=== PATIENT | female | born 1935 | race Caucasian/White ===

== ENCOUNTER 2021-04-19 10:59 | Outpatient (NON) | payer MEDICARE, SELFPAY ==
[2021-04-19 11:50] LABS: IFOB Positive Control Positive; Immunochemical Fecal Occult Bl Negative (N)
== END 2021-04-19 11:00 | disposition home or self-care (01) ==
LOC: ANHLAB 11:02
PROVIDERS: PCP Internal Medicine Geriatric Medicine; Visit Provider Internal Medicine
DX: D50.0 Iron deficiency anemia secondary to blood loss (chronic) (principal)
CPT/HCPCS: 82274

== ENCOUNTER 2024-04-12 16:36 | Outpatient (NON) | payer MEDICARE, SELFPAY ==
[2024-04-12 17:05] LABS: Basophils Absolute Auto 0.02 K/mm3 (0.00-0.10); Basophils Percent Auto 0.2 % (0.0-1.0); Eosinophils Absolute Auto 0.22 K/mm3 (0.02-0.50); Eosinophils Percent Auto 2.4 % (1.0-6.0); Hematocrit 36.6 % (35.0-42.0); Hemoglobin 11.2 g/dL (11.7-13.8); Immature Granulocyte Absolute 0.04 K/mm3 (0.00-0.00); Immature Granulocyte Percent A 0.4 % (0.0-0.0); Lymphocytes Absolute Auto 1.73 K/mm3 (1.10-4.50); Lymphocytes Percent Auto 19.1 % (18.0-42.0); Mean Corpuscular HGB Conc 30.6 g/dL (32-36); Mean Corpuscular Hemoglobin 26.8 pg (27.0-31.0); Mean Corpuscular Volume 87.6 fL (78.0-102.0); Mean Platelet Volume 9.7 fl (9.2-11.8); Monocytes Absolute Auto 0.74 K/mm3 (0.10-0.90); Monocytes Percent Auto 8.2 % (2.0-11.0); Neutrophils Absolute Auto 6.32 K/mm3 (1.70-7.20); Neutrophils Percent Auto 69.7 % (50.0-70.0); Platelet Count Result 230 K/mm3 (150-420); Red Blood Count 4.18 M/mm3 (4.20-5.40); Red Cell Distribution Width 21.6 % (11.6-14.4); White Blood Count 9.1 K/mm3 (4.8-10.8)
[2024-04-12 17:35] LABS: Alanine Aminotransferase 28 U/L (14-59); Alkaline Phosphatase 49 U/L (46-116); Anion Gap 10 mmol/L (4-12); Aspartate Amino Transferase 15 U/L (15-37); Bilirubin,Total 0.4 mg/dL (0.00-1.00); Blood Urea Nitrogen 19 mg/dL (7-18); Calcium 9.7 mg/dL (8.5-10.1); Carbon Dioxide 31 mmol/L (21-32); Chloride 100 mmol/L (98-108); Estimated Glomerular Filt Rate > 60; Glucose 119 mg/dL (70-99); NT Pro B Type Natriuretic Pept 249 pg/mL (0-450); Osmolality Calculated 295 mOsm/kg (285-295); Potassium 4.4 mmol/L (3.5-5.1); Sodium 141 mmol/L (136-145); Total Protein 6.4 g/dL (6.4-8.2)
[2024-04-12 17:37] LABS: CRP < 0.5 mg/dL (0.0-0.9)
[2024-04-12 17:43] LABS: D Dimer 1.92 mg/L (0.19-0.50)
[2024-04-12 18:25] LABS: Erythrocyte Sedimentation Rate 27 mm/hr (0-30)
== END 2024-04-12 16:37 | disposition home or self-care (01) ==
LOC: CHSLAB 16:39
PROVIDERS: PCP Internal Medicine Geriatric Medicine; Visit Provider Internal Medicine Geriatric Medicine
DX: R06.02 Shortness of breath (principal); I24.0 Acute coronary thrombosis not resulting in myocardial infarction; I51.89 Other ill-defined heart diseases; M06.09 Rheumatoid arthritis without rheumatoid factor, multiple sites
CPT/HCPCS: 36415; 80053; 83880; 85025; 85380; 85652; 86140

== ENCOUNTER 2024-05-12 10:06 | Outpatient (NON) | payer MEDICARE, SELFPAY ==
[2024-05-12 10:24] LABS: Hematocrit 33.1 % (35.0-42.0); Hemoglobin 9.9 g/dL (11.7-13.8); Mean Corpuscular HGB Conc 29.9 g/dL (32-36); Mean Corpuscular Hemoglobin 25.7 pg (27.0-31.0); Mean Platelet Volume 9.6 fl (9.2-11.8); Platelet Count Result 256 K/mm3 (150-420); Red Blood Count 3.85 M/mm3 (4.20-5.40); Red Cell Distribution Width 17.3 % (11.6-14.4); White Blood Count 7.8 K/mm3 (4.8-10.8)
[2024-05-12 10:33] LABS: Alanine Aminotransferase 32 U/L (14-59); Albumin Level 3.3 g/dL (3.4-5.0); Alkaline Phosphatase 60 U/L (46-116); Anion Gap 7 mmol/L (4-12); Aspartate Amino Transferase 16 U/L (15-37); Bilirubin,Total 0.4 mg/dL (0.00-1.00); Blood Urea Nitrogen 25 mg/dL (7-18); Calcium 9.5 mg/dL (8.5-10.1); Carbon Dioxide 28 mmol/L (21-32); Chloride 105 mmol/L (98-108); Estimated Glomerular Filt Rate > 60; Glucose 107 mg/dL (70-99); Osmolality Calculated 294 mOsm/kg (285-295); Phosphorus 3.4 mg/dL (2.6-4.7); Potassium 3.6 mmol/L (3.5-5.1); Sodium 140 mmol/L (136-145); Total Protein 7.2 g/dL (6.4-8.2)
[2024-05-12 10:36] LABS: CRP < 0.5 mg/dL (0.0-0.9)
[2024-05-12 10:54] LABS: Band Neutrophils Percent 2 % (0-6); Basophils Absolute Manual 0.15 K/mm3 (0-0.1); Basophils Percent Manual 2 % (0-1); Eosinophils Absolute Manual 1.09 K/mm3 (0.02-0.50); Eosinophils Percent Manual 14 % (1-6); Lymphocytes Absolute Manual 2.18 K/mm3 (1.1-4.5); Lymphocytes Percent Manual 28 % (18-44); Monocytes Percent Manual 9 % (3-9); Neutrophils Percent Manual 45 % (46-73); Platelet Clumps Present; Platelet Estimate Adequate (Adequate); Total Cells Counted 100
[2024-05-12 10:55] LABS: Schistocytes None Seen
[2024-05-12 10:56] LABS: Neutrophils Absolute Manual 3.66 K/mm3 (1.7-7.2)
--- OUTSIDE RECORDS SUMMARY | 2024-05-12 11:24 | XMS_ITS ---
Care Plan - [facility] Created on: May 12, 2024 JINGDON BRIANA Tru : 1935 Sex: Female Author Organization [facility] Address [address] [place] [address] Phone Care Team Providers Care Mandrel Press Hand Name Role Phone JUAN DAVID STONE Primary Care Provider [phone]
--- OUTSIDE RECORDS SUMMARY | 2024-05-12 11:24 | XMS_ITS | Encounter Summary ---
Author Organization [facility] Address [address] [place] [address] Phone Care Team Providers Care Real Estate Clerk Name Role Phone Elsy Chance MD Primary Care Provider +- [phone] Hayden Minor DC Unavailable +[phone] Robby Ruiz MD Unavailable +[phone] Mateo Hogan MD Unavailable +[phone] Lupis Linares MD Unavailable +[phone] Demarcus Cardenas MD Unavailable +[phone] Enrrique Nath MD Unavailable [phone] Ed Zavala MD Unavailable +[phone] Alexey Carrera MD Unavailable +[phone] Tejal MeyerW Unavailable +[phone] Encounter Details Date Type Department Care Team (Late st Contact Info) Description 10/08/2021 Orders Only [facility] [address] [place] [address] Elsy Chance MD [address] [place] [address] Social History Tobacco Use Types Packs/Day Years Used Date Smoking Tobacco: Former Smokeless Tobacco: Never Alcohol Use Standard Drinks/Week Comments Not Currently 0 (1 standard drink = 0.6 oz pur e alcohol) PHQ-2 Answer Date Recorded PHQ-2 Total Score (If total score is 3 or more points, staff should administer the PHQ-9) 6 05/18/2021 Comments No Sex and Gender Information Value Date Recorded Sex Assigned at Not on file Legal Sex Female 10:51 AM ROCK [place]ON Gender Identity Not on file Sexual Orientation Not on file Occupation Industry Job Start Date Job End Date retired Not on file Not on file Not on file documented as of this encounter Plan of Treatment Not on file documented as of this encounter Procedures Procedure Name Priority Date/Time Associated Diagnosis Comments SCAN - RADIOLOGY/IMAGING 10/08/2021 documented in this encounter Results * SCAN - RADIOLOGY/IMAGING (10/08/2021) Anatomical Region Laterality Modality Other Elsy Chance MD Edited Res ult - Final documented in this encounter Visit Diagnoses Not on filedocumented in this encounter Additional Health Concerns Infection Onset Date Last Indicated Resolved Time COVID: Suspected 07/13/2022 07/13/2022 07/13/2022 4:36 PM CDT COVID: Suspected 01/31/2024 01/31/2024 01/31/2024 7:16 PM R[place]ON COVID19 01/31/2024 01/31/2024 02/10/2024 3:05 AM ROCK [place]ON COVID: Recovered Comment:Added based on recent COVID infection. 02/10/2024 02/12/2024 02/25/2024 7:[address] COVID19 02/24/2024 02/24/2024 02/25/2024 7:16 AM R[place]ON COVID: Recovered Comment:Added based on recent COVID infection. 02/25/2024 02/25/2024 COVID19 03/02/2024 03/02/2024 03/12/2024 3:07 AM R[place]ON COVID: Suspected 04/30/2024 04/30/2024 04/30/2024 1:45 PM CDT documented as of this encounter Care Teams Real Estate Clerk Relationship Specialty Start Date End Date Elsy Chance MD PCP - General 05/10/16 Hayden Minor DC Chiropractic Medicine 09/17/16 Robby Ruiz MD [address] [place] [address] [place] [address] Consulting Physician Ophthalmology 09/17/16 Mateo Hogan MD [address] [facility] [address] [place] [address] Consulting Physician Ophthalmology 09/17/16 Lupis Linares MD [address] [facility] [address] [place] [address] Consulting Physician Pain Management 09/17/16 Demarcus Cardenas MD [address] [place] [address] [place] [address] Consulting Physician Gastroenterology 09/17/16 Enrrique Nath MD [address] [place] [address] [address] [place] [address] Consulting Physician Rheumatology 11/05/17 [place] [address] [place] [address] [address] Consulting Physician Cardiovascular Disease 11/05/17 Alexey Carrera MD [place] [address] Referring Physician Allergy and Immunology 05/12/19 Tejal Meyer, [address] [place] [address] Manufacturing Executive Hose Maker 09/09/23 10/02/23 documented as of this encounter
--- OUTSIDE RECORDS SUMMARY | 2024-05-12 11:24 | XMS_ITS | Encounter Summary ---
Author Organization [facility] Address [address] [place] [address] Phone Care Team Providers Care Customer Service Dispatcher Name Role Phone Elsy Chance MD Primary Care Provider + [phone] Hayden Minor DC Unavailable +[phone] Robby Ruiz MD Unavailable +[phone] Mateo Hogan MD Unavailable +[phone] Lupis Linares MD Unavailable +[phone] Demarcus Cardenas MD Unavailable +[phone] Enrrique Nath MD Unavailable [phone] Ed Zavala MD Unavailable +[phone] Alexey Carrera MD Unavailable +[phone] Tejal MeyerW Unavailable [phone] Encounter Details Date Type Department Care Team (Late st Contact Info) Description 08/08/2022 Orders Only [facility] [address] [place] [address] Scanning, Provider Social History Tobacco Use Types Packs/Day Years Used Date Smoking Tobacco: Former Smokeless Tobacco: Never Alcohol Use Standard Drinks/Week Comments Not Currently 0 (1 standard drink = 0.6 oz pur e alcohol) PHQ-2 Answer Date Recorded PHQ-2 Total Score (If total score is 3 or more points, staff should administer the PHQ-9) 4 05/24/2022 Comments No Sex and Gender Information Value Date Recorded Sex Assigned at Not on file Legal Sex Female 10:51 AM RADIO STATION AUDIO ENGINEER Gender Identity Not on file Sexual Orientation Not on file Occupation Industry Job Start Date Job End Date retired Not on file Not on file Not on file documented as of this encounter Plan of Treatment Not on file documented as of this encounter Procedures Procedure Name Priority Date/Time Associated Diagnosis Comments SCAN - RADIOLOGY/IMAGING 08/08/2022 documented in this encounter Results * SCAN - RADIOLOGY/IMAGING (08/08/2022) Anatomical Region Laterality Modality Other us Provider Scanning Final Result documented in this encounter Visit Diagnoses Not on filedocumented in this encounter Additional Health Concerns Infection Onset Date Last Indicated Resolved Time COVID: Suspected 01/31/2024 01/31/2024 01/31/2024 7:16 PM RADIO STATION AUDIO ENGINEER COVID19 01/31/2024 01/31/2024 02/10/2024 3:05 AM RADIO STATION AUDIO ENGINEER COVID: Recovered Comment:Added based on recent COVID infection. 02/10/2024 02/12/2024 02/25/2024 7:[address] COVID19 02/24/2024 02/24/2024 02/25/2024 7:16 AM RADIO STATION AUDIO ENGINEER COVID: Recovered Comment:Added based on recent COVID infection. 02/25/2024 02/25/2024 COVID19 03/02/2024 03/02/2024 03/12/2024 3:07 AM RADIO STATION AUDIO ENGINEER COVID: Suspected 04/30/2024 04/30/2024 04/30/2024 1:45 PM CDT documented as of this encounter Care Teams Customer Service Dispatcher Relationship Specialty Start Date End Date Elsy Chance MD PCP - General 05/10/16 Hayden Minor DC Chiropractic Medicine 09/17/16 Robby Ruiz MD [address] [place] [address] [place] [address] Consulting Physician Ophthalmology 09/17/16 Mateo Hogan MD [address] [facility] [address] [place] [address] Consulting Physician Ophthalmology 09/17/16 Lupis Linares MD [address] [facility] [address] [place] [address] Consulting Physician Pain Management 09/17/16 Demarcus Cardenas MD [address] [place] [address] [address] [place] [address] Consulting Physician Gastroenterology 09/17/16 Enrrique Nath MD [address] [place] [address] [address] [place] [address] Consulting Physician Rheumatology 11/05/17 [place] [id number] [place] [address] [address] [place] [address] Consulting Physician Cardiovascular Disease 11/05/17 Alexey Carrera MD [address] [facility] [place] [address] Referring Physician Allergy and Immunology 05/12/19 Tejal Meyer, [facility] [address] [facility] [address] [place] [address] Rough Rice Tender Bisque Ware Dipper 09/09/23 10/02/23 documented as of this encounter
--- OUTSIDE RECORDS SUMMARY | 2024-05-12 11:24 | XMS_ITS | Encounter Summary ---
Author Organization [facility] Healthcare Address [address] [place] [address] Care Team Providers Care Cistern Room Working Supervisor Name Role Phone Elsy Chance MD Primary Care Provider + [phone] Hayden Minor DC Unavailable +[phone] Robby Ruiz MD Unavailable +[phone] Mateo Hogan MD Unavailable +[phone] Lupis Linares MD Unavailable +[phone] Demarcus Cardenas MD Unavailable +[phone] Enrrique Nath MD Unavailable [phone] Ed Zavala MD Unavailable [phone] Alexey Carrera MD Unavailable +[phone] Encounter Details Date Type Department Care Team (Late st Contact Info) Description 05/10/[address] [facility] Medical Group [facility] [address] [place] [address] Elsy Chance MD [address] [place] [address] Social History Tobacco Use Types Packs/Day Years Used Date Smoking Tobacco: Former Smokeless Tobacco: Never Alcohol Use Standard Drinks/Week Comments Not Currently 0 (1 standard drink = 0.6 oz pur e alcohol) [facility] Utilities Answer Date Recorded In the past 12 months has th e electric, gas, oil, or water company threatened to shut off services in your home? No 02/27/2024 Social Connection and Isolat ion Panel [NHANES] Answer Date Recorded In a typical week, how many times do you talk on the phone with family, friends, or neighbors? More than three times a week 02/27/2024 How often do you get togethe r with friends or relatives? More than three times a week 02/27/2024 How often do you attend chur ch or pentecostalism services? Never 02/27/2024 Do you belong to any clubs o r organizations such as quaker groups, unions, fraternal or athletic groups, or school groups? No 02/27/2024 How often do you attend meet ings of the clubs or organizations you belong to? Never 02/27/2024 Are you , , di vorced, , never , or living with a partner? 02/27/2024 Overall Financial Resource Strain (CARDIA) Answe r Date Recorded How hard is it for you to pa y for the very basics like food, housing, medical care, and heating? Somewhat hard 02/27/2024 PHQ-2 Answer Date Recorded PHQ-2 Total Score (If total score is 3 or more points, staff should administer the PHQ-9) 4 09/08/2023 Hunger Vital Sign Answer Date Recorded Within the past 12 months, y ou worried that your food would run out before you got the money to buy more. Never true 02/26/19 25 Within the past 12 months, t he food you bought just didn't last and you didn't have money to get more. Never true 02/27/2024 PRAPARE - Transportation Answer Date Re corded In the past 12 months, has l ack of transportation kept you from medical appointments or from getting medications? No 02/10 In the past 12 months, has l ack of transportation kept you from meetings, work, or from getting things needed for daily living? No 02/27/2024 PHQ-9 Answer Date Recorded PHQ-9 Total Score 14 09/08/2023 Housing Stability Vital Sign Answer [place] Recorded In the last 12 months, was t here a time when you were not able to pay the mortgage or rent on time? No 02/27/2024 In the past 12 months, how m any times have you moved where you were living? 0 02/27/2024 At any time in the past 12 m [place], were you homeless or living in a usp (including now)? No 02/27/2024 Personal Safety Answer Date Recorded Have you ever been in or are you currently in a harmful physical or emotional relationship or is someone making you feel afraid or unsafe? Denies 02/25/2024 Education Answer Date Recorded What is the highest level of school you have completed or the highest degree you have received? Some college, no degree 02/27/2024 Comments No Sex and Gender Information Value Date Recorded Sex Assigned at Not on file Legal Sex Female 10:51 AM SWATCH FOLDER Gender Identity Not on file Sexual Orientation Not on file Occupation Industry Job Start Date Job End Date retired Not on file Not on file Not on file documented as of this encounter Miscellaneous Notes * Telephone Encounter - Faye Siu LPN - 05/10/2024 4:09 PM CDT Informed , Rodolfo, [phone] that [facility] recommends ER visit since pt is on 2nd antibiotic without improvement and she is weaker now than she has been. Rodolfo did voice understanding and states he will take pt to [facility] ER. Rodolfo had no further questions/concerns at this time. * Telephone Encounter - Lisa Hanson NP - 05/10/2024 3:54 PM CDT Patient needs to present to the emergency room for further evaluation at this time given 2 different antibiotics and worsening symptoms. * Telephone Encounter - Faye Siu LPN - 05/10/2024 3:49 PM CDT Spoke with pt , Rodolfo, [phone] who states pt is taking Levaquin & Tessalon Perles as DESI advised at office visit 05/07/24. However, Rodolfo states pt cough and SOB have not improved at all and he feels pt is getting weaker. Rodolfo states Spo2 was 89% earlier this morning at rest and when he repeated the test about 10 - 15 minutes later, it did come up to 91 %. TO DESI - Please advise. * Telephone Encounter - Maggy Montes - 05/10/2024 3:40 PM CDT Pt's cough is not improving, wheezing, SOB. O2 this morning 89 and 91 this afternoon. Taking the abx Levaquin and tessalon pearls. Also taking an expectorant. Cough is non-productive. documented in this encounter Plan of Treatment Not on file documented as of this encounter Visit Diagnoses Not on filedocumented in this encounter Additional Health Concerns Infection Onset Date Last Indicated Resolved Time COVID: Recovered Comment:Added based on recent COVID infection. 02/25/2024 02/25/2024 documented as of this encounter Care Teams Cistern Room Working Supervisor Relationship Specialty Start Date End Date Elsy Chance MD PCP - General 05/10/16 Hayden Minor DC Chiropractic Medicine 09/17/16 Robby Ruiz MD [address] [place] [address] [place] [address] Consulting Physician Ophthalmology 09/17/16 Mateo Hogan MD [facility][note 3] [address] [address] Consulting Physician Ophthalmology 09/17/16 Lupis Linares MD [address] [place] [place], [place] [address] [address] [place] [address] Consulting Physician Pain Management 09/17/16 Demarcus Cardenas MD [address] [place] [address] [address] [place] [address] Consulting Physician Gastroenterology 09/17/16 Enrrique Nath MD [address] [place] [address] [address] [place] [address] Consulting Physician Rheumatology 11/05/17 [place] [address] [facility] [address] [place] [address] Consulting Physician Cardiovascular Disease 11/05/17 Alexey Carrera MD [place] [address] Referring Physician Allergy and Immunology 05/12/19 documented as of this encounter
--- OUTSIDE RECORDS SUMMARY | 2024-05-12 11:24 | XMS_ITS | Encounter Summary ---
Author Organization [facility] Address [address] [place] [address] Phone Care Team Providers Care Control And Recovery Special Tactics Name Role Phone Elsy Chance MD Primary Care Provider + [phone] Hayden Minor DC Unavailable +[phone] Robby Ruiz MD Unavailable [phone] Mateo Hogan MD Unavailable [phone] Lupis Linares MD Unavailable +[phone] Demarcus Cardenas MD Unavailable +[phone] Enrrique Nath MD Unavailable [phone] Ed Zavala MD Unavailable +[phone] Alexey Carrera MD Unavailable +[phone] Tejal MeyerW Unavailable [phone] Encounter Details Date Type Department Care Team (Late st Contact Info) Description 08/30/2021 Orders Only [facility] [address] [place] [address] Scanning, Provider Social History Tobacco [...] on file Legal Sex Female 10:51 AM BOBBIN HANDLER Gender Identity Not on file Sexual Orientation Not on file Occupation Industry Job Start Date Job End Date retired Not on file Not on file Not on file documented as of this encounter Plan of Treatment Not on file documented as of this encounter Procedures Procedure Name Priority Date/Time Associated Diagnosis Comments SCAN - LABS 08/30/2021 documented in this encounter Results * SCAN - LABS (08/30/2021) us Provider Scanning Final Result documented in this encounter Visit Diagnoses Not on filedocumented in this encounter Additional Health Concerns Infection Onset Date Last Indicated Resolved Time COVID: Suspected 07/13/2022 07/13/2022 07/13/2022 4:36 PM CDT COVID: Suspected 01/31/2024 01/31/2024 01/31/2024 7:16 PM BOBBIN HANDLER COVID19 01/31/2024 01/31/2024 02/10/2024 3:05 AM BOBBIN HANDLER COVID: Recovered Comment:Added based on recent COVID infection. 02/10/2024 02/12/2024 02/25/2024 7:[address] COVID19 02/24/2024 02/24/2024 02/25/2024 7:16 AM BOBBIN HANDLER COVID: Recovered Comment:Added based on recent COVID infection. 02/25/2024 02/25/2024 COVID19 03/02/2024 03/02/2024 03/12/2024 3:07 AM BOBBIN HANDLER COVID: Suspected 04/30/2024 04/30/2024 04/30/2024 1:45 PM CDT documented as of this encounter Care Teams Control And Recovery Special Tactics Relationship Specialty Start Date End Date Elsy Chance MD PCP - General 05/10/16 Hayden Minor, [facility] Chiropractic Medicine 09/17/16 Robby Ruiz MD [address] [place] [address] [place] [address] Consulting Physician Ophthalmology 09/17/16 Mateo Hogan MD [address] [facility] [address] [place] [address] Consulting Physician Ophthalmology 09/17/16 Lupis Linares MD [address] [facility] [address] [place] [address] Consulting Physician Pain Management 09/17/16 Demarcus Cardenas MD [address] [place] [address] [address] [place] [address] Consulting Physician Gastroenterology 09/17/16 Enrrique Nath MD [address] [place] [address] [address] [place] [address] Consulting Physician Rheumatology 11/05/17 [place] [address] [facility] [address] [place] [address] Consulting Physician Cardiovascular Disease 11/05/17 Alexey Carrera MD [facility] [facility] [place] [address] Referring Physician Allergy and Immunology 05/12/19 Tejal Meyer, [facility] [address] [facility] [address] [place] [address] Tag Meter Operator Aircraft Electrician 09/09/23 10/02/23 documented as of this encounter
--- OUTSIDE RECORDS SUMMARY | 2024-05-12 11:24 | XMS_ITS | Encounter Summary ---
Author Organization [facility] Address [address] [place] [address] Care Team Providers Care Slotter Operator Helper Name Role Phone Unavailable Primary Care Provider Unavailabl e Encounter Details Date Type Department Care Team (Latest Contact Info) Description 03/22/2002 Outpatient Historical [facility] Yaakov Godoy MD [address] [place] [address] JOINT PAIN-PELVIS (Primary Dx) Social History Tobacco Use Types Packs/Day Years Used Date Smoking Tobacco: Never Assessed Comments Unknown Sex and Gender Information Value Date Recorded Sex Assigned at Not on file Legal Sex Female 3:02 AM LEATHER CRAFTSMAN Gender Identity Not on file Sexual Orientation Not on file documented as of this encounter Plan of Treatment Not on file documented as of this encounter Visit Diagnoses Diagnosis Pain in joint, pelvic region and thigh- Primary documented in this encounter
--- OUTSIDE RECORDS SUMMARY | 2024-05-12 11:24 | XMS_ITS | Continuity of Care Document ---
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 [address] [place] [address]- Encounter Diagnosis Pneumonia(Discharge Diagnosis) - 05/10/24 Cough(Discharge Diagnosis) - 05/10/24 Discharge Disposition: Home or Self Care Attending Physician: Zhang Yeboah MD Referring Physician: Zhang Yeboah MD Encounter Type: Emergency Allergies, Adverse Reactions, Alerts Substance Criticality Severity Reaction Reaction Severity Status codeine Unable to assess criticality Unknown Stomach pain Active amoxicillin Unable to assess criticality Unknown Active cephalexin Unable to assess criticality Unknown Active clarithromycin Unable to assess criticality Unknown Diarrhea Active penicillin Unable to assess criticality Unknown Active niacin Unable to assess criticality Unknown Flushing Active lisinopril Unable to assess criticality Unknown Active etodolac Unable to assess criticality Unknown Active leflunomide Unable to assess criticality Unknown Active sulfa drugs Unable to assess criticality Unknown Active iodine Unable to assess criticality Unknown Active Keflex Unable to assess criticality Unknown Active Biaxin Unable to assess criticality Unknown Active contrast media (iodine-based) Unable to assess criticality Unknown Active BOOKER inhibitors Unable to assess criticality Unknown Cough Active traMADol Unable to assess criticality Unknown Active DULoxetine Unable to assess criticality Unknown Active Immunizations Given and Recorded Vaccine Date Status Refusal Reason influenza virus vaccine, inactivated 09/28/23 Mohan rded influenza virus vaccine, inactivated 03/24/23 Mohan rded influenza virus vaccine, inactivated 12/02/22 Mohan rded influenza virus vaccine, inactivated 11/28/21 Mohan rded influenza virus vaccine, inactivated 12/11/20 Mohan rded influenza virus vaccine, inactivated 12/01/20 Mohan rded influenza virus vaccine, inactivated 01/10/20 Mohan rded influenza virus vaccine, inactivated 12/23/18 Mohan rded influenza virus vaccine, inactivated 12/01/13 Mohan rded influenza virus vaccine, inactivated 12/02/12 Mohan rded influenza virus vaccine, inactivated 12/30/11 Mohan rded RSV vaccine preF3, recombinant 06/11/23 Recorded SARS-CoV-2 (COVID-19) [employer] (cvx [id number]) 06/11/23 Re corded SARS-CoV-2 mRNA (tozinameran) vaccine 10/13/20 Rec orded SARS-CoV-2 mRNA (tozinameran) vaccine 04/05/20 Rec orded SARS-CoV-2 mRNA (tozinameran) vaccine 03/15/20 Rec orded zoster vaccine, recombinant 10/26/18 Recorded pneumococcal 13-valent conjugate vaccine 04/11/14 Recorded tetanus/diphtheria/pertussis, acel(Tdap) 02/08/11 Recorded Medications Albuterol (Eqv-Proventil HFA) 0 Refill(s) Start Date: 09/25/23 Status: Ordered Repeat number: 1 amLODIPine 2.5 mg oral tablet = 2 tab, Oral, Daily, # 30 tab, 0 Refill(s) Start Date: 09/25/23 Status: Ordered Quantity: 30.0 Unit: Repeat number: 1 benzonatate 200 mg oral capsule TID, PRN as needed for cough, 0 Refill(s) Start Date: 05/10/24 Status: Ordered Repeat number: 1 buPROPion 150 mg/24 hours (XL) oral tablet, extended release = 1 tab, Oral, every 24 hr, # 30 tab, 0 Refill(s) Start Date: 09/15/23 Status: Ordered Quantity: 30.0 Unit: Repeat number: 1 cholecalciferol 50 mcg (2000 intl units) oral capsule = 1 cap, Oral, Daily, # 60 cap, 0 Refill(s) Start Date: 09/25/23 Status: Ordered Quantity: 60.0 Unit: Repeat number: 1 Crestor 10 mg oral tablet = 1 tab, Oral, Daily, # 30 tab, 0 Refill(s) Start Date: 09/15/23 Status: Ordered Quantity: 30.0 Unit: Repeat number: 1 donepezil 10 mg oral tablet = 1 tab, Oral, every day at bedtime, # 30 tab, 0 Refill(s) Start Date: 09/25/23 Status: Ordered Quantity: 30.0 Unit: Repeat number: 1 famotidine 20 mg oral tablet = 1 tab, Oral, BID, # 30 tab, 0 Refill(s) Start Date: 09/15/23 Status: Ordered Quantity: 30.0 Unit: Repeat number: 1 hydroxychloroquine 200 mg oral tablet 1 tab, Oral, Daily, 0 Refill(s) Start Date: 03/02/24 Status: Ordered Repeat number: 1 Jardiance 25 mg oral tablet = 1 tab, Oral, every morning, # 30 tab, 0 Refill(s) Start Date: 09/15/23 Status: Ordered Quantity: 30.0 Unit: Repeat number: 1 labetalol 100 mg oral tablet = 1 tab, Oral, BID, # 60 tab, 0 Refill(s) Start Date: 09/25/23 Status: Ordered Quantity: 60.0 Unit: Repeat number: 1 levoFLOXacin 500 mg oral tablet 1 tab, every 24 hr, 0 Refill(s) Start Date: 05/10/24 Status: Ordered Repeat number: 1 metFORMIN 500 mg oral tablet = 1 tab, Oral, BID, # 60 tab, 0 Refill(s) Start Date: 09/15/23 Status: Ordered Quantity: 60.0 Unit: Repeat number: 1 MiraLax oral powder for reconstitution 17 gm, Oral, Daily, # 238 gm, 0 Refill(s) Start Date: 09/15/23 Status: Ordered Quantity: 238.0 Unit: g Repeat number: 1 Myrbetriq 25 mg oral tablet, extended release = 1 tab, Oral, Daily, do not crush or chew, # 30 tab, 0 Refill(s) Start Date: 09/25/23 Status: Ordered Quantity: 30.0 Unit: Repeat number: 1 PreserVision AREDS 0 Refill(s) Start Date: 09/25/23 Status: Ordered Repeat number: 1 Problem List Diagnosis Diagnosis Type Effective Dates [facility] Service Informant Pneumonia Discharge Diagnosis 05/10/24 Cough Discharge Diagnosis 05/10/24 Procedures Procedure Date Related Diagnosis Body Site Status Cardiac catheterization 1 05/08/17 Completed Cataract extraction 2008 Compl eted Cholecystectomy; 1989 Complete d Dilation and curettage 1959 Co mpleted Adenoidectomy, primary; age 12 or over 1942 Completed Tonsillectomy 1942 Completed Hysterectomy Completed Sinusotomy frontal; oblitera tive, with osteoplastic flap, coronal incision Completed 1NORMAL CORONARIES Results Laboratory List Name Date Automated Diff 05/10/24 BNP 05/10/24 CBC w/ Diff 05/10/24 Comprehensive Metabolic Panel (CMP) 05/10 Coronavirus (COVID-19)/Flu/RSV (GeneXper t) 05/10/24 Lactic Acid (Venous) 05/10/24 Most recent to oldest [Reference Range]: 1 Estimated Creatinine Clearance 48.65 mL/ min 1 (05/10/24 6:07 PM) WBC [4.50-11.00 x10^3/mcL] 8.51 x10^3/mc L (05/10/24 5:38 PM) RBC [4.00-5.20 x10^6/mcL] 3.62 x10^6/mcL *LOW* (05/10/24 5:38 PM) Neutro Auto [45.0-76.0 %] 59.0 % (05/10/24 5:38 PM) Lymph Auto [14.0-45.0 %] 18.3 % (05/10/24 5:38 PM) Camp Auto [1.0-10.0 %] 10.8 % *HI* (05/10/24 5:38 PM) Basophil Auto [0.0-2.0 %] 0.4 % (05/10/24 5:38 PM) BUN [10-20 mg/dL] 18 mg/dL (05/10/24 5:38 PM) Glucose Level [70-105 mg/dL] 98 mg/dL (05/10/24 5:38 PM) Potassium Level [3.5-5.1 mmol/L] 4.2 mmo l/L (05/10/24 5:38 PM) Baso Absolute [0.00-0.20 x10^3/mcL] 0.03 x10^3/mcL (05/10/24 5:38 PM) MCV [80.0-100.0 fL] 84.3 fL (05/10/24 5:38 PM) AST [5-34 unit/L] 17 unit/L (05/10/24 5:38 PM) ALT [0-55 IntlUnit/L] 31 IntlUnit/L (05/10/24 5:38 PM) MCHC [31.0-36.0 gm/dL] 31.5 gm/dL (05/10/24 5:38 PM) Sodium Level [136-145 mmol/L] 141 mmol/L (05/10/24 5:38 PM) Lymph Absolute [1.00-4.80 x10^3/mcL] 1.5 6 x10^3/mcL (05/10/24 5:38 PM) Hct [38.0-47.0 %] 30.5 % *LOW* (05/10/24 5:38 PM) Calcium Level [8.4-10.2 mg/dL] 10.0 mg/d L (05/10/24 5:38 PM) Camp Absolute [0.00-0.80 x10^3/mcL] 0.92 x10^3/mcL *HI* (05/10/24 5:38 PM) Albumin Level [3.4-4.8 gm/dL] 3.4 gm/dL (05/10/24 5:38 PM) Protein Total [6.4-8.3 gm/dL] 6.6 gm/dL (05/10/24 5:38 PM) MCH [25.0-35.0 pg] 26.5 pg (05/10/24 5:38 PM) Neutro Absolute [1.80-7.70 x10^3/mcL] 5. 02 x10^3/mcL (05/10/24 5:38 PM) Bilirubin Total [0.2-1.2 mg/dL] 0.3 mg/d L (05/10/24 5:38 PM) Hgb [12.0-16.0 gm/dL] 9.6 gm/dL *LOW* (05/10/24 5:38 PM) Alk Phos [40-150 IntlUnit/L] 41 IntlUnit /L (05/10/24 5:38 PM) MPV [6.0-11.0 fL] 8.9 fL (05/10/24 5:38 PM) Platelets [150-400 x10^3/mcL] 211 x10^3/ mcL (05/10/24 5:38 PM) CO2 [22.0-29.0 mEq/L] 23.0 mEq/L (05/10/24 5:38 PM) Eos Absolute [0.00-0.45 x10^3/mcL] 0.96 x10^3/mcL *HI* (05/10/24 5:38 PM) Lactic Acid, Plasma (Venous) [0.5-2.2 mm ol/L] 2.2 mmol/L (05/10/24 5:38 PM) BNP [10.0-100.0 pg/mL] 101.1 pg/mL *HI* (05/10/24 5:38 PM) Chloride Level [98-107 mmol/L] 107 mmol/ L (05/10/24 5:38 PM) Globulin Level [2.0-4.2 gm/dL] 3.2 gm/dL (05/10/24 5:38 PM) Albumin/Globulin Ratio [1.1-2.2 ratio] 1 .1 ratio (05/10/24 5:38 PM) eGFR CKD-EPI 75 mL/min/1.73m 2 *NA* (05/10/24 5:38 PM) Imm Gran Absolute [0.00-0.10 x10^3/mcL] 0.02 x10^3/mcL (05/10/24 5:38 PM) Imm Gran Auto [0.0-0.5 %] 0.2 % (05/10/24 5:38 PM) NRBC Absolute 0.00 x10^3/mcL *NA* (05/10/24 5:38 PM) NRBC Auto [0.0-0.0 /100(WBCs)] 0.0 /100( WBCs) (05/10/24 5:38 PM) RDW-CV [11.0-16.0 %] 17.2 % *HI* (05/10/24 5:38 PM) Coronavirus (COVID-19) PCR (GeneXpert) [ Negative] Negative *NA* (05/10/24 5:38 PM) Flu A PCR (GeneXpert) [Negative] Negativ e *NA* (05/10/24 5:38 PM) Flu B PCR (GeneXpert) [Negative] Negativ e *NA* (05/10/24 5:38 PM) RSV PCR (GeneXpert) [Negative] Negative *NA* (05/10/24 5:38 PM) Creatinine Level [0.57-1.11 mg/dL] 0.77 mg/dL (05/10/24 5:38 PM) Anion Gap [8.0-16.0 mmol/L] 11.0 mmol/L (05/10/24 5:38 PM) Eos Auto [0.0-9.0 %] 11.3 % *HI* (05/10/24 5:38 PM) 1Result Comment: Calculated using method: Cockcroft-Gault (Actual Weight) 2Interpretive Data: GFR INTERPRETATION AGE AVG GFR 20-29 116 ml/min/1.73 m2 30-39 107 ml/min/1.73 m2 40-49 99 ml/min/1.73 m2 50-59 93 ml/min/1.73 m2 60-69 85 ml/min/1.73 m2 70+ 75 ml/min/1.73 m2 Chronic Kidney Disease-Less than 60 ml/min/1.73 m2 Kidney Failure-Less than 15 ml/min/1.73 m2 Vital Signs Most recent to oldest [Reference Range]: 1 2 3 Level of Consciousness Alert (05/10/24 5:44 PM) Orientation Assessment Oriented x 4 (05/10/24 5:44 PM) Affect Quality Calm (05/10/24 5:44 PM) Behavior Appropriate (05/10/24 5:44 PM) Hallucinations Present None (05/10/24 5:44 PM) Temperature Temporal Artery [36.3-37.8 degC] 36.3 degC (05/10/24 5:15 PM) Peripheral Pulse Rate [60-10 0 bpm] 80 bpm (05/10/24 5:15 PM) Respiratory Rate [14-20 br/min] 18 br/min (05/10/24 5:15 PM) Blood Pressure [90-120/60-80 mmHg] 142/68mmHg *HI* (05/10/24 6:30 PM) 142/60mmHg *HI* (05/10/24 6:00 PM) 152/69mmHg *HI* (05/10/24 5:15 PM) Mean Arterial Pressure, Cuff [70-110 mmHg] 93 mmHg (05/10/24 6:30 PM) 87 mmHg (05/10/24 6:00 PM) 97 mmHg (05/10/24 5:15 PM) Social History Social History Type Response Smoking Status Former smoker, quit more than 30 days ago entered on: 09/15/23 Sex Female Sex Representation Female (finding) Hospital Discharge Instructions Patient Education 05/10/2024 18:54:03 Cough, Adult Cough, Adult Coughing is a reflex that clears your throat and your airways (respiratory system). Coughing helps to heal and protect your lungs. It is normal to cough occasionally, but a cough that happens with other symptoms or lasts a long time may be a sign of a condition that needs treatment. An acute cough may only last 2???3 weeks, while a chronic cough may last 8 or more weeks. Coughing is commonly caused by: ??? Infection of the respiratory systemby viruses or bacteria. ??? Breathing in substances that irritate your lungs. ??? Allergies. ??? Asthma. ??? Mucus that runs down the back of your throat (postnasal drip). ??? Smoking. ??? Acid backing up from the stomach into the esophagus (gastroesophageal reflux). ??? Certain medicines. ??? Chronic lung problems. ??? Other medical conditions such as heart failure or a blood clot in the lung (pulmonary embolism). Follow these instructions at home: Medicines ??? Take vdxe-pmb-[id number] and prescription medicines only as told by your health care provider. ??? Talk with your health care provider before you take a cough suppressant medicine. Lifestyle ??? Avoid cigarette smoke. Do not use any products that contain nicotine or tobacco, such as cigarettes, e-cigarettes, and chewing tobacco. If you need help quitting, ask your health care provider. ??? Drink enough fluid to keep your urine pale yellow. ??? Avoid caffeine. ??? Do not drink alcohol if your health care provider tells you not to drink. General instructions ??? Pay close attention to changes in your cough. Tell your health care provider about them. ??? Always cover your mouth when you cough. ??? Avoid things that make you cough, such as perfume, candles, cleaning products, or campfire or tobacco smoke. ??? If the air is dry, use a cool mist vaporizer or humidifier in your bedroom or your home to helploosen secretions. ??? If your cough is worse at night, try to sleep in a semi-upright position. ??? Rest as needed. ??? Keep all follow-up visits as told by your health care provider. This is important. Contact a health care provider if you: ??? Have new symptoms. ??? Cough up pus. ??? Have a cough that does not get better after 2???3 weeks or gets worse. ??? Cannot control your cough with cough suppressant medicines and you are losing sleep. ??? Have pain that gets worse or pain that is not helped with medicine. ??? Have a fever. ??? Have unexplained weight loss. ??? Have night sweats. Get help right away if: ??? You cough up blood. ??? You have difficulty breathing. ??? Your heartbeat is very fast. These symptoms may represent a serious problem that is an emergency. Do not wait to see if the symptoms will go away. Get medical help right away. Call your local emergency services (911 in the [place] Do not drive yourself to the hospital. Summary ??? Coughing is a reflex that clears your throat and your airways. It is normal to cough occasionally, but a cough that happens with other symptoms or lasts a long time may be a sign of a condition that needs treatment. ??? Take ztpn-ngk-dtbmdkd and prescription medicines only as told by your health care provider. ??? Always cover your mouth when you cough. ??? Contact a health care provider if you have new symptoms or a cough that does not get better after 2???3 weeks or gets worse. This information is not intended to replace advice given to you by your health care provider. Make sure you discuss any questions you have with your health care provider. Document Revised: 02/15/2019 Document Reviewed: 02/15/2019 [employer] Patient Education ?? 2022 [employer]. 05/10/2024 18:54:01 Community-Acquired Pneumonia, Adult, Yptm-xg-Yatj Community-Acquired Pneumonia, Adult Pneumonia is an infection of the lungs. It causes irritation and swelling in the airways of the lungs. Mucus and fluid may also build up inside the airways. This may cause coughing and trouble breathing. One type of pneumonia can happen while you are in a hospital. A different type can happen when you are not in a hospital (community-acquired pneumonia). What are the causes? This condition is caused by germs (viruses, bacteria, or fungi). Some types of germs can spread from person to person. Pneumonia is not thought to spread from person to person. What increases the risk? You are more likely to develop this condition if: ??? You have a long-term (chronic) disease, such as: ??? Disease of the lungs. This may be chronic obstructive pulmonary disease (COPD) or asthma. ??? Heart failure. ??? Cystic fibrosis. ??? Diabetes. ??? Kidney disease. ??? Sickle cell disease. ??? HIV. ??? You have other health problems, such as: ??? Your body's defense system (immune system) is weak. ??? A condition that may cause you to breathe in fluids from your mouth and nose. ??? You had your spleen taken out. ??? You do not take good care of your teeth and mouth (poor dental hygiene). ??? You use or have used tobacco products. ??? You travel where the germs that cause this illness are common. ??? You are near certain animals or the places they live. ??? You are older than 65 years of age. What are the signs or symptoms? Symptoms of this condition include: ??? A cough. ??? A fever. ??? Sweating or chills. ??? Chest pain, often when you breathe deeply or cough. ??? Breathing problems, such as: ??? Fast breathing. ??? Trouble breathing. ??? Shortness of breath. ??? Feeling tired (fatigued). ??? Muscle aches. How is this treated? Treatment for this condition depends on many things, such as: ??? The cause of your illness. ??? Your medicines. ??? Your other health problems. Most adults can be treated at home. Sometimes, treatment must happen in a hospital. ??? Treatment may include medicines to kill germs. ??? Medicines may depend on which germ caused your illness. Very bad pneumonia is rare. If you get it, you may: ??? Have a machine to help you breathe. ??? Have fluid taken away from around your lungs. Follow these instructions at home: Medicines ??? Take ylng-hhj-spbbujc and prescription medicines only as told by your doctor. ??? Take cough medicine only if you are losing sleep. Cough medicine can keep your body from takingmucus away from your lungs. ??? If you were prescribed an antibiotic medicine, take it as told by your doctor. Do not stop taking the antibiotic even if you start to feel better. Lifestyle ??? Do not drink alcohol. ??? Do not use any products that contain nicotine or tobacco, such as cigarettes, e-cigarettes, andchewing tobacco. If you need help quitting, ask your doctor. ??? Eat a healthy diet. This includes a lot of vegetables, fruits, whole grains, low-fat dairy products, and low-fat (lean) protein. General instructions ??? Rest a lot. Sleep for at least 8 hours each night. ??? Sleep with your head and neck raised. Put a few pillows under your head or sleep in a recliningchair. ??? Return to your normal activities as told by your doctor. Ask your doctor what activities are safe for you. ??? Drink enough fluid to keep your pee (urine) pale yellow. ??? If your throat is sore, rinse your mouth often with salt water. To make salt water, dissolve ?1 tsp (3???6 g) of salt in 1 cup (237 mL) of warm water. ??? Keep all follow-up visits as told by your doctor. This is important. How is this prevented? You can lower your risk of pneumonia by: ??? Getting the pneumonia shot (vaccine). These shots have different types and schedules. Ask your doctor what works best for you. Think about getting this shot if: ??? You are older than 65 years of age. ??? You are 19???65 years of age and: ??? You are being treated for cancer. ??? You have long-term lung disease. ??? You have other problems that affect your body's defense system. Ask your doctor if you have oneof these. ??? Getting your flu shot every year. Ask your doctor which type of shot is best for you. ??? Going to the dentist as often as told. ??? Washing your hands often with soap and water for at least 20 seconds. If you cannot use soap and water, use hand drop press hand. Contact a doctor if: ??? You have a fever. ??? You lose sleep because your cough medicine does not help. Get help right away if: ??? You are short of breath and this gets worse. ??? You have more chest pain. ??? Your sickness gets worse. This is very serious if: ??? You are an older adult. ??? Your body's defense system is weak. ??? You cough up blood. These symptoms may be an emergency. Do not wait to see if the symptoms will go away. Get medical help right away. Call your local emergency services (911 in the [place] Do not drive yourself to the hospital. Summary ??? Pneumonia is an infection of the lungs. ??? Community-acquired pneumonia affects people who have not been in the hospital. Certain germs can cause this infection. ??? This condition may be treated with medicines that kill germs. ??? For very bad pneumonia, you may need a hospital stay and treatment to help with breathing. This information is not intended to replace advice given to you by your health care provider. Make sure you discuss any questions you have with your health care provider. Document Revised: 11/09/2019 Document Reviewed: 11/09/2019 [employer] Patient Education ?? 2022 [employer] Follow Up Care 05/10/2024 17:02:31 With:Elsy Chance Address: [address] [place] [address]- When: Unknown Patient Care team information Care Team Personnel Name: Elsy Chance Position: No Access Member Role: Primary Care Physician Address: [address] [place] [address]- Telecom: Care Team Related Persons Name: SARAY ROSSI Insurance Providers Guarantor name: BRIANA Ott [facility] Information #: 1 Payer: [employer] Member Number: [id number] Policy Number: NA Group Number: NA Payer Identifier[place] Information #: 2 Payer: [employer] Member Number: [id number] [place] Group Number: [place] P[place] Identifier[place]
--- OUTSIDE RECORDS SUMMARY | 2024-05-12 11:24 | XMS_ITS | Clinical Summary ---
[facility] Address [address] 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
--- OUTSIDE RECORDS SUMMARY | 2024-05-12 11:24 | XMS_ITS | Encounter Summary ---
Author Organization [facility] Address [address] [facility] [place] [address] Care Team Providers Care Time Clock Mechanic Name Role Phone Unavailable Primary Care Provider Unavailabl e Encounter Details Date Type Department Care Team (Late st Contact Info) Description 12/08/2020 Lab Requisition [facility] [address] [facility] [place] [address] Mohinder Roque Jr., MD [address] [facility] [address] [place] [address] Social History Tobacco Use Types Packs/Day Years Used Date Smoking Tobacco: Never Assessed Sex and Gender Information Value Date Recorded Sex Assigned at Not on file Gender Identity Not on file Sexual Orientation Not on file documented as of this encounter Plan of Treatment Not on file documented as of this encounter Procedures Procedure Name Priority Date/Time Associated Diagnosis Comments DERMATOPATHOLOGY Routine 12/07/2020 12:0 0 AM CDT documented in this encounter Results * DERMATOPATHOLOGY (12/07/2020 12:00 AM CDT) Case Report Dermatopathology Report Case: [id number] Authorizing Provider: Mohinder Roque Jr., MD Collected: 12/07/2020 12:00 AM Ordering Location: [facility] Received: 12/08/2020 01:20 PM Pathologist: Yadira Lovell MD Specimen: Skin, right central malar cheek 1:48 PM CDT DERMATOPATHOLOGY LABORATORY Final Diagnosis Specimen A. SKIN, right central malar cheek: BENIGN VERRUCOUS KERATOSIS (L82.1) 1:48 PM CDT DERMATOPATHOLOGY LABORATORY Clinical History Verruca vulgaris vs actinic keratosis. 1:48 PM CDT DERMATOPATHOLOGY LABORATORY Gross Description Specimen A: Received is one formalin filled container labeled with the patient's name and designated right central malar cheek. The specimen consists of a shave biopsy measuring [id number]. Jar 0. 1:48 PM CDT DERMATOPATHOLOGY LABORATORY Microscopic Description Specimen A. SKIN, right central malar cheek: Sections show hyperkeratosis, papillomatosis, hypergranulosis, and acanthosis. These histological findings can be seen in a verruca vulgaris or a seborrheic keratosis. 1:48 PM CDT DERMATOPATHOLOGY LABORATORY Disclaimer An external and internal positive and negative controls are appropriate for the histochemical, immunohistochemical and immunofluorescence stain(s) in this case (if any), except where stated explicitly. The performance characteristics of the stain(s) cited in this report were developed and its performance characteristic determined by the Dermatopathology Laboratory at [facility], directed by Dr. Afsaneh Nunes. These tests need not be, and therefore are not, approved by the [place] Food and Drug Administration. The tests are used for clinical purposes. Billing Codes Specimen Charges Stain Charges 75418 1 1:48 PM CDT DERMATOPATHOLOGY LABORATORY Embedded Images 1:48 PM CDT DERMATOPATHOLOGY LABORATORY Pathology/Cytolog y TISSUE SPECIMEN FROM SKIN / Unknown 12/07/2020 12/08/2020 1:20 PM CDT Mohinder Roque Jr., MD LAB - PATHOLOGY /CYTOLOGY ORDERABLES DERMATOPATHOLOGY LABORATORY [facility] - Department of Dermatology [address], [address] [phone] documented in this encounter Visit Diagnoses Not on filedocumented in this encounter
--- OUTSIDE RECORDS SUMMARY | 2024-05-12 11:24 | XMS_ITS | Encounter Summary ---
Author Organization [facility] Address [address] [place] [address] Phone Care Team Providers Care Synthetic Filament Spinner Name Role Phone Elsy Chance MD Primary Care Provider +- [phone] Hayden Minor DC Unavailable [phone] Robby Ruiz MD Unavailable [phone] Mateo Hogan MD Unavailable [phone] Lupis Linares MD Unavailable [phone] Demarcus Cardenas MD Unavailable [phone] Enrrique Nath MD Unavailable [phone] Ed Zavala MD Unavailable [phone] Alexey Carrera MD Unavailable [phone] Tejal MeyerW Unavailable [phone] Encounter Details Date Type Department Care Team (Late st Contact Info) Description 11/29/2021 Orders Only [facility] [address] [place] [address] Elsy Chance MD [address] [place] [address] Social History Tobacco Use Types Packs/Day Years [...] on file 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 Gender Identity Not on file Sexual Orientation Not on file Occupation Industry Job Start Date Job End Date retired Not on file Not on file Not on file documented as of this encounter Plan of Treatment Not on file documented as of this encounter Procedures Procedure Name Priority Date/Time Associated Diagnosis Comments SCAN - LABS 11/29/2021 documented in this encounter Results * SCAN - LABS (11/29/2021) Elsy Chance MD Final Resu lt documented in this encounter Visit Diagnoses Not on filedocumented in this encounter Additional Health Concerns Infection Onset Date Last Indicated Resolved Time COVID: Suspected 07/13/2022 07/13/2022 07/13/2022 4:36 PM CDT COVID: Suspected 01/31/2024 01/31/2024 01/31/2024 7:16 PM UI UX DEVELOPER COVID19 01/31/2024 01/31/2024 02/10/2024 3:05 AM UI UX DEVELOPER COVID: Recovered Comment:Added based on recent COVID infection. 02/10/2024 02/12/2024 02/25/2024 7:[address] COVID19 02/24/2024 02/24/2024 02/25/2024 7:16 AM UI UX DEVELOPER COVID: Recovered Comment:Added based on recent COVID infection. 02/25/2024 02/25/2024 COVID19 03/02/2024 03/02/2024 03/12/2024 3:07 AM UI UX DEVELOPER COVID: Suspected 04/30/2024 04/30/2024 04/30/2024 1:45 PM CDT documented as of this encounter Care Teams Synthetic Filament Spinner Relationship Specialty Start Date End Date Elsy Chance MD PCP - General 05/10/16 Hayden Minor DC Chiropractic Medicine 09/17/16 Robby Ruiz MD [address] [place] [address] [place] [address] Consulting Physician Ophthalmology 09/17/16 Mateo Hogan MD [address] [facility] [address] [place] [address] Consulting Physician Ophthalmology 09/17/16 Lupis Linares MD [address] [facility] [address] [place] [address] Consulting Physician Pain Management 09/17/16 Demarcus Cardenas MD [address] [place] [address] [place] [address] Consulting Physician Gastroenterology 09/17/16 Enrrique Nath MD [address] [place] [address] [place] [address] Consulting Physician Rheumatology 11/05/17 [place] [id number] [address] Consulting Physician Cardiovascular Disease 11/05/17 Alexey Carrera MD [address] [place] [address] [facility] [place] [address] Referring Physician Allergy and Immunology 05/12/19 Tejal Meyer, [address] [place] [address] Software Configuration Specialist Gear Generator Set Up Operator 09/09/23 10/02/23 documented as of this encounter
--- OUTSIDE RECORDS SUMMARY | 2024-05-12 11:24 | XMS_ITS | Encounter Summary ---
Author Organization [facility] Healthcare Address [address] [place] [address] Care Team Providers Care Pathology Secretary/Transcriptionist Name Role Phone Elsy Chance MD Primary Care Provider + [phone] Hayden Minor DC Unavailable [phone] Robby Ruiz MD Unavailable [phone] Mateo Hogan MD Unavailable [phone] Lupis Linares MD Unavailable [phone] Demarcus Cardenas MD Unavailable [phone] Enrrique Nath MD Unavailable [phone] Ed Zavala MD Unavailable [phone] Alexey Carrera MD Unavailable [phone] Encounter Details Date Type Department Care Team (Late st Contact Info) Description 04/16/2024 Results Follow-Up [facility] Medical Group [facility] [address] [place] [id number] Elsy Chance MD [address] [place] [address] Social History Tobacco Use Types Packs/Day Years Used Date Smoking Tobacco: Former Smokeless Tobacco: Never Alcohol Use Standard Drinks/Week Comments Not Currently 0 (1 standard drink = 0.6 oz pur e alcohol) [facility] Utilities Answer Date Recorded In the past [...] often do you attend chur ch or gnosticism services? Never 02/27/2024 Do you belong to any clubs o r organizations such as bahai groups, unions, fraternal or athletic groups, or [...] any time in the past 12 m [facility], were you homeless or living in a senior living (including now)? 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 Gender Identity Not on file Sexual Orientation Not on file Occupation Industry Job Start Date Job End Date retired Not on file Not on file Not on file documented as of this encounter Miscellaneous Notes * Telephone Encounter - Patricio Martin RN - 04/16/2024 11:51 AM GAS ENGINE MECHANIC Spoke to pt's et informed of below KMS result message voices understand et has no further questions @ this time ENGINE MECHANIC documented in this encounter Plan of Treatment Not on file documented as of this encounter Visit Diagnoses Not on filedocumented in this encounter Additional Health Concerns Infection Onset Date Last Indicated Resolved Time COVID: Recovered Comment:Added based on recent COVID infection. 02/25/2024 02/25/2024 COVID: Suspected 04/30/2024 04/30/2024 04/30/2024 1:45 PM CDT documented as of this encounter Care Teams Pathology Secretary/Transcriptionist Relationship Specialty Start Date End Date Elsy Chance MD PCP - General 05/10/16 Hayden Minor DC Chiropractic Medicine 09/17/16 Robby Ruiz MD [address] [place] [address] [place] [address] Consulting Physician Ophthalmology 09/17/16 Mateo Hogan MD [address] [facility] [address] [place] [address] Consulting Physician Ophthalmology 09/17/16 Lupis Linares MD [address] [facility] [address] [place] [address] Consulting Physician Pain Management 09/17/16 Demarcus Cardenas MD [address] [place] [address] [place] [address] Consulting Physician Gastroenterology 09/17/16 Enrrique Nath MD [address] [place] [address] [place] [address] Consulting Physician Rheumatology 11/05/17 [place] [id number] [address] Consulting Physician Cardiovascular Disease 11/05/17 Alexey Carrera MD [facility] [place] [address] Referring Physician Allergy and Immunology 05/12/19 documented as of this encounter
--- OUTSIDE RECORDS SUMMARY | 2024-05-12 11:24 | XMS_ITS | Clinical Summary ---
Author Organization [facility] Address [address] [place] [address] Phone Care Team Providers Care Chief Innovation Officer Name Role Phone JUAN DAVID STONE Primary Care Provider [phone] Reason for Visit and Chief Complaint ECHOCARDIOGRAM Problems Includes: Problems addressed during this encounter and other active Problems All Visits Onset Date Resolved Date Provider Condition S tatus Depressive Disorder NEC 05/08/2010 SOLD ALBINO NGUYEN M.D. Active Last Documented On 1 1:49PM ; [facility] HYPERLIPIDEMIA NEC/NOS 05/08/2010 KANDICE BADILLO M.D. Active Last Documented On 1 1:46PM ; [facility] IRRITABLE BOWEL SYNDROME 05/08/2010 KANDICE RUSH M.D. Active Last Documented On 1 1:48PM ; [facility] RHEUMATOID ARTHRITIS 05/08/2010 KADNICE NELSON M.D. Active Last Documented On 1 1:46PM ; [facility] ACUTE SINUSITIS NOS 05/25/2009 KANDICE ROBERTS M.DParvez Active Last Documented On 0 12:25PM ; [facility] Arthropathy NOS-Unspec 05/25/2009 KANDICE BADILLO M.D. Active Last Documented On 0 12:25PM ; [facility] DMII UNSPF UNCNTRLD 05/25/2009 KANDICE BLACKMON ON M.DParvez Active Last Documented On 0 12:24PM ; [facility] FIBROMATOSES NEC 05/25/2009 KANDICE NGUYEN M.D. Active Last Documented On 0 12:25PM ; [facility] HYPERTENSION NOS 05/25/2009 KANDICE NGUYEN M.D. Active Last Documented On 0 12:23PM ; [facility] Plan of Treatment No Plan of Treatment Recorded Assessments Includes: Assessments from this encounter No Assessments Recorded Medical Equipment - Implanted Devices Includes: Current Devices No Medical Equipment Recorded Medications Includes: Medications discussed during this encounter and other current Medications Current Medications (continue as prescribed) Donepezil HCl 5 MG Oral Tablet 07/21/2023 Provider: Diagnosis: Last Documented On 4 12:19PM By Melyssa RUSSELL ; [facility] Jardiance 25 MG Oral Tablet 12/25/2021 Provider: JUAN DAVID STONE Diagnosis: Last Documented On 2 2:09PM By Maria C CONNOR ; [facility] Labetalol HCl 200 MG Oral Tablet 12/25/2021 Provider : JUAN DAVID STONE Diagnosis: Last Documented On 2 2:09PM By Maria C CONNOR ; [facility] metFORMIN HCl 500 MG Oral Tablet 12/25/2021 Provider : JUAN DAVID STONE Diagnosis: Last Documented On 2 2:09PM By Maria C CONNOR ; [facility] Rosuvastatin Calcium 10 MG Oral Tablet 12/25/2021 Pr ovider: JUAN DAVID STONE Diagnosis: Last Documented On 2 2:09PM By Maria C CONNOR ; [facility] Rybelsus 14 MG Oral Tablet 12/25/2021 Provider: Monty STONE Diagnosis: Last Documented On 2 2:09PM By Maria C CONNOR ; [facility] Hydroxychloroquine Sulfate 200 MG Oral Tablet 12/26/19 Provider: Diagnosis: Last Documented On 2 2:09PM By Maria C CONNOR ; [facility] Famotidine 20 MG Oral Tablet 12/25/2021 Provider: JUAN DAVID STONE Diagnosis: Last Documented On 2 2:09PM By Maria C CONNOR ; [facility] DULoxetine HCl 60 MG Oral Capsule Delayed Releas e Particles 12/25/2021 Provider: Diagnosis: Last Documented On 2 2:09PM By Maria C CONNOR ; [facility] buPROPion HCl ER (XL) 150 MG Oral Tablet Extended Release 24 Hour 12/25/2021 Provider: JUAN DAVID MCGARRY LL Diagnosis: Last Documented On 2 2:09PM By Maria C CONNOR ; [facility] Medications Administered Includes: Administered Medications from this encounter No Administered Medications Recorded Results Includes: Results discussed during this encounter No Results Recorded For Specified Dates History of Present Illness Includes: History of Present Illness from this encounter No History of Present Illness Recorded Social History No Social History Recorded - Smoking Status Unknown Medical History Includes: Medical History addressed during this encounter No Medical History Recorded Family History Includes: Family History addressed during this encounter No Family History Recorded Review of Systems Includes: Review of Systems from this encounter No Review of Systems Recorded Mental Status Includes: Mental Status from this encounter No Mental Status Recorded Functional Status Includes: Functional Status from this encounter No Functional Status Recorded Physical Exam Includes: Physical Exam from this encounter No Physical Exam Recorded Allergies Includes: Active Allergies Substance Type Reaction Onset Date Resolved Date Statu s Keflex Allergy 05/25/2009 Active Last Documented On 4 12:19PM ; [facility] Iodine Allergy 05/25/2009 Active Last Documented On 4 12:19PM ; [facility] Codeine Allergy 05/25/2009 Active Last Documented On 4 12:19PM ; [facility] Biaxin Allergy 05/25/2009 Active Last Documented On 4 12:19PM ; [facility] Encounters Encounter Provider Location Date Check-In Time Check-Out Time Diagnosis ECHOCARDIOGRAM AYE BAKER MD [facility]- 09/19/19 23 2:19PM 3:15PM Insurance Includes: Active Insurance Policies Plan Name Member ID Group # Subscriber Relationship Effect edgar Dates 1 - [employer] [id number] BRIANA ROSSI Self Clinical Notes Includes: Clinical Notes from this encounter No Clinical Notes Recorded
--- OUTSIDE RECORDS SUMMARY | 2024-05-12 11:24 | XMS_ITS | Encounter Summary ---
Author Organization [facility] Address 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
--- OUTSIDE RECORDS SUMMARY | 2024-05-12 11:24 | XMS_ITS | Encounter Summary ---
Author Organization [facility] Healthcare Address [address] [place] [address] Care Team Providers Care Principal Administrative Clerk Name Role Phone Elsy Chance MD Primary Care Provider +- [phone] Hayden Minor DC Unavailable [phone] Robby Ruiz MD Unavailable [phone] Mateo Hogan MD Unavailable [phone] Lupis Linares MD Unavailable [phone] Demarcus Cardenas MD Unavailable [phone] Enrrique Nath MD Unavailable [phone] Ed Zavala MD Unavailable [phone] Alexey Carrera MD Unavailable [phone] Encounter Details Date Type Department Care Team (Late st Contact Info) Description 05/10/2024 Orders Only [facility] [place] [facility] [address] [place] [address] Elsy Chance MD [address] [place] [address] Social History Tobacco Use Types Packs/Day Years Used Date Smoking Tobacco: Former Smokeless Tobacco: Never Alcohol Use Standard Drinks/Week Comments Not Currently 0 (1 standard drink = 0.6 oz pur e alcohol) [facility] Utilities Answer Date Recorded In the [...] any clubs o r organizations such as voodoo groups, unions, fraternal or athletic groups, or [...] any time in the past 12 m onths, were you homeless or living in a [...] on file 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 Gender Identity Not on file Sexual Orientation Not on file Occupation Industry Job Start Date Job End Date retired Not on file Not on file Not on file documented as of this encounter Plan of Treatment Not on file documented as of this encounter Procedures Procedure Name Priority Date/Time Associated Diagnosis Comments SCAN - RADIOLOGY/IMAGING 05/10/2024 SCAN - LABS 05/10/2024 documented in this encounter Results * SCAN - LABS (05/10/2024) us Provider Scanning Final Result * SCAN - RADIOLOGY/IMAGING (05/10/2024) Anatomical Region Laterality Modality Other us Elsy Chance MD Final Resu lt documented in this encounter Visit Diagnoses Not on filedocumented in this encounter Additional Health Concerns Infection Onset Date Last Indicated Resolved Time COVID: Recovered Comment:Added based on recent COVID infection. 02/25/2024 02/25/2024 documented as of this encounter Care Teams Principal Administrative Clerk Relationship Specialty Start Date End Date Elsy Chance MD PCP - General 05/10/16 Hayden Minor DC Chiropractic Medicine 09/17/16 Robby Ruiz MD [address] [place] [address] [place] [address] Consulting Physician Ophthalmology 09/17/16 Mateo Hogan MD [address] [facility] [address] [place] [address] Consulting Physician Ophthalmology 09/17/16 Lupis Linares MD [address] [facility] [address] [place] [address] Consulting Physician Pain Management 09/17/16 Demarcus Cardenas MD [address] [place] [address] [address] [place] [address] Consulting Physician Gastroenterology 09/17/16 Enrrique Nath MD [address] [place] [address] [place] [address] Consulting Physician Rheumatology 11/05/17 Ed Z[place] [id number] [place] [address] Consulting Physician Cardiovascular Disease 11/05/17 Alexey Carrera MD [facility] [place] [address] Referring Physician Allergy and Immunology 05/12/19 documented as of this encounter
--- OUTSIDE RECORDS SUMMARY | 2024-05-12 11:24 | XMS_ITS | Clinical Summary ---
Author Organization [facility] Address [address] [place] [address] Care Team Providers Care Security Inspector Name Role Phone Unavailable Primary Care Provider Unavailabl e Source Comments [facility],non-owned Affiliates and Associated Physician Practices is amultiple site organization consisting of ambulatory clinics and hospital sitesin [place], [place], [place] and [place]. This disclosure is being madepursuant to the Care Everywhere program and may not contain all information available regarding this patient. Last updated 17.[facility] [employer] Social History Tobacco Use Types Packs/Day Years Used Date Smoking Tobacco: Never Assessed Sex and Gender Information Value Date Recorded Sex Assigned at Not on file Gender Identity Not on file Sexual Orientation Not on file Plan of Treatment Health Maintenance Due Date Last Done Comments BONE DENSITY TESTING 1936 DTAP/TDAP/TD VACCINES (1 - Tdap) 10/15/1955 PNEUMOCOCCAL VACCINE 50+ (1 of 1 - PCV) 1986 ZOSTER VACCINE (1 of 2) 1986 Respiratory Syncytial Virus (RSV) Vaccine Pt: or over 60 yrs (1 - 1-dose 75+ series) 10/15/2011 COVID-19 VACCINE (2023-2 5 season) 2023 INFLUENZA VACCINE (#1) 2023 DEPRESSION SCREENING 02/11/2024 MEDICARE AWV CALENDAR YEAR 2024 HEPATITIS B VACCINE Aged Out No longe r eligible based on patient's age to complete this topic HIB VACCINE Aged Out No longer eligi ble based on patient's age to complete this topic HPV VACCINE Aged Out No longer eligi ble based on patient's age to complete this topic MENINGOCOCCAL (Group B) VACC INE SHARED DECISION-MAKING Aged Out No longer eligibl e based on patient's age to complete this topic MENINGOCOCCAL GROUPS A/C/Y/W VACCINE Aged Out No longer eligible b ased on patient's age to complete this topic
--- OUTSIDE RECORDS SUMMARY | 2024-05-12 11:25 | XMS_ITS | Encounter Summary ---
Author Organization [facility] Address [address] [place] [address] Care Team Providers Care Public Health Clinical Nurse Specialist Name Role Phone Elsy Chance MD Primary Care Provider + [phone] Hayden Minor DC Unavailable [phone] Robby Ruiz MD Unavailable [phone] Mateo Hogan MD Unavailable +[phone] Lupis Linares MD Unavailable [phone] Demarcus Cardenas MD Unavailable +[phone] Enrrique Nath MD Unavailable [phone] Ed Zavala MD Unavailable [phone] Alexey Carrera MD Unavailable +[phone] Encounter Details Date Type Department Care Team (Late st Contact Info) Description 11/25/2022 7:48 AM CDT Hospital Encounter [facility] Orthopedics and Sports Medicine [address] [place] [address] [address] [address] Social History Tobacco Use Types Packs/Day Years Used Date Smoking Tobacco: Former Smokeless Tobacco: Never Alcohol Use Standard Drinks/Week Comments Not Currently 0 (1 standard drink = 0.6 oz pur e alcohol) [facility] Utilities Answer Date Recorded In the past [...] often do you attend chur ch or jewish services? Never 02/27/2024 Do you belong to any clubs o r organizations such as jew groups, unions, fraternal or athletic groups, or [...] any time in the past 12 m [facility], were you homeless or living in a long-term (including now)? No 02/27/2024 Personal Safety Answer [...] on file Legal Sex Female 10:51 AM GM MOBILE Gender Identity Not on file Sexual Orientation Not on file Occupation Industry Job Start Date Job End Date retired Not on file Not on file Not on file documented as of this encounter Plan of Treatment Not on file documented as of this encounter Procedures Procedure Name Priority Date/Time Associated Diagnosis Comments XR SHOULDER RIGHT 2 OR MORE VIEWS Routine 11/25/2022 10:53 AM CDT Other closed fracture of shaft of right humerus with routine healing, subsequent encounter documented in this encounter Results * XR Shoulder Right 2 or More Views (11/25/2022 10:53 AM CDT) Anatomical Region Laterality Modality Upper Extremities, Shoulder Right Digi jesus Radiography Narrative 11/25/2022 11:13 AM CDT Four views right shoulder shows increased callus at fracture site reverse total shoulder arthroplasty components unchanged position us Sachin Mitchell MD IMG XR PROCEDURES Final Resu lt documented in this encounter Visit Diagnoses Not on filedocumented in this encounter Additional Health Concerns Infection Onset Date Last Indicated Resolved Time COVID: Suspected 01/31/2024 01/31/2024 01/31/2024 7:16 PM GM MOBILE COVID19 01/31/2024 01/31/2024 02/10/2024 3:05 AM GM MOBILE COVID: Recovered Comment:Added based on recent COVID infection. 02/10/2024 02/12/202402/25/2024 7:[address] COVID19 02/24/2024 02/24/2024 02/25/2024 7:16 AM GM MOBILE COVID: Recovered Comment:Added based on recent COVID infection. 02/25/2024 02/25/2024 COVID19 03/02/2024 03/02/2024 03/12/2024 3:07 AM GM MOBILE COVID: Suspected 04/30/2024 04/30/2024 04/30/2024 1:45 PM CDT documented as of this encounter Care Teams Public Health Clinical Nurse Specialist Relationship Specialty Start Date End Date Elsy Chance MD PCP - General 05/10/16 Hayden Minor DC Chiropractic Medicine 09/17/16 Robby Ruiz MD [address] [place] [address] [place] [address] Consulting Physician Ophthalmology 09/17/16 Mateo Hogan MD [address] [address] Consulting Physician Ophthalmology 09/17/16 Lupis Linares MD [address] [facility] [address] [place] [address] Consulting Physician Pain Management 09/17/16 Demarcus Cardenas MD [address] [place] [address] [place] [address] Consulting Physician Gastroenterology 09/17/16 Enrrique Nath MD [address] [place] [address] [place] [address] Consulting Physician Rheumatology 11/05/17 [place] [address] [address] Consulting Physician Cardiovascular Disease 11/05/17 Alexey Carrera MD [employer] [place] [address] Referring Physician Allergy and Immunology 05/12/19 documented as of this encounter
--- OUTSIDE RECORDS SUMMARY | 2024-05-12 11:25 | XMS_ITS | Encounter Summary ---
Author Organization [facility] Address [address] [place] [address] Phone Care Team Providers Care Technical Specialist Cytology Name Role Phone Elsy Chance MD Primary Care Provider Hayden Minor DC Unavailable +[phone] Robby Ruiz MD Unavailable [phone] Mateo Hogan MD Unavailable [phone] Lupis Linares MD Unavailable +[phone] Demarcus Cardenas MD Unavailable +[phone] Enrrique Nath MD Unavailable [phone] Ed Zavala MD Unavailable [phone] Alexey Carrera MD Unavailable +[phone] Tejal MeyerW Unavailable [phone] Encounter Details Date Type Department Care Team (Late st Contact Info) Description 09/07/2019 Orders Only [facility] [address] [place] [address] Scanning, Provider Social History Tobacco Use Types Packs/Day Years Used Date Smoking Tobacco: Former Smokeless Tobacco: Never Alcohol Use Standard Drinks/Week Comments Not Currently 0 (1 standard drink = 0.6 oz pur e alcohol) PHQ-2 Answer Date Recorded PHQ-2 Score 3 05/12/2019 Comments No Sex and Gender Information Value Date Recorded Sex Assigned at Not on file Legal Sex Female 10:51 AM HARP REPAIRER Gender Identity Not on file Sexual Orientation Not on file Occupation Industry Job Start Date Job End Date retired Not on file Not on file Not on file documented as of this encounter Plan of Treatment Not on file documented as of this encounter Procedures Procedure Name Priority Date/Time Associated Diagnosis Comments SCAN - LABS 09/07/2019 documented in this encounter Results * SCAN - LABS (09/07/2019) us Provider Scanning Final Result documented in this encounter Visit Diagnoses Not on filedocumented in this encounter Additional Health Concerns Infection Onset Date Last Indicated Resolved Time COVID: Suspected 12/17/2019 12/17/2019 12/18/2019 12:00 PM HARP REPAIRER Respiratory Infection (SANDEE), contact + droplet Comment:Automatically added due to negative COVID-19 result. 12/18/2019 12/18/2019 01/01/2020 3:0 7 AM HARP REPAIRER COVID: Suspected 05/31/2021 05/31/2021 05/31/2021 3:16 PM CDT COVID: Suspected 08/17/2021 08/17/2021 08/17/2021 10:11 AM CDT COVID: Suspected 08/28/2021 08/28/2021 08/28/2021 1:39 PM CDT COVID: Suspected 07/13/2022 07/13/2022 07/13/2022 4:36 PM CDT COVID: Suspected 01/31/2024 01/31/2024 01/31/2024 7:16 PM HARP REPAIRER COVID19 01/31/2024 01/31/2024 02/10/2024 3:05 AM HARP REPAIRER COVID: Recovered Comment:Added based on recent COVID infection. 02/10/2024 02/12/2024 02/25/2024 7:[address] COVID19 02/24/2024 02/24/2024 02/25/2024 7:16 AM HARP REPAIRER COVID: Recovered Comment:Added based on recent COVID infection. 02/25/2024 02/25/2024 COVID19 03/02/2024 03/02/2024 03/12/2024 3:07 AM HARP REPAIRER COVID: Suspected 04/30/2024 04/30/2024 04/30/2024 1:45 PM CDT documented as of this encounter Care Teams Technical Specialist Cytology Relationship Specialty Start Date End Date Elsy Chance MD PCP - General 05/10/16 Hayden Minor DC Chiropractic Medicine 09/17/16 Robby Ruiz MD [address] [place] [address] [place] [address] Consulting Physician Ophthalmology 09/17/16 Mateo Hogan MD [address] [address] Consulting Physician Ophthalmology 09/17/16 Lupis Linares MD [address] [facility] [address] [place] [address] Consulting Physician Pain Management 09/17/16 Demarcus Cardenas MD [address] [place] [address] [place] [address] Consulting Physician Gastroenterology 09/17/16 Enrrique Nath MD [address] [place] [address] [place] [address] Consulting Physician Rheumatology 11/05/17 [place] [address] [address] [place] [address] Consulting Physician Cardiovascular Disease 11/05/17 Alexey Carrera MD [employer] [address] Referring Physician Allergy and Immunology 05/12/19 Tejal Meyer, [address] [place] [address] Tailor Helper Oceanography Teacher 09/09/23 10/02/23 documented as of this encounter
--- OUTSIDE RECORDS SUMMARY | 2024-05-12 11:25 | XMS_ITS | Encounter Summary ---
Author Organization [facility] Address [address] [place] [address] Care Team Providers Care Saw Sharpener Name Role Phone Elsy Chance MD Primary Care Provider [phone] Hayden Minor DC Unavailable [phone] Robby Ruiz MD Unavailable [phone] Mateo Hogan MD Unavailable [phone] Lupis Linares MD Unavailable [phone] Demarcus Cardenas MD Unavailable [phone] Enrrique Nath MD Unavailable [phone] Ed Zavala MD Unavailable [phone] Alexey Carrera MD Unavailable [phone] Tejal Meyer LCSW Unavailable [phone] Encounter Details Date Type Department Care Team (Late st Contact Info) Description 09/25/2023 Orders Only [facility] [address] [place] [id number] Scanning, Provider Social History Tobacco Use Types Packs/Day Years Used Date Smoking Tobacco: Former Smokeless Tobacco: Never Alcohol Use Standard Drinks/Week Comments Not Currently 0 (1 standard drink = 0.6 oz pur e alcohol) [facility] Utilities Answer Date Recorded In the past 12 months has th e electric, gas, oil, or water company threatened to shut off services in your home? No 09/09/2023 Social Connection and Isolat ion Panel [NHANES] Answer Date Recorded In a typical week, how many times do you talk on the phone with family, friends, or neighbors? More than three times a week 09/09/2023 How often do you get togethe r with friends or relatives? Twice a week 09/09/2023 Attends Quaker Services Not on file 09/08 Do you belong to any clubs o r organizations such as gnosticism groups, unions, fraternal or athletic groups, or school groups? No 09/09/2023 How often do you attend meet ings of the clubs or organizations you belong to? Never 09/09/2023 Are you , , di vorced, , never , or living with a partner? 09/09/2023 Overall Financial Resource Strain (CARDIA) Answe r Date Recorded How hard is it for you to pa y for the very basics like food, housing, medical care, and heating? Not hard at all 09/09/2023 PHQ-2 Answer Date Recorded PHQ-2 Total Score (If total score is 3 or more points, staff should administer the PHQ-9) 4 09/08/2023 Hunger Vital Sign Answer Date Recorded Within the past 12 months, y ou worried that your food would run out before you got the money to buy more. Never true 09/09/19 24 Within the past 12 months, t he food you bought just didn't last and you didn't have money to get more. Never true 09/09/2023 PRAPARE - Transportation Answer Date Re corded In the past 12 months, has l ack of transportation kept you from medical appointments or from getting medications? Yes 08/12 In the past 12 months, has l ack of transportation kept you from meetings, work, or from getting things needed for daily living? No 09/09/2023 PHQ-9 Answer Date Recorded PHQ-9 Total Score 14 09/08/2023 Housing Stability Vital Sign Answer [place] Recorded In the last 12 months, was t here a time when you were not able to pay the mortgage or rent on time? No 09/09/2023 In the past 12 months, how m any times have you moved where you were living? 1 09/09/2023 At any time in the past 12 m [facility], were you homeless or living in a [facility] (including now)? No 09/09/2023 Personal Safety Answer Date Recorded Have you ever been in or are you currently in a harmful physical or emotional relationship or is someone making you feel afraid or unsafe? Denies 01/13/2023 Comments No Sex and Gender Information Value Date Recorded Sex Assigned at Not on file Legal Sex Female 10:51 AM NUCLEAR MONITORING TECHNICIAN Gender Identity Not on file Sexual Orientation Not on file Occupation Industry Job Start Date Job End Date retired Not on file Not on file Not on file documented as of this encounter Plan of Treatment Not on file documented as of this encounter Procedures Procedure Name Priority Date/Time Associated Diagnosis Comments SCAN - RADIOLOGY/IMAGING 09/25/2023 documented in this encounter Results * SCAN - RADIOLOGY/IMAGING (09/25/2023) Anatomical Region Laterality Modality Other us Provider Scanning Final Result documented in this encounter Visit Diagnoses Not on filedocumented in this encounter Additional Health Concerns Infection Onset Date Last Indicated Resolved Time COVID: Suspected 01/31/2024 01/31/2024 01/31/2024 7:16 PM NUCLEAR MONITORING TECHNICIAN COVID19 01/31/2024 01/31/2024 02/10/2024 3:05 AM NUCLEAR MONITORING TECHNICIAN COVID: Recovered Comment:Added based on recent COVID infection. 02/10/2024 02/12/2024 02/25/2024 7:[address] COVID19 02/24/2024 02/24/2024 02/25/2024 7:16 AM NUCLEAR MONITORING TECHNICIAN COVID: Recovered Comment:Added based on recent COVID infection. 02/25/2024 02/25/2024 COVID19 03/02/2024 03/02/2024 03/12/2024 3:07 AM NUCLEAR MONITORING TECHNICIAN COVID: Suspected 04/30/2024 04/30/2024 04/30/2024 1:45 PM CDT documented as of this encounter Care Teams Saw Sharpener Relationship Specialty Start Date End Date Elsy Chance MD PCP - General 05/10/16 Hayden Minor DC Chiropractic Medicine 09/17/16 Robby Ruiz MD [address] [place] [address] [place] [address] Consulting Physician Ophthalmology 09/17/16 Mateo Hogan MD [address] [facility] [address] [place] [address] Consulting Physician Ophthalmology 09/17/16 Lupis Linares MD [address] [facility] [address] [place] [address] Consulting Physician Pain Management 09/17/16 Demarcus Cardenas MD [address] [place] [address] [place] [address] Consulting Physician Gastroenterology 09/17/16 Enrrique Nath MD [address] [place] [address] [place] [address] Consulting Physician Rheumatology 11/05/17 [place] [address] [address] Consulting Physician Cardiovascular Disease 11/05/17 Alexey Carrera MD [address] [place] [address] [place] [address] Referring Physician Allergy and Immunology 05/12/19 Tejal Meyer, [address] [place] [address] High School Art Teacher Finished Garment Inspector 09/09/23 10/02/23 documented as of this encounter
--- OUTSIDE RECORDS SUMMARY | 2024-05-12 11:25 | XMS_ITS | Encounter Summary ---
Author Organization [facility] Address [address] [place] [address] Care Team Providers Care Control Clerk Auditing Name Role Phone Elsy Chance MD Primary Care Provider + [phone] Hayden Minor DC Unavailable [phone] Robby Ruiz MD Unavailable [phone] Mateo Hogan MD Unavailable [phone] Lupis Linares MD Unavailable [phone] Demarcus Cardenas MD Unavailable [phone] Enrrique Nath MD Unavailable [phone] Ed Zavala MD Unavailable [phone] Alexey Carrera MD Unavailable [phone] Tejal MeyerW Unavailable [phone] Reason for Visit * Reason Onset Date Comments Scheduling Appointments 07/27/2019 Called f or DEXA appointment reminder Encounter Details Date Type Department Care Team (Late st Contact Info) Description 07/27/[address] [address] [address] Scheduling Appointments (Called for DEXA appointment reminder) Social History Tobacco Use Types Packs/Day Years Used Date Smoking Tobacco: Former Smokeless Tobacco: Never Alcohol Use Standard Drinks/Week Comments Not Currently 0 (1 standard drink = 0.6 oz pur e alcohol) PHQ-2 Answer Date Recorded PHQ-2 Score 3 05/12/2019 Comments No Sex and Gender Information Value Date Recorded Sex Assigned at Not on file Legal Sex Female 10:51 AM CASE WORKER Gender Identity Not on file Sexual Orientation [...] COVID: Suspected 12/17/2019 12/17/2019 12/18/2019 12:00 PM CASE WORKER Respiratory Infection (SANDEE), contact + droplet Comment:Automatically added due to negative COVID-19 result. 12/18/2019 12/18/2019 01/01/2020 3:0 7 AM CASE WORKER COVID: Suspected 05/31/2021 05/31/2021 05/31/2021 3:16 PM CDT COVID: Suspected 08/17/2021 08/17/2021 08/17/2021 10:11 AM CDT COVID: Suspected 08/28/2021 08/28/2021 08/28/2021 1:39 PM CDT COVID: Suspected 07/13/2022 07/13/2022 07/13/2022 4:36 PM CDT COVID: Suspected 01/31/2024 01/31/2024 01/31/2024 7:16 PM CASE WORKER COVID19 01/31/2024 01/31/2024 02/10/2024 3:05 AM CASE WORKER COVID: Recovered Comment:Added based on recent COVID infection. 02/10/2024 02/12/2024 02/25/2024 7:[address] COVID19 02/24/2024 02/24/2024 02/25/2024 7:16 AM CASE WORKER COVID: Recovered Comment:Added based on recent COVID infection. 02/25/2024 02/25/2024 COVID19 03/02/2024 03/02/2024 03/12/2024 3:07 AM CASE WORKER COVID: Suspected 04/30/2024 04/30/2024 04/30/2024 1:45 PM CDT documented as of this encounter Care Teams Control Clerk Auditing Relationship Specialty Start Date End Date Elsy Chance MD PCP - General 05/10/16 Hayden Minor DC Chiropractic Medicine 09/17/16 Robby Ruiz MD [address] [place] [address] [place] [address] Consulting Physician Ophthalmology 09/17/16 Mateo Hogan MD [address] [facility] [address] [place] [address] Consulting Physician Ophthalmology 09/17/16 Lupis Linares MD [address] [facility] [address] [place] [address] Consulting Physician Pain Management 09/17/16 Demarcus Cardenas MD [address] [facility] [address] [place] [address] Consulting Physician Gastroenterology 09/17/16 Enrrique Nath MD [address] [place] [address] [address] [place] [address] Consulting Physician Rheumatology 11/05/17 [place] [address] [facility] [address] [place] [address] Consulting Physician Cardiovascular Disease 11/05/17 Alexey Carrera MD [address] [place] [address] [place] [address] Referring Physician Allergy and Immunology 05/12/19 Tejal Meyer, [address] [place] [id number] Video Recorder Mechanic Pharmacy Account Director 09/09/23 10/02/23 documented as of this encounter
--- OUTSIDE RECORDS SUMMARY | 2024-05-12 11:25 | XMS_ITS | Clinical Summary ---
Author Organization [facility] Address [address] [place] [address] Phone Care Team Providers Care Roller Mill Operator Name Role Phone JUAN DAVID STONE Primary Care Provider [phone] Reason for Visit and Chief Complaint The Chief Complaint is: Congested cough and nasal congestion since last friday Problems Includes: Problems addressed during this encounter and other active Problems All Visits Onset Date Resolved Date Provider Condition S tatus Depressive Disorder NEC 05/08/2010 SUKUMAR NGUYEN M.D. Active Last Documented On 1 1:49PM ; [facility] HYPERLIPIDEMIA NEC/NOS 05/08/2010 KANDICE BADILLO M.D. Active Last Documented On 1 1:46PM ; [facility] IRRITABLE BOWEL SYNDROME 05/08/2010 KANDICE RUSH M.D. Active Last Documented On 1 1:48PM ; [facility] RHEUMATOID ARTHRITIS 05/08/2010 KANDICE NELSON M.D. Active Last Documented On 1 1:46PM ; [facility] ACUTE SINUSITIS NOS 05/25/2009 KANDICE ROBERTS M.DParvez Active Last Documented On 0 12:25PM ; [facility] Arthropathy NOS-Unspec 05/25/2009 KANDICE BADILLO M.D. Active Last Documented On 0 12:25PM ; [facility] DMII UNSPF UNCNTRLD 05/25/2009 KANDICE ROBERTS M.DParvez Active Last Documented On 0 12:24PM ; [facility] FIBROMATOSES NEC 05/25/2009 KANDICE NGUYEN M.D. Active Last Documented On 0 12:25PM ; [facility] HYPERTENSION NOS 05/25/2009 KANDICE NGUYEN M.D. Active Last Documented On 0 12:23PM ; [facility] Plan of Treatment - The options include close observation - Last Documented On 07/14/2023 3:08PM ; [facility] - Continue current medication - Last Documented On 07/14/2023 3:08PM ; [facility] Rapid COVID testing performed today and was negative. Call with development of additional or worsening symptoms. Go to ED with severe respiratory symptoms. - Last Documented On 07/14/2023 3:08PM ; [facility] Assessments Includes: Assessments from this encounter Findings - Cough [Cough] - Last Documented On 07/14/2023 3:08PM ; [facility] Medical Equipment - Implanted Devices Includes: Current Devices No Medical Equipment Recorded Medications Includes: Medications discussed during this encounter and other current Medications New / Renewed during this visit JERALD CONNOR on 07/14/2023 Doxycycline Hyclate 100 MG Oral Capsule Provider: JERALD Domingo 10 day supply: 20 capsule, 0 refills Diagnosis: Acute cough One tablet twice a day Pharmacy: [address], [id number] - Last Documented On 07/14/2023 3:11PM By Jerald MELARA ; [facility] Current Medications (continue as prescribed) Donepezil HCl 5 MG Oral Tablet 07/21/2023 Provider: Diagnosis: Last Documented On 4 12:19PM By Melyssa RUSSELL ; [facility] Jardiance 25 MG Oral Tablet 12/25/2021 Provider: JUAN DAVID STONE Diagnosis: Last Documented On 2 2:09PM By Maria C CONNOR ; [facility] Labetalol HCl 200 MG Oral Tablet 12/25/2021 Provider : JUAN DAVID STONE Diagnosis: Last Documented On 2 2:09PM By Maria C CONNOR ; [facility] metFORMIN HCl 500 MG Oral Tablet 12/25/2021 Provider : JUAN DAVID STONE Diagnosis: Last Documented On 2 2:09PM By Maria C CONNOR ; [facility] Rosuvastatin Calcium 10 MG Oral Tablet 12/25/2021 Pr ovider: JUAN DAVID STONE Diagnosis: Last Documented On 2 2:09PM By Maria C CONNOR ; [facility] Rybelsus 14 MG Oral Tablet 12/25/2021 Provider: Monty STONE Diagnosis: Last Documented On 2 2:09PM By Maria C CONNOR ; [facility] Hydroxychloroquine Sulfate 200 MG Oral Tablet 12/26/19 Provider: Diagnosis: Last Documented On 2 2:09PM By Maria C CONNOR ; [facility] Famotidine 20 MG Oral Tablet 12/25/2021 Provider: JUAN DAVID STONE Diagnosis: Last Documented On 2 2:09PM By Maria C CONNOR ; [facility] DULoxetine HCl 60 MG Oral Capsule Delayed Releas e Particles 12/25/2021 Provider: Diagnosis: Last Documented On 2 2:09PM By Maria C CONNOR ; [facility] buPROPion HCl ER (XL) 150 MG Oral Tablet Extended Release 24 Hour 12/25/2021 Provider: JUAN DAVID MCGARRY Diagnosis: Last Documented On 2 2:09PM By Maria C CONNOR ; [facility] Past Medications on file Benzonatate 200 MG Oral Capsule 07/21/2023 - 07/31/2023 Provider: ABA CRUZ RN-COKE LOADER Diagnosis: Acute cough Take 1 tablet three times per day as needed Last Documented On 4 12:50PM By Aba Miller APRN, CNP ; [facility] Medications Administered Includes: Administered Medications from this encounter No Administered Medications Recorded Vital Signs Includes: Vital Signs from this encounter Vital Name 07/14/2023 02:46P Pulse Rate-Sitting (bpm) 72 Respiration Rate (breaths/min) 20 Temp-Oral (F) 98.9 Weight (lb) 149 Oxygen Saturation (%) 94 Last Documented: On 07/14/2023 2:46PM ; [facility] Results Includes: Results discussed during this encounter SARS COVID-19 FLU A & B [facility] Ordered by JERALD CONNOR on 04/2023 Collected: Reported: 07/14/2023 15:04 Last Documented On 4 3:08PM ; [facility] Reviewed by JERALD CONNOR on 07/14/2023; All test results are final unless otherwise noted. COVID neg N (Normal) Last Documented On 4 3:03PM ; [facility] INFLUENZA A neg (Negative) N (Normal) Last Documented On 4 3:03PM ; [facility] INFLUENZA B neg (negative) N (Normal) Last Documented On 4 3:03PM ; [facility] INT. QC ACCEPTABLE? y N (Normal) Last Documented On 4 3:03PM ; [facility] LOT # & EXP. DATE [id number] 01/29/24 N (Normal) Last Documented On 4 3:03PM ; [facility] History of Present Illness Includes: History of Present Illness from this encounter HPI BRIANA ROSSI is an 87 year old female. - Allergy list reviewed - Medication list reviewed - Feeling tired - Not feeling poorly (malaise) - No fever - No chills - No headache - No sinus pain - No swollen glands in the neck - Nasal passage blockage (stuffiness) - No ear symptoms - No earache - No nasal discharge - No postnasal drip - No sneezing - No sore throat - No chest pain or discomfort - Feeling congested in the chest - Cough - Coughing up sputum - No shortness of breath - No wheezing - Normal appetite - No nausea - No vomiting - No abdominal pain - No diarrhea - No myalgia - No anosmia - No taste disturbances - Not unpleasantly altered - No skin symptoms Briana is an 87-year-old female patient that presented to the walk-in clinic with her son for cough and nasal congestion that started 6 days ago. She has been taking OTC medication without relief. She denies any fever, weakness or body aches. Social History Description Last Updated No tobacco use 07/14/2023 Last Documented On 4 3:08PM ; [facility] Smoking Status Unknown Procedures and Surgical History Includes: Procedures from this encounter Procedures Code Diagnosis Performing Provider Service L ocation Service Date SARS-CO,SARS-COV-2, INFLUENZA A/B TEST (CLIA WAIVED) 81789 Acute cough JERALD PORTILLO DIRECTOR ONCOLOGY-C [facility] 07/14/2023 Last Documented On 4 11:16AM ; [facility] the options include antihistamines as ne eded per product instructions Last Documented On 4 3:04PM ; [facility] Pt to use OTC fever/pain product as need ed per product instruction.~ Last Documented On 4 3:04PM ; [facility] Pt to use OTC expectorant product as nee ded per product instruction.~ Last Documented On 4 3:04PM ; [facility] Pt to use OTC cough product as needed pe r product instruction.~ Last Documented On 4 3:04PM ; [facility] plan of care reviewed and agreed to Last Documented On 4 3:04PM ; [facility] patient to call if symptoms worsen or not improved to update patient's status as needed Last Documented On 4 3:04PM ; [facility] review of medications documented 1160F Last Documented On 4 2:45PM ; [facility] Medical History Includes: Medical History addressed during this encounter Description Last Updated Taking OTC medications 07/14/2023 Last Documented On 4 3:08PM ; [facility] No exposure to a contagious disease 04/2023 Last Documented On 4 3:08PM ; [facility] Family History Includes: Family History addressed during this encounter No Family History Recorded Review of Systems Includes: Review of Systems from this encounter Systemic: No fever and no chills. Head: No headache and no sinus pressure. Otolaryngeal: No earache. Nasal discharge. No sore throat. Cardiovascular: No chest pain or discomfort. Pulmonary: Cough. No wheezing. Gastrointestinal: No vomiting, no abdominal pain, and no diarrhea. Musculoskeletal: No muscle aches. Skin: No skin lesions. Mental Status Includes: Mental Status from this encounter No Mental Status Recorded Functional Status Includes: Functional Status from this encounter No Functional Status Recorded Physical Exam Includes: Physical Exam from this encounter Allergies Includes: Active Allergies Substance Type Reaction Onset Date Resolved Date Statu s Keflex Allergy 05/25/2009 Active Last Documented On 4 12:19PM ; [facility] Iodine Allergy 05/25/2009 Active Last Documented On 4 12:19PM ; [facility] Codeine Allergy 05/25/2009 Active Last Documented On 4 12:19PM ; [facility] Biaxin Allergy 05/25/2009 Active Last Documented On 4 12:19PM ; [facility] Encounters Encounter Provider Location Date Check-In Time Check-Out Time Diagnosis COVID SICK VISIT- ESTABLISHED PATIENT JERALD CONNOR [facility] 07/14/19 24 2:31PM 3:02PM Cough Insurance Includes: Active Insurance Policies Plan Name Member ID Group # Subscriber Relationship Effect edgar Dates - [employer] [id number] BRIANA ROSSI Self Clinical Notes Includes: Clinical Notes from this encounter * Progress note Date Encounter Last Documented by 07/14/2023 COVID SICK VISIT- ESTABLISHED PA TIENT Last documented on 07/14/2023; 3:08 PM, JERALD CONNOR; [facility] Chief Complaint The Chief Complaint is: Congested cough and nasal congestion since last friday. History of Present Illness BRIANA ROSSI is an 87 year old female. - Allergy list reviewed - Medication list reviewed - Feeling tired - Not feeling poorly (malaise) - No fever - No chills - No headache - No sinus pain - No swollen glands in the neck - Nasal passage blockage (stuffiness) - No ear symptoms - No earache - No nasal discharge - No postnasal drip - No sneezing - No sore throat - No chest pain or discomfort - Feeling congested in the chest - Cough - Coughing up sputum - No shortness of breath - No wheezing - Normal appetite - No nausea - No vomiting - No abdominal pain - No diarrhea - No myalgia - No anosmia - No taste disturbances - Not unpleasantly altered - No skin symptoms Briana is an 87-year-old female patient that presented to the walk-in clinic with her son for cough and nasal congestion that started 6 days ago. She has been taking OTC medication without relief. She denies any fever, weakness or body aches. Current Medication - buPROPion HCl ER (XL) 150 MG Oral Tablet Extended Release 24 Hour 30 days, 0 refills - DULoxetine HCl 60 MG Oral Capsule Delayed Release Particles 30 days, 0 refills - Famotidine 20 MG Oral Tablet 30 days, 0 refills - Hydroxychloroquine Sulfate 200 MG Oral Tablet 30 days, 0 refills - Jardiance 25 MG Oral Tablet 30 days, 0 refills - Labetalol HCl 200 MG Oral Tablet 30 days, 0 refills - Lagevrio 200 MG Oral Capsule 4 tablet (800mg) q12 hours x 5 days, 5 days, 0 refills - metFORMIN HCl 500 MG Oral Tablet 30 days, 0 refills - Rosuvastatin Calcium 10 MG Oral Tablet 30 days, 0 refills - Rybelsus 14 MG Oral Tablet 30 days, 0 refills Past Medical/Surgical History Reported: Medications: Taking OTC medications. Exposure: No exposure to a contagious disease. Social History Tobacco use: No tobacco use. Allergies - Biaxin - Codeine - Iodine - Keflex Review Of Systems Systemic: No fever and no chills. Head: No headache and no sinus pressure. Otolaryngeal: No earache. Nasal discharge. No sore throat. Cardiovascular: No chest pain or discomfort. Pulmonary: Cough. No wheezing. Gastrointestinal: No vomiting, no abdominal pain, and no diarrhea. Musculoskeletal: No muscle aches. Skin: No skin lesions. Physical Findings - Vitals taken 07/14/2023 02:46 pm Pulse Rate-Sitting 72 bpm Respiration Rate 20 per min Temp-Oral 98.9 F Weight 149 lbs Oxygen Saturation 94 % General Appearance: - Well-appearing. - Well developed. - Well nourished. - Well hydrated. - In no acute distress. Ears: Right Ear: Tympanic Membrane: - Normal. - No bulging tympanic membrane. - Not erythematous. - No pus behind tympanic membrane. - No serous exudate behind tympanic membrane. Left Ear: Tympanic Membrane: - Normal. - No bulging tympanic membrane. - Not erythematous. - No pus behind tympanic membrane. - No serous exudate behind tympanic membrane. Nose: General/bilateral: Discharge: - Nasal discharge. Cavity: - Nasal mucosa not red. Sinus Tenderness: - No sinus tenderness. Pharynx: Oropharynx: - Soft palate was normal. - Tonsils were not erythematous. - Tonsils were not enlarged. - Tonsils showed no exudate. - Not inflamed. Mucosal: - Pharynx showed no accumulation of mucous. Lymph Nodes: - Normal. - Anterior cervical lymph nodes were not enlarged on the right. - Anterior cervical lymph nodes were not enlarged on the left. - Posterior cervical lymph nodes were not enlarged on the right. - Posterior cervical lymph nodes were not enlarged on the left. Lungs: - Clear to auscultation. - No decrease in breath sounds was heard in the right lung. - No decrease in breath sounds was heard in the left lung. - No inspiratory wheezing was heard. - No expiratory wheezing was heard. - No rhonchi were heard on the right. - No rhonchi were heard on the left. Cardiovascular: Heart Rate And Rhythm: - Normal. Heart Sounds: - Normal. Abdomen: Visual Inspection: - Showed the abdomen was flat. Auscultation: - Bowel sounds were normal. Palpation: - Abdomen was soft. - No direct tenderness in the abdomen. Skin: - Texture was normal. - Turgor was normal. - Turgor was not decreased. - Moisture was normal. - Mucous membranes were not dry. - Temperature was normal. Tests - Test: SARS COVID-19 FLU A & B Report Date: 07/14/2023 COVID neg Normal INFLUENZA A neg Normal INFLUENZA B neg Normal INT. QC ACCEPTABLE? y Normal LOT # & EXP. DATE [id number] 01/29/24 Normal Assessment - Cough [Cough] Therapy - The options include antihistamines as needed per product instructions. - Patient to call if symptoms worsen or not improved to update patient's status as needed. - Plan of care reviewed and agreed to. Pt to use OTC fever/pain product as needed per product instruction. . Pt to use OTC expectorant product as needed per product instruction. . Pt to use OTC cough product as needed per product instruction. . Plan StartCited - Acute cough In office procedures/*Clia Waived Labs: SARS COVID-19 + flu A & B test Doxycycline Hyclate 100 MG capsule One tablet twice a day, 10 days, 0 refills EndCited - The options include close observation - Continue current medication Rapid COVID testing performed today and was negative. Call with development of additional or worsening symptoms. Go to ED with severe respiratory symptoms. Practice Management Review of medications documented.
--- OUTSIDE RECORDS SUMMARY | 2024-05-12 11:25 | XMS_ITS | Patient Health Record ---
Author Organization [facility] Address [address] [facility] [address] [facility] [address] [place], [place] [address] Care Team Providers Care Threading Machine Operator Name Role Phone Francisco Garcia M.D. Unavailable FRANCISCO ELISE MD Unavailable Unavailabl e ALLERGIES Allergen (clinical drug ingredient) Drug/Non Drug Allergy documented on EMR Reaction Allergy Type Onset Date Status tramadol Ultram Unknown Drug Allergy Active Biaxin Unknown Drug Allergy Active Keflex Unknown Drug Allergy Active iodine, and tape (uncoded) Unknown Allergy Active penicillin Unknown Drug Allergy Active codeine codeine Unknown Drug Allergy Active Lodine XL Unknown Drug Allergy Active REASON FOR REFERRAL No Information MEDICATIONS Medication SIG (Take, Route, Frequency, Duration) Notes Start Date End Date Status amLODIPine 5 mg 1 tab(s) orally once a day 02/11/2024 02/11/2024 Active Lipitor 10 mg 1 tab(s) orally once a day (at bedtime) 02/11/2024 02/11/2024 Active Cimzia 200 mg 400 mg subcutaneousl y every 4 weeks for 30 days 12/19/2008 02/11/2024 Active fluticasone CFC free 44 mcg/inh 2 puff(s) inhaled 2 times a day 02/11/2024 02/11/2024 Active metoprolol 200 mg 1 tab(s) orally once a day 02/11/2024 02/11/2024 Active furosemide 40 mg 1 tab(s) orally once a day 02/11/2024 02/11/2024 Active Diovan 320 mg 1 tab(s) orally once a day 02/11/2024 02/11/2024 Active guanFACINE 2 mg 1 tab(s) orally once a day (at bedtime) 02/11/2024 02/11/2024 Active folic acid 1 mg 2 tab(s) orally once a day for 30 days 11/09/2008 02/11/2024 Active potassium chloride 20 mEq 1 tab(s) orall y 2 times a day 02/11/2024 02/11/2024 Active methotrexate 2.5 mg 6 tab(s) orally once a week for 30 days 02/11/2024 02/11/2024 Active amitriptyline 25 mg 1 tab(s) orally once a day (at bedtime) 02/11/2024 02/11/2024 Active glimepiride 4 mg 1 tab(s) orally once a day 02/11/2024 02/11/2024 Active Zovirax Topical 5% 1 charan applied topica lly 5 times a day 02/11/2024 02/11/2024 Active Actos 45 mg 1 tab(s) orally once a day 02/11/2024 02/11/2024 Active NexIUM 40 mg 1 cap(s) orally once a day 02/11/2024 02/11/2024 Active SOCIAL HISTORY Sex Assigned At : Social History Observation Description Sex Assigned At Unknown PROBLEMS Problem Type ICD Code Onset Dates Problem Status W/U Status Risk SNOMED Code Notes Problem Rheumatoid Arthritis (714.0) Active confirmed Rheumatoid arthritis (54962067) Problem MONITOR MED (V58.69) Active confirmed Long-term drug therapy (777752462) PLAN OF TREATMENT No Information Insurance Providers Payer Name Payer Address Payer Phone Subscriber Number Group Number Insured Name Patient Relationship to Insured Coverage Start Date Coverage End Date MEDICARE ASSIGNMENT [address] [place] [address] [id number] BRIANA ROSSI Self - patient is the insured 2 [employer] PPO [address] [place] [address] [id number] BRIANA ROSSI Self - patient is the insured 7 MEDICAL (GENERAL) HISTORY Medical History History ICD Code change in moles Tension headaches blurred vision sinus problems difficulty swallowing hoarseness thyroid disease hypertension swelling of ankles/feet bloating diarrhea, intermittent gas hemorrhoids indigestion stomach pain/cramps Lack of bladder control anxiety depression Surgical History Surgery Date(Month/Year) T & A D & C hemithyroidectomy oral surgery Sinus surgery cholecystectomy Kidney stones gallbladder surgery cataract surgery 2008
--- OUTSIDE RECORDS SUMMARY | 2024-05-12 11:25 | XMS_ITS | Encounter Summary ---
Author Organization [facility] Address [address] [place] [address] Phone Care Team Providers Care Solder Making Supervisor Name Role Phone Elsy Chance MD Primary Care Provider Hayden Minor DC Unavailable [phone] Robby Ruiz MD Unavailable [phone] Mateo Hogan MD Unavailable [phone] Lupis Linares MD Unavailable [phone] Demarcus Cardenas MD Unavailable [phone] Enrrique Nath MD Unavailable [phone] Ed Zavala MD Unavailable [phone] Alexey Carrera MD Unavailable [phone] Tejla MeyerW Unavailable [phone] Encounter Details Date Type Department Care Team (Late st Contact Info) Description 09/08/2019 Orders Only [facility] [address] [place] [address] Scanning, Provider Social History Tobacco [...] on file Legal Sex Female 10:51 AM PATCH DRILLER Gender Identity Not on file Sexual Orientation Not on file Occupation Industry Job Start Date Job End Date retired Not on file Not on file Not on file documented as of this encounter Plan of Treatment Not on file documented as of this encounter Procedures Procedure Name Priority Date/Time Associated Diagnosis Comments SCAN - LABS 09/08/2019 documented in this encounter Results * SCAN - LABS (09/08/2019) us Provider Scanning Final Result documented in this encounter Visit Diagnoses Not on filedocumented in this encounter Additional Health Concerns Infection Onset Date Last Indicated Resolved Time COVID: Suspected 12/17/2019 12/17/2019 12/18/2019 12:00 PM PATCH DRILLER Respiratory Infection (SANDEE), contact + droplet Comment:Automatically added due to negative COVID-19 result. 12/18/2019 12/18/2019 01/01/2020 3:0 7 AM PATCH DRILLER COVID: Suspected 05/31/2021 05/31/2021 05/31/2021 3:16 PM CDT COVID: Suspected 08/17/2021 08/17/2021 08/17/2021 10:11 AM CDT COVID: Suspected 08/28/2021 08/28/2021 08/28/2021 1:39 PM CDT COVID: Suspected 07/13/2022 07/13/2022 07/13/2022 4:36 PM CDT COVID: Suspected 01/31/2024 01/31/2024 01/31/2024 7:16 PM PATCH DRILLER COVID19 01/31/2024 01/31/2024 02/10/2024 3:05 AM PATCH DRILLER COVID: Recovered Comment:Added based on recent COVID infection. 02/10/2024 02/12/2024 02/25/2024 7:[address] COVID19 02/24/2024 02/24/2024 02/25/2024 7:16 AM PATCH DRILLER COVID: Recovered Comment:Added based on recent COVID infection. 02/25/2024 02/25/2024 COVID19 03/02/2024 03/02/2024 03/12/2024 3:07 AM PATCH DRILLER COVID: Suspected 04/30/2024 04/30/2024 04/30/2024 1:45 PM CDT documented as of this encounter Care Teams Solder Making Supervisor Relationship Specialty Start Date End Date Elsy Chance MD PCP - General 05/10/16 Hayden Minor DC Chiropractic Medicine 09/17/16 Robby Ruiz MD [address] [place] [address] [place] [address] Consulting Physician Ophthalmology 09/17/16 Mateo Hogan MD [address] [address] Consulting Physician Ophthalmology 09/17/16 Lupis Linares MD [address] [facility] [address] [place] [address] Consulting Physician Pain Management 09/17/16 Demarcus Cardenas MD [address] [place] [address] [place] [address] Consulting Physician Gastroenterology 09/17/16 Enrrique Nath MD [address] [place] [address] [place] [address] Consulting Physician Rheumatology 11/05/17 [place] [address] [place] [address] Consulting Physician Cardiovascular Disease 11/05/17 Alexey [place] [address] Referring Physician Allergy and Immunology 05/12/19 Tejal Meyer, [address] [place] [address] Generation Technician Beauty Shop Manager 09/09/23 10/02/23 documented as of this encounter
--- OUTSIDE RECORDS SUMMARY | 2024-05-12 11:25 | XMS_ITS | Encounter Summary ---
Author Organization [facility] Address [address] [place] [address] Phone Care Team Providers Care Outpatient Coordinator Name Role Phone Elsy Chance MD Primary Care Provider [phone]- [phone] Hayden Minor DC Unavailable [phone] Robby Ruiz MD Unavailable [phone] Mateo Hogan MD Unavailable [phone] Lupis Linares MD Unavailable [phone] Demarcus Cardenas MD Unavailable [phone] Enrrique Nath MD Unavailable [phone] Ed Zavala MD Unavailable [phone] Alexey Carrera MD Unavailable [phone] Tejal MeyerW Unavailable [phone] Encounter Details Date Type Department Care Team (Late st Contact Info) Description 03/14/2022 Orders Only [facility] [address] [place] [address] Elsy Chance MD [address] [place] [address] Social History Tobacco Use Types Packs/Day Years [...] on file Legal Sex Female 10:51 AM [employer] Gender Identity Not on file Sexual Orientation Not on file Occupation Industry Job Start Date Job End Date retired Not on file Not on file Not on file documented as of this encounter Plan of Treatment Not on file documented as of this encounter Procedures Procedure Name Priority Date/Time Associated Diagnosis Comments SCAN - RADIOLOGY/IMAGING 03/14/2022 SCAN - LABS 03/14/2022 documented in this encounter Results * SCAN - LABS (03/14/2022) Elsy Chance MD Final Resu lt * SCAN - RADIOLOGY/IMAGING (03/14/2022) Anatomical Region Laterality Modality Other Provider Scanning Final Result documented in this encounter Visit Diagnoses Not on filedocumented in this encounter Additional Health Concerns Infection Onset Date Last Indicated Resolved Time COVID: Suspected 07/13/2022 07/13/2022 07/13/2022 4:36 PM CDT COVID: Suspected 01/31/2024 01/31/2024 01/31/2024 7:16 PM [employer] COVID19 01/31/2024 01/31/2024 02/10/2024 3:05 AM [employer]BER COVID: Recovered Comment:Added based on recent COVID infection. 02/10/2024 02/12/2024 02/25/2024 7:[address] COVID19 02/24/2024 02/24/2024 02/25/2024 7:16 AM [employer] COVID: Recovered Comment:Added based on recent COVID infection. 02/25/2024 02/25/2024 COVID19 03/02/2024 03/02/2024 03/12/2024 3:07 AM [employer]BER COVID: Suspected 04/30/2024 04/30/2024 04/30/2024 1:45 PM CDT documented as of this encounter Care Teams Outpatient Coordinator Relationship Specialty Start Date End Date Elsy Chance MD PCP - General 05/10/16 Hayden Minor DC Chiropractic Medicine 09/17/16 Robby Ruiz MD [address] [place] [address] [place] [address] Consulting Physician Ophthalmology 09/17/16 Mateo Hogan MD [address] [facility] [address] [place] [address] Consulting Physician Ophthalmology 09/17/16 Lupis Linares MD [address] [facility] [address] [place] [address] Consulting Physician Pain Management 09/17/16 Demarcus Cardenas MD [address] [place] [address] [place] [address] Consulting Physician Gastroenterology 09/17/16 Enrrique Nath MD [address] [place] [address] [place] [address] Consulting Physician Rheumatology 11/05/17 [place] [id number] [address] Consulting Physician Cardiovascular Disease 11/05/17 Alexey Carrera MD [address] [place] [address] [place] [address] Referring Physician Allergy and Immunology 05/12/19 Tejal Meyer, [address] [place] [address] [employer]inder [employer] Mason Sammying Machine Operator 09/09/23 10/02/23 documented as of this encounter
--- OUTSIDE RECORDS SUMMARY | 2024-05-12 11:25 | XMS_ITS | Clinical Summary ---
Author Organization [facility] Address [address] [place] [address] Phone Care Team Providers Care Court Monitor Name Role Phone JUAN DAVID STONE Primary Care Provider [phone] Reason for Visit and Chief Complaint HEART CENTER CHECK UP Problems Includes: Problems addressed during this encounter and other active Problems All Visits Onset Date Resolved Date Provider Condition S tatus Depressive Disorder NEC 05/08/2010 SUKUMAR NGUYEN M.D. Active Last Documented On 1 1:49PM ; [facility] HYPERLIPIDEMIA NEC/NOS 05/08/2010 KANDICE BADILLO M.D. Active Last Documented On 1 1:46PM ; [facility] IRRITABLE BOWEL SYNDROME 05/08/2010 KANDICE RUSH M.D. Active Last Documented On 1 1:48PM ; [facility] RHEUMATOID ARTHRITIS 05/08/2010 KANDICE NELSON M.D. Active Last Documented On 1 1:46PM ; [facility] ACUTE SINUSITIS NOS 05/25/2009 KANDICE ROBERTS M.DParvez Active Last Documented On 0 12:25PM ; [facility] Arthropathy NOS-Unspec 05/25/2009 KANDICE BADILLO M.D. Active Last Documented On 0 12:25PM ; [facility] DMII UNSPF UNCNTRLD 05/25/2009 KANDICE BLACKMON ON M.DParvez Active Last Documented On 0 12:24PM ; [facility] FIBROMATOSES NEC 05/25/2009 KANDICE NGUYEN M.D. Active Last Documented On 0 12:25PM ; [facility] HYPERTENSION NOS 05/25/2009 KANDICE NGUYEN M.D. Active Last Documented On 0 12:23PM ; [facility] Plan of Treatment No Plan [...] On 4 12:19PM By Melyssa RUSSELL ; [facility] Jardiance 25 MG Oral Tablet 12/25/2021 Provider: JUAN DAVID STONE Diagnosis: Last Documented On 2 2:09PM By Maria C CONNOR ; [facility] Labetalol HCl 200 MG Oral Tablet 12/25/2021 Provider : JUAN DAVID STONE Diagnosis: Last Documented On 2 2:09PM By Maria C CONNOR ; [facility] metFORMIN HCl 500 MG Oral Tablet 12/25/2021 Provider : JUAN DAVID STONE Diagnosis: Last Documented On 2 2:09PM By Maria C CONNOR ; [facility] Rosuvastatin Calcium 10 MG Oral Tablet 12/25/2021 Pr ovider: JUAN DAVID STONE Diagnosis: Last Documented On 2 2:09PM By Maria C CONNOR ; [facility] Rybelsus 14 MG Oral Tablet 12/25/2021 Provider: Monty STONE Diagnosis: Last Documented On 2 2:09PM By Maria C CONNOR ; [facility] Hydroxychloroquine Sulfate 200 MG Oral Tablet 12/26/19 Provider: Diagnosis: Last Documented On 2 2:09PM By Maria C CONNOR ; [facility] Famotidine 20 MG Oral Tablet 12/25/2021 Provider: JUAN DAVID STONE Diagnosis: Last Documented On 2 2:09PM By Maria C CONNOR ; [facility] DULoxetine HCl 60 MG Oral Capsule Delayed Releas e Particles 12/25/2021 Provider: Diagnosis: Last Documented On 2 2:09PM By Maria C CONNOR ; [facility] buPROPion HCl ER (XL) 150 MG Oral Tablet Extended Release 24 Hour 12/25/2021 Provider: JUAN DAVID MCGARRY LL Diagnosis: Last Documented On 2 2:09PM By Maria C CONNOR ; [facility] Medications Administered Includes: Administered Medications [...] Active Last Documented On 4 12:19PM ; [facility] Iodine Allergy 05/25/2009 Active Last Documented On 4 12:19PM ; [facility] Codeine Allergy 05/25/2009 Active Last Documented On 4 12:19PM ; [facility] Biaxin Allergy 05/25/2009 Active Last Documented On 4 12:19PM ; [facility] Encounters Encounter Provider Location Date Check-In Time Check-Out Time Diagnosis HEART CENTER CHECK UP AYE BAKER MD [facility] 3 3:15PM 3:15PM Insurance Includes: Active Insurance Policies Plan Name Member ID Group # Subscriber Relationship Effect edgar Dates 1 - [employer] [id number] BRIANA Tru [place] Self Clinical Notes Includes: Clinical Notes from this encounter No Clinical Notes Recorded
--- OUTSIDE RECORDS SUMMARY | 2024-05-12 11:25 | XMS_ITS | Clinical Summary ---
Author Organization [facility] Address [address] [place] [address] Phone Care Team Providers Care Drip Pumper Name Role Phone JUAN DAVID STONE Primary Care Provider [phone] Reason for Visit and Chief Complaint HEART CENTER CHECK UP Problems Includes: Problems addressed during this encounter and other active Problems All Visits Onset Date Resolved Date Provider Condition S tatus Depressive Disorder NEC 05/08/2010 SUKUMAR NGUYEN M.D. Active Last Documented On 1 1:49PM ; [facility] HYPERLIPIDEMIA NEC/NOS 05/08/2010 KANDICE BADILLO M.D. Active Last Documented On 1 1:46PM ; [facility] IRRITABLE BOWEL SYNDROME 05/08/2010 KANDICE RUSH M.D. Active Last Documented On 1 1:48PM ; [facility] RHEUMATOID ARTHRITIS 05/08/2010 KANDICE NELSON M.D. Active Last Documented On 1 1:46PM ; [facility] ACUTE SINUSITIS NOS 05/25/2009 KANDICE ROBERTS M.DParvez Active Last Documented On 0 12:25PM ; [facility] Arthropathy NOS-Unspec 05/25/2009 KANDICE BADILLO M.D. Active Last Documented On 0 12:25PM ; [facility] DMII UNSPF UNCNTRLD 05/25/2009 KANDICE BLACKMON ON M.DParvez Active Last Documented On 0 12:24PM ; [facility] FIBROMATOSES NEC 05/25/2009 KANDICE NGUYEN M.D. Active Last Documented On 0 12:25PM ; [facility] HYPERTENSION NOS 05/25/2009 KANDICE NGUYEN M.D. Active Last Documented On 0 12:23PM ; [facility] Plan of Treatment No [...] On 4 12:19PM By Melyssa RUSSELL ; [facility] Jardiance 25 MG Oral Tablet 12/25/2021 Provider: JUAN DAVID STONE Diagnosis: Last Documented On 2 2:09PM By Maria C CONNOR ; [facility] Labetalol HCl 200 MG Oral Tablet 12/25/2021 Provider : JUAN DAVID STONE Diagnosis: Last Documented On 2 2:09PM By Maria C CONNOR ; [facility] metFORMIN HCl 500 MG Oral Tablet 12/25/2021 Provider : JUAN DAVID STONE Diagnosis: Last Documented On 2 2:09PM By Maria C CONNOR ; [facility] Rosuvastatin Calcium 10 MG Oral Tablet 12/25/2021 Pr ovider: JUAN DAVID STONE Diagnosis: Last Documented On 2 2:09PM By Maria C CONNOR ; [facility] Rybelsus 14 MG Oral Tablet 12/25/2021 Provider: Monty STONE Diagnosis: Last Documented On 2 2:09PM By Maria C CONNOR ; [facility] Hydroxychloroquine Sulfate 200 MG Oral Tablet 12/26/19 Provider: Diagnosis: Last Documented On 2 2:09PM By Maria C CONNOR ; [facility] Famotidine 20 MG Oral Tablet 12/25/2021 Provider: JUAN DAVID STONE Diagnosis: Last Documented On 2 2:09PM By Maria C CONNOR ; [facility] DULoxetine HCl 60 MG Oral Capsule Delayed Releas e Particles 12/25/2021 Provider: Diagnosis: Last Documented On 2 2:09PM By Maria C CONNOR ; [facility] buPROPion HCl ER (XL) 150 MG Oral Tablet Extended Release 24 Hour 12/25/2021 Provider: JUAN DAVID MCGARRY LL Diagnosis: Last Documented On 2 2:09PM By Maria C CONNOR ; [facility] Medications Administered Includes: Administered Medications from [...] Active Last Documented On 4 12:19PM ; [facility] Iodine Allergy 05/25/2009 Active Last Documented On 4 12:19PM ; [facility] Codeine Allergy 05/25/2009 Active Last Documented On 4 12:19PM ; [facility] Biaxin Allergy 05/25/2009 Active Last Documented On 4 12:19PM ; [facility] Encounters Encounter Provider Location Date Check-In Time Check- Out Time Diagnosis HEART CENTER CHECK UP GANESH GREENE MD [facility] 4 1:00PM 1:25PM Insurance Includes: Active Insurance Policies Plan Name Member ID Group # Subscriber Relationship Effect edgar Dates 1 - [employer] [id number] BRIANA Tru [place] Self Clinical Notes Includes: Clinical Notes from this encounter No Clinical Notes Recorded
--- OUTSIDE RECORDS SUMMARY | 2024-05-12 11:26 | XMS_ITS | Referral Summary ---
Author Organization [facility] [address] Address [address] [place] [address] Phone Care Team Providers Care Fashion Stylist Name Role Phone Elsy Chance MD Primary Care Provider Hayden Minor DC Unavailable [phone] Robby Ruiz MD Unavailable [phone] Mateo Hogan MD Unavailable [phone] Lupis Linares MD Unavailable [phone] Demarcus Cardenas MD Unavailable [phone] Enrrique Nath MD Unavailable [phone] Ed Zavala MD Unavailable [phone] Alexey Carrera MD Unavailable [phone] Encounters Date Type Department Care Team Description 05/10/[address] [facility] Health Information Management [address] [place] [address] Elsy Chance MD 05/10/2024 Telephone [facility] [address] [place] [address] Elsy Chance MD 05/07/2024 2:00 PM CDT Office Visit [facility] [address] [facility] [address] [place] [address] Lisa Hanson, PRINCIPAL ENGINEER Pneumonia due to infectious organism, unspecified laterality, unspecified part of lung (Primary Dx); Costal chondritis; Impacted cerumen of left ear 04/30/2024 1:00 PM CDT Ancillary Procedure [facility] [address] [facility] [address] [place] [address] Expiratory wheezing 04/30/2024 1:30 PM CDT Office Visit [facility] [address] [facility] [address] [place] [address] Lisa Hanson, PRINCIPAL ENGINEER Pneumonia due to infectious organism, unspecified laterality, unspecified part of lung (Primary Dx); Costal chondritis; Mood disorder; Medication monitoring encounter 04/29/2024 Telephone [facility] [address] [facility] [address] [place] [address] Elsy Chance MD 04/16/2024 Results Follow-Up [facility] [address] [facility] [address] [place] [address] Elsy Chance MD 04/16/2024 11:13 AM ORTHOTIC PRACTITIONER - 04/16/2024 11:59 PM ORTHOTIC PRACTITIONER Hospital Encounter [address] [address] Elevated d-dimer; Shortness of breath Discharge Disposition: Discharge to home or self care 04/16/2024 10:44 AM ORTHOTIC PRACTITIONER - 04/16/2024 11:59 PM ORTHOTIC PRACTITIONER Hospital Encounter [address] [address] Elevated d-dimer; Shortness of breath Discharge Disposition: Discharge to home or self care 04/14/2024 Telephone [facility] [address] [facility] [address] [place] [address] Elsy Chance MD 04/13/2024 Telephone [facility] [address] [place] [address] Elsy Chance MD Critical D-Dimer 04/12/[address] [facility] Health Information Management [address] [place] [address] Scanning, Provider 04/09/2024 Telephone [facility] [address] [place] [address] Elsy Chance MD Spoke With Home Health Provider 04/07/2024 11:30 AM ORTHOTIC PRACTITIONER [facility] [address] [place] [address] Elsy Chance MD Hospital discharge follow-up (Primary Dx); Rheumatoid arthritis of multiple sites with negative rheumatoid factor (HCC); Cervical radiculopathy at C7; Shortness of breath; Chronic pain disorder; Type 2 diabetes mellitus with other circulatory complication, without long-term current use of insulin (HCC); 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); Hypertension complicating diabetes (HCC); Multiple-type hyperlipidemia; Diastolic dysfunction; Depression, recurrent; Incontinence of urine in female; 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); Chronic GERD; Immunization counseling; Abnormal gait 04/05/2024 Orders Only [facility] [address] [place] [address] Elsy Chance MD Type 2 diabetes mellitus with other circulatory complication, without long-term current use of insulin (HCC) (Primary Dx); Intertrigo 04/05/2024 Telephone [facility] [address] [place] [address] Elsy Chance MD Spoke With Home Health Provider 03/30/2024 Telephone [facility] [address] [place] [address] Elsy Chance MD Missed appt 03/05/2024 Orders Only [facility] [address] [place] [address] Scanning, Provider 03/02/2024 Telephone [facility] [address] [place] [address] Elsy Chance MD 02/24/2024 5:08 PM ORTHOTIC PRACTITIONER - 03/02/2024 2:08 PM ORTHOTIC PRACTITIONER Hospital Encounter [facility] [address] [place] [address] Carlos Manuel Herron MD Huynh, Kiet T., MD Sinha, Chandni, MD Nikolic, MD Joana Weakness (Primary Dx) Discharge Disposition: Discharge to [facility] 02/24/2024 Telephone [facility] [address] [place] [address] Elsy Chance MD 02/24/2024 1:00 PM ORTHOTIC PRACTITIONER Office Visit [facility] [address] [place] [address] Elsy Chance MD Frailty syndrome in geriatric patient (Primary Dx); Orthostatic hypotension; Multiple falls; Right hip pain; Post herpetic neuralgia; Mild vascular dementia without behavioral disturbance, psychotic disturbance, mood disturbance, or anxiety ([facility]); COVID-19 in immunocompromised patient; Rheumatoid arthritis of multiple sites with negative rheumatoid factor ([facility]) from Last 3 Months Allergies Active Allergy Reactions Criticality Noted Date Comments Steve Inhibitors Cough Low Reaction: Cough, , Reaction: Cough, Amoxicillin Diarrhea Low Reaction: Diarrhea, , , , , , Amoxicillin-Pot Clavulanate Unknown Low Cephalexin Diarrhea,Other (See comments),Unknown Low 05/25/2009 Reaction: Diarrhea, , Reaction: DIARRHEA, , , , Clarithromycin Diarrhea,Unknown Low 05/25/2009 Reaction: Diarrhea, , , , , Reaction: Diarrhea, Codeine Unknown Low Duloxetine Mental status changes Low 01/26/2024 Etodolac Unknown 08/14/2022 Iodinated Contrast Media Unknown Low Iodine Unknown Low Leflunomide Other (See comments) Low Reaction: ELEVATED LFT, , Reaction: ELEVATED LFT, Lisinopril Diarrhea Low Reaction: Diarrhea, , Reaction: diarrhea, , Reaction: Diarrhea, Niacin Flushing (skin) Low Reaction: FLUSHING, , , Reaction: FLUSHING, Penicillins Anaphylaxis,Unknown High 07/24/2022 Potassium Diarrhea Low Reaction: Diarrhea, , , , , , Tramadol Unknown 08/14/2022 Medications blood-glucose meter (OneTouch Verio Flex meter) misc Use to test glucose levels once daily E11.9 1 each 022 Active polyethylene glycol (MIRALAX) 17 gram/dose powderIndications:Chr onic constipation Take 17 g by mouth daily 527 g 3 023 Active certolizumab pegol (Cimzia) 400 mg (200 mg x 2) kit 009 Active albuterol HFA (PROVENTIL HFA,VENTOLIN HFA,PROAIR HFA) 90 mcg/actuation inhaler Inhale 2 puffs every 6 (six) hours as needed for shortness of breath 18 g 5 023 Active vit C,F-Vk-gqjcm-lutein-z eaxan (PreserVision AREDS-2) 250-90-40-1 mg capsuleIndications: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) Take 1 capsule by mouth daily 30 capsule 11 024 Active OneTouch Verio test strips strip USE TO TEST GLUCOSE LEVELS ONCE DAILY E11.9 100 strip 3 024 Active rosuvastatin (CRESTOR) 10 mg tabletIndications:Typ e 2 diabetes mellitus with other circulatory complication, without long-term current use of insulin (HCC),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),Multiple-type hyperlipidemia Take 1 tablet (10 mg total) by mouth daily 30 tablet 6 024 Active hydroxychloroquine (PLAQUENIL) 200 mg tablet Take by mouth daily Active donepeziL (ARICEPT) 10 mg tablet Take 1 tablet (10 mg total) by mouth nightly Active amLODIPine (NORVASC) 5 mg tablet Take 1 tablet (5 mg total) by mouth daily 30 tablet 11 22/2 025 2025 Active donepeziL (ARICEPT) 10 mg tablet Take 1 tablet (10 mg total) by mouth nightly 30 tablet 025 2025 Active nystatin powderIndications:Int ertrigo Apply topically 4 (four) times a day 60 g 025 2025 Active famotidine (PEPCID) 20 mg tabletIndications:Chr onic GERD Take 1 tablet (20 mg total) by mouth 2 (two) times a day 60 tablet 025 Active predniSONE (DELTASONE) 50 mg tablet Pt having CT of chest on 04/14/24. She should take 1 tab 13H prior, 1 tab 7H prior and 1 tab 1H prior to the CT due to dye allergy 3 tablet 025 Active diphenhydrAMINE (BENADRYL) 50 mg capsule Take 1 tab 1H prior to CT-scheduled for 04/14/24 1 capsule 025 Active budesonide-formoteroL (SYMBICORT) 160-4.5 mcg/actuation inhaler Inhale 2 puffs 2 (two) times a day Rinse mouth with water after use. Do not swallow. 025 Active empagliflozin (Jardiance) 25 mg tabletIndications:Typ e 2 diabetes mellitus with other circulatory complication, without long-term current use of insulin ([facility]),Diastolic dysfunction TAKE 1 TABLET (25 MG TOTAL) BY MOUTH DAILY 30 tablet 025 Active mirabegron ER (MYRBETRIQ) 25 mg tablet extended release 24 hrIndications:Inconti nence of urine in female TAKE 1 TABLET (25 MG TOTAL) BY MOUTH DAILY 30 tablet 025 Active buPROPion XL (WELLBUTRIN XL) 150 mg 24 hr tabletIndications:Moo d disorder,Chronic pain disorder TAKE 1 TABLET (150 MG TOTAL) BY MOUTH DAILY 30 tablet 025 Active labetaloL (NORMODYNE,TRANDATE) 100 mg tabletIndications:Chica stolic dysfunction,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),Hypertension complicating diabetes ([facility]) TAKE 1 TABLET (100 MG TOTAL) BY MOUTH TWO (2) (TWO) TIMES a DAY 60 tablet 025 Active metFORMIN (GLUCOPHAGE) 500 mg tabletIndications:Typ e 2 diabetes mellitus with other circulatory complication, without long-term current use of insulin ([facility]) TAKE 1 TABLET (500 MG TOTAL) BY MOUTH TWO (2) (TWO) TIMES a DAY WITH MEALS 60 tablet 025 Active levoFLOXacin (LEVAQUIN) 500 mg tabletIndications:Pne umonia due to infectious organism, unspecified laterality, unspecified part of lung Take 1 tablet (500 mg total) by mouth daily for 7 days 7 tablet 025 2024 Active benzonatate (TESSALON) 200 mg capsuleIndications:Pn eumonia due to infectious organism, unspecified laterality, unspecified part of lung Take 1 capsule (200 mg total) by mouth 3 (three) times a day as needed for cough 30 capsule 025 Active SITagliptin (JANUVIA) 100 mg tabletIndications:typ e 2 diabetes mellitus Take 1 tablet (100 mg total) by mouth daily 90 tablet 1 020 2019 Discontinued glimepiride (AMARYL) 2 mg tabletIndications:Typ e 2 diabetes mellitus without complication, without long-term current use of insulin ([facility]),Type 2 diabetes mellitus (HCC) Take 1 tablet (2 mg total) by mouth daily before breakfast 90 tablet 1 020 2019 Discontinued empagliflozin (JARDIANCE) 25 mg tabletIndications:typ e 2 diabetes mellitus Take 1 tablet (25 mg total) by mouth daily 30 tablet 6 024 2024 Discontinued labetaloL (NORMODYNE,TRANDATE) 100 mg tabletIndications:Chica stolic dysfunction,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),Hypertension complicating diabetes (HCC) Take 1 tablet (100 mg total) by mouth 2 (two) times a day 60 tablet 6 024 2024 Discontinued metFORMIN (GLUCOPHAGE) 500 mg tabletIndications:Typ e 2 diabetes mellitus with other circulatory complication, without long-term current use of insulin (HCC) Take 1 tablet (500 mg total) by mouth 2 (two) times a day with meals 60 tablet 6 024 2024 Discontinued buPROPion XL (WELLBUTRIN XL) 150 mg 24 hr tabletIndications:Moo d disorder,Chronic pain disorder Take 1 tablet (150 mg total) by mouth daily 30 tablet 6 024 2024 Discontinued mirabegron ER (MYRBETRIQ) 25 mg tablet extended release 24 hrIndications:Inconti nence of urine in female TAKE 1 TABLET (25 MG TOTAL) BY MOUTH DAILY 90 tablet 1 024 2024 Discontinued doxycycline (VIBRAMYCIN) 100 mg capsuleIndications:Pn eumonia due to infectious organism, unspecified laterality, unspecified part of lung Take 1 tablet/capsu le (100 mg total) by mouth 2 (two) times a day for 10 days 20 tablet/cap mello 025 2024 Active Problems Problem Noted Date Diagnosed Date Costal chondritis 04/30/2024 Assessment & Plan (05/07/2024 2:36 PM CDT): Acute, stable, improving Differential diagnoses: 2/2 cough from PNA v osteoarthritis of shoulder referred pain Hx relative to dx: Pneumonia Relative exam findings today: Mild tenderness to touch of sternal border, improved from prior Current meds: None Today's Plan: Start levaquin for pneumonia coverage Start Tessalon Discontinue doxycycline today Lab orders: none Imaging orders: none Assessment & Plan (04/30/2024 2:02 PM CDT): Acute, Progressive, and New Differential diagnoses: 2/2 cough from PNA v osteoarthritis of shoulder referred pain Hx relative to dx: Pneumonia Relative exam findings today: Mild tenderness to touch of sternal border Current meds: None Today's Plan: Start doxycycline for pneumonia coverage Lab orders: none Imaging orders: none Pneumonia due to infectious organism 04/30/2024 Assessment & Plan (05/07/2024 2:50 PM CDT): Acute, progressive, labile Differential diagnoses: Bacterial v aspiration pneumonia CXR at last visit 04/30/24 Relative exam findings today: Productive cough with clear phlegm, diminished lung sounds, wheezing to lower left lobe Current meds: Takes Zyrtec daily; currently taking doxycycline started 04/30 POC flu/COVID negative 05/01/23 Today's Plan: Discontinue doxycycline Continue Symbicort Start levaquin and tessalon O2 sats remained stable during clinic visit today Continue Zyrtec Lab orders: none Imaging orders: none Discussed: Taking antibiotics with food to avoid GI discomfort Encourage patient to follow-up after completion of antibiotics Discussed taking O2 sats at home and sustained low readings warrant ED presentation. Any shortness of breath, chest discomfort or pain also warrants ED presentation Assessment & Plan (04/30/2024 2:20 PM CDT): Acute, Progressive, and New Differential diagnoses: Bacterial v aspiration pneumonia Review chest x-ray Relative exam findings today: Productive cough with clear phlegm, diminished lung sounds, wheezing to lower left lobe Current meds: Takes Zyrtec daily POC flu/COVID negative today Today's Plan: Start doxycycline Continue Zyrtec Chest x-ray reviewed today Lab orders: none Imaging orders: none Discussed: Taking antibiotics with food to avoid GI discomfort Encourage patient to follow-up after completion of antibiotics Depression, recurrent 04/07/2024 Osteoporosis, idiopathic 03/29/2024 Overview (03/29/2024): NEW DIAGNOSIS MAY 30, 2024 BASED ON FRAX COMPARISON: 07/28/2019 FINDINGS: AP LUMBAR SPINE L1-L4: Total BMD is 1.291 g/cm2 T-score is 2.2 LEFT HIP: Total BMD is 0.833 g/cm2 T-score is -0.9 Femoral neck BMD is 0.684 g/cm2 T-score is -1.5 FRAX: 10 year risk for a major osteoporotic fracture is 16 %, 10 year risk for a hip fracture is 5.0 % Moderate malnutrition 02/26/2024 Closed nondisplaced fracture of proximal phalanx of lesser toe of right foot with routine healing 02/26/2024 Weakness 02/24/2024 Mild vascular dementia witho ut behavioral disturbance, psychotic disturbance, mood disturbance, or anxiety 02/14/2023 Assessment & Plan (01/26/2024 9:22 PM ORTHOTIC PRACTITIONER): Chronic, uncontrolled. Mood swings, insomnia, argumentative with family. Mild mood swings noted on exam today, no psychosis. Consulted with Dr. Chance in office today. We will stop duloxetine. Continue aricept and wellbutrin as rxd. Advised of good sleep hygiene habits. Follow in 3 weeks. Medication monitoring encounter 02/14/2023 Assessment & Plan (04/30/2024 2:19 PM CDT): Reviewed medications with patient today Hydroxyzine not brought with patient today nor on med list Benadryl currently on med list. Discouraged taking Benadryl and hydroxyzine similar in pharmacokinetics. Symbicort added to med list today. Take as prescribed. Plaquanil ordered by Dr. Nath, recommend follow up for further evaluation and discussion Mild cognitive impairment with memory loss 12/02 Multiple-type hyperlipidemia 05/24/2022 Seasonal allergic rhinitis due to pollen 022 Sensorineural hearing loss ( SNHL) of left ear with restricted hearing of right ear 06/15/2021 Assessment & Plan (06/15/2021 1:26 PM CDT): Hearing test - Dr. Lawson Chronic constipation 05/18/2021 Assessment & Plan (01/26/2024 9:20 PM ORTHOTIC PRACTITIONER): Chronic, uncontrolled. See HPI for details. No acute findings on exam. CMP, CBC from today unremarkable. KUB done at [facility] on 01/17/24 unremarkable. Advised miralax up to 3 scoops daily as needed until stools become soft. Discussed soluble VS insoluable sources of fiber-avoid nuts, beans, broccoli, cauliflower, green beans, potato skins, and bran. Stay hydrated. Educated on natural laxatives such as prunes, apple juice, smooth move tea, coffee, and probiotics. Assessment & Plan (10/29/2021 2:28 PM CDT): Increase miralax daily Continue the supps and return prn Guaiac positive stools 04/24/2021 Assessment & Plan (04/24/2021 12:48 PM CDT): Patient presents with reports of bright red bleeding on the toilet paper x 2 days. On exam today stools guaiac positive but hemorrhoid noted which is most likely contributing. On exam her vital signs are stable. She had colonoscopy in 2019 that showed internal hemorrhoids and diverticulosis. She is reporting cologuard test [address] Nath that was negative, we will get those results. We will do CBC and iron panel today to r/o any significant anemia. Patient instructed to avoid NSAIDs. Discussed hemorrhoid management as well in AVS. Patient will follow up in one week or sooner if needed. Degenerative lumbar spinal stenosis 05/30/2020 Cervical radiculopathy 05/02/2020 Compression fracture of L1 vertebra with routine healing 04/27/2020 Foraminal stenosis of cervical region 11/05/2019 Overview (11/08/2019): MRI C-spine September [address] Peterson treated with Medrol Dosepak considering foraminal injection C1-C2: No spinal canal stenosis. C2-C3: No diffuse disc bulge or focal herniation. Mild bilateral, left greater than right, hypertrophic facet arthropathy. No spinal canal stenosis. Minimal left neural foraminal stenosis. C3-C4: Minimal posterior disc bulge. Moderate-marked left and mild right hypertrophic facet arthropathy. Mild ligamentum flavum thickening. No spinal canal stenosis. Severe left and mild right neural foraminal stenosis. C4-C5: Mild posterior disc osteophyte complex with shallow left subarticular disc protrusion slightly indenting the left eccentric ventral thecal sac. Moderate right and mild left hypertrophic facet arthropathy. Mild bilateral uncovertebral joint disease. No spinal canal stenosis. Moderate left and mild right neural foraminal stenosis. C5-C6: Posterior disc osteophyte complex indenting the ventral thecal sac. Mild bilateral hypertrophic facet arthropathy. Moderate bilateral uncovertebral joint disease. No spinal canal stenosis. Moderate bilateral, right greater than left, neural foraminal stenosis. C6-C7: Posterior disc osteophyte complex indenting the ventral thecal sac. Mild bilateral facet arthropathy. Mild bilateral uncovertebral joint disease. No spinal canal stenosis. No neural foraminal stenosis. C7-T1: No diffuse disc bulge or focal herniation. No spinal canal stenosis. No neural foraminal stenosis. BASE OF BRAIN: No significant finding. UPPER THORACIC: Incompletely imaged. No significant spinal stenosis or foraminal stenosis. OTHER: No other significant finding. IMPRESSION: Minimal anterolisthesis C3 on C4 and C4 on C5 and straightening of cervical lordosis in association with spondylosis and degenerative disc disease of the cervical spine as detailed level by level above, noting multilevel variable neural foraminal stenosis. THIS IS AN ELECTRONICALLY VERIFIED FINAL REPORT 08/27/2019 8:59 AM - Electronically signed by Germán Dunbar M.D. Impacted cerumen of left ear 01/29/2019 Assessment & Plan (05/07/2024 2:45 PM CDT): # cerumen impaction c/b decreased hearing Chronic, stable History possibly contributing to diagnosis: history of cerumen impaction and use of hearing aids Pertinent exam findings: impacted cerumen to left ear Current therapy (ies)/home meds: none Left ears wax cleared with currette in clinic today with improvement in hearing. See procedure note. Encouraged patient to use hearing aid when she gets home to observe improvement Follows with audiology, she has appointment on Friday Today's plan: Left ear cerumen removed today with curette Medications ordered today: None today Education provided. Recommendations: Debrox or H2O2 for cerumen management, avoid q-tips Follow up with audiology on Friday Assessment & Plan (06/15/2021 1:27 PM CDT): Hearing test - Dr. Lawson Avoid ear cleaning techniques Assessment & Plan (01/29/2019 11:57 AM ORTHOTIC PRACTITIONER): Right ear wash today with resolution. Iron deficiency anemia due to chronic blood loss 12/16/2018 Overview (12/16/2018): Added automatically from request for surgery [id number] History of chickenpox 05/27/2018 Overview (05/27/2018): (+) varicella IgG May 2018 Wet age-related macular dege neration of both eyes with active choroidal neovascularization 05/06/2018 Overview (05/06/2018): Managing with Dr. Hogan for monthly injections Avastin Mood disorder 05/02/2017 Assessment & Plan (04/30/2024 2:18 PM CDT): Chronic and Stable Differential diagnosis: mood disorder v mild vascular dementia v depression History noted from problem list: Depression, vascular dementia mood disorder Relative exam findings today: none Current meds: Aricept, Wellbutrin Home health nurse had questions about hydroxyzine, hydroxyzine not on home med list Today's Plan: Continue meds as above Defer hydroxyzine at this time as it is not ordered Lab orders: none Imaging orders: none Benadryl currently on med list. Discouraged taking Benadryl and hydroxyzine should patient have hydroxyzine prescription at home. Assessment & Plan (01/26/2024 9:22 PM ORTHOTIC PRACTITIONER): Chronic, uncontrolled. Mood swings, insomnia, argumentative with family. Mild mood swings noted on exam today, no psychosis. Consulted with Dr. Chance in office today. We will stop duloxetine. Continue aricept and wellbutrin as rxd. Advised of good sleep hygiene habits. Follow in 3 weeks. Ischemic heart disease due to coronary artery ob struction 05/02/2017 Overview (05/24/2022): Images from the original note were not included. Coronary disease diagnosis is Based diagnosis made in 2018 based on coronary calcifications and a positive stress test. (-) heart catheterization for coronary blockage. No further follow-up with Dr. FLOYD or a cardiology team required. Stress test (+) April 2017 , Dr. FLOYD to do heart catheterization Diastolic dysfunction 09/16/2016 Assessment & Plan (02/09/2019 12:26 PM ORTHOTIC PRACTITIONER): Currently appears compensated and there is concern that patient may be dry secondary to her orthostasis and dizziness. A recent BNP was done and noted to be 20. She has no other signs of volume overload. We will hold her diuretics and re-evaluate on Friday. Rheumatoid arthritis of [facility] sites with negative rheumatoid factor 06/26/2013 Overview (08/27/2019): C-spine foraminal stenosis August [address] Linares pain management IMPRESSION: Minimal anterolisthesis C3 on C4 and C4 on C5 and straightening of cervical lordosis in association with spondylosis and degenerative disc disease of the cervical spine as detailed level by level above, noting multilevel variable neural foraminal stenosis. THIS IS AN ELECTRONICALLY VERIFIED FINAL REPORT 08/27/2019 8:59 AM - Electronically signed by Germán Dunbar M.D. Assessment & Plan (01/26/2024 9:18 PM ORTHOTIC PRACTITIONER): Chronic, controlled on cimzia and plaquenil at this time. Co-managed by rheumatology. C/o back and R leg pain as described above, complicated by shingles rash in L3 distribution to right thigh. Tenderness and mildly decreased ROM as noted in exam. Finish valtrex as rxd by . Take Tylenol PRN. Advised aspercreme or salon pas patches with lidocaine. Heat/ice as tolerated. Gentle stretching encouraged- offered PT consult and patient refused. Chronic GERD 06/26/2013 Overview (05/16/2016): GERD (gastroesophageal reflux disease) Essential hypertension 06/26/2013 Overview (05/17/2016): BENIGN HYPERTENSION Assessment & Plan (01/26/2024 9:10 PM ORTHOTIC PRACTITIONER): Chronic, at goal of <140/90. BP stable in office today on current therapy. Mood swings noted on exam. CMP from earlier today unremarkable. No rec Continue current recent cardiac testing in chart. Continue labetalol and low salt diet. Assessment & Plan (01/17/2023 3:18 PM ORTHOTIC PRACTITIONER): BP stable in office today on current therapy. No acute findings on exam. Continue current regimen and low salt diet. Assessment & Plan (08/18/2022 3:33 PM CDT): BP stable in office today on current therapy. No acute findings on exam. Continue current regimen and low salt diet. Assessment & Plan (03/10/2019 3:44 PM ORTHOTIC PRACTITIONER): Consulted with Dr. Martins regarding her recent BP's that she recorded at home: 144/55, 152/89, 158/86, 159/84, 171/97, 175/98, 173/94 We did check her cuff to ours today and her cuff reading was the same as ours so we know it is working properly. Per Dr. Martins-- start back on lisinopril 10mg at bedtime and f/u in 3 months. Continue on amlodipine and labetalol Assessment & Plan (02/26/2019 12:54 PM ORTHOTIC PRACTITIONER): Her blood pressure medications were adjusted recently. Blood pressure today is acceptable, but she may have to resume lisinopril at some point in the future once she has completely recovered from her cough and her dizziness is completely gone. Assessment & Plan (02/15/2019 8:07 AM ORTHOTIC PRACTITIONER): Will continue to hold diuretics given patient c/o dizziness. We will however, resume norvasc as BP is rising. She will follow up again in 2 weeks with blood pressure log for further evaluation. Type 2 diabetes mellitus 06/26/2013 Overview (05/17/2016): DMII WO CMP NT ST UNCNTR Assessment & Plan (03/10/2019 3:43 PM ORTHOTIC PRACTITIONER): Pt has brought her recorded BS readings--167, 191, 193, 136, 190, 187, 194, 213, 186, 194. She states she checks both her BP and her BS's at the same time everyday between the hours of 10am-12pm. Consulted Dr. Martins regarding this, he suggests starting Januvia 50mg daily, and f/u 3 months. Pt has been instructed to keep checking both BP and BS daily and to call us if numbers are dipping too low. Has regular appt with DR. MACHADO in May. Continue on regular diabetic meds --amaryl and metformin Assessment & Plan (02/26/2019 12:55 PM ORTHOTIC PRACTITIONER): Diabetes is pretty well controlled. She will continue current therapy and follow-up as scheduled for her annual in May. Lab Results Component Value Date HGBA1C 6.9 (H) 02/12/2019 Multinodular goiter 05/12/2012 Overview (05/24/2022): 1. STATUS POST RIGHT THYROIDECTOMY. 2. MULTINODULAR GOITER IN NORMAL SIZE LEFT THYROID LOBE WITHOUT WELL DEFINED MASS WARRANTING BIOPSY. Interpreting Physician: ELIEL RAYGOZA M.D. Read on: May 13 2012 3:23P Transcribed by: rubia On: May 13 2012 4:56P Approved Electronically by: ELIEL RAYGOZA M.D. on: May 14 2012 6:24A Ordering DR: DR MALKA VYAS Resolved Problems Problem Noted Date Diagnosed Date Resolved Date Fall in bathtub 01/17/2023 05/07/2024 Assessment & Plan (01/17/2023 3:17 PM ORTHOTIC PRACTITIONER): Fall 4 days ago, has standing shower with small ledge and shower chair, no staffing manager in bottom. Slid and landed on floor between wall or shower and toilet. Went to ER right after imaging unremarkable except known fracture of humerus. C/o Pain mostly in R hip and thigh. Tenderness and mildly decreased ROM as noted above. Likley muscular in nature. Continue visits with PT as scheduled. Advised to take one ES tylenol with an immediate release Tylenol every 8 hours as needed. Encouraged aspercreme with lidocaine patches. Heat/ice as tolerated. Continue to use walker to avoid further falls. Discussed at home fall precautions with her son as well. Right leg pain 01/17/2023 05/07/2024 Assessment & Plan (01/26/2024 9:24 PM ORTHOTIC PRACTITIONER): Acute worse in the last 2 weeks. Seen at 2 days ago and diagnosed with shingles in L3 distribution to right anterior medial thigh.-finish valtrex as rxd. Add Tylenol PRN. Heat/ice as tolerated. Topical voltaren gel if needed. Assessment & Plan (01/17/2023 3:17 PM ORTHOTIC PRACTITIONER): Fall 4 days ago, has standing shower with small ledge and shower chair, no staffing manager in bottom. Slid and landed on floor between wall or shower and toilet. Went to ER right after imaging unremarkable except known fracture of humerus. C/o Pain mostly in R hip and thigh. Tenderness and mildly decreased ROM as noted above. Likley muscular in nature. Continue visits with PT as scheduled. Advised to take one ES tylenol with an immediate release Tylenol every 8 hours as needed. Encouraged aspercreme with lidocaine patches. Heat/ice as tolerated. Continue to use walker to avoid further falls. Discussed at home fall precautions with her son as well. Skin lesion of face 08/26/2022 01/26/20 Assessment & Plan (08/26/2022 9:23 AM CDT): Physical exam as documented above, see HPI for pertinent history details. Patient concerned about skin lesion, as has had cancerous lesions removed. Offered dermatology referral. Patient choosing to wait and have lesion re-evaluated at November appt with Dr. Chance. Lower respiratory tract infection 08/05/2022 01/26/2024 Assessment & Plan (08/05/2022 8:43 AM CDT): URI symptoms for 8 weeks. Tested negative for COVID and FLU at last week. Z pack and prednisone burst with only mild relief. Rare expiratory wheezes and rhonchi in RLL. Will repeat CXR to r/o PNA. Given length of symptoms will treat for bacteria with Doxycycline as directed. Use OTC meds as needed for cough. Discussed mucinex to help thin mucous. Tylenol/Ibuprofen as needed for pain. Increase fluids (water) Cool mist humidifier at night Use sinus rinses to help flush bacteria and help with congestion. Encouraged honey, marshmallows, or chloraseptic to help coat throat. Call with any worsening or persistent symptoms. ADDENDUM: CXR was clear Right-sided chest wall pain 03/04/2022 05/24/2022 Assessment & Plan (03/04/2022 2:07 PM ORTHOTIC PRACTITIONER): Acute problem, present times about 2.5 weeks s/p fall Physical examination as documented - no signs/symptoms of serious illness noted Suspect MSK etiology, likely contusion vs fracture Recommended imaging and pain management at this time - patient agreeable to plan Orders for AMS STAFF to arrange CXR - chest wall pain, rule out fracture, right posterior chest wall Xray of lumbar spine - low back pain, rule out fracture Orders for Fanny Torrez to arrange Continue pain medications as ordered Consider adding topical OTC Voltaren gel Consider adding OTC Salonpas patch or Aspercreme to regimen Rest as needed Avoid painful movements Continue monitoring symptoms - report persistent or worsening symptoms to the office or go to ER Office to follow up after receiving Xray results Follow up as scheduled with Dr. Chance or sooner if necessary Dry skin dermatitis 08/09/2021 05/25/19 Assessment & Plan (08/09/2021 10:03 AM CDT): Patient skin noted to be dry and flaky. Encouraged good hydration with water, unscented gentle soaps and moisturizing creams. Neck swelling 06/30/2020 01/15/2021 DDD (degenerative disc disease), lumbar 05/30/2020 05/24/2022 Compression fracture of T12 vertebra 05/30/2020 01/15/2021 Acute left-sided low back pa in without sciatica 05/02/2020 05/24/2022 Assessment & Plan (03/04/2022 2:07 PM ORTHOTIC PRACTITIONER): Acute problem, present times about 2.5 weeks s/p fall Physical examination as documented - no signs/symptoms of serious illness noted Suspect MSK etiology, likely contusion vs fracture Recommended imaging and pain management at this time - patient agreeable to plan Orders for AMS STAFF to arrange CXR - chest wall pain, rule out fracture, right posterior chest wall Xray of lumbar spine - low back pain, rule out fracture Orders for Fanny Torrez to arrange Continue pain medications as ordered Consider adding topical OTC Voltaren gel Consider adding OTC Salonpas patch or Aspercreme to regimen Rest as needed Avoid painful movements Continue monitoring symptoms - report persistent or worsening symptoms to the office or go to ER Office to follow up after receiving Xray results Follow up as scheduled with Dr. Chance or sooner if necessary Closed nondisplaced fracture of seventh cervical vertebra with routine healing 04/27/2020 0 05/24/2022 Fall 04/20/2020 11/28/2021 Assessment & Plan (08/09/2021 10:44 AM CDT): Patient presents post fall that resulted in her hitting the back of her head and landing on her backside. Fall appears mechanical and was not associated with chest pain, shortness of breath, dizziness, palpitations or loss of consciousness. She had CT of the head and neck post fall that were negative for acute findings. She has some stiffness and soreness in bilateral UE and chest post fall. Offered imaging, but patient declined. She declined PT as well. She will call next week should pain persist or worsen. Assessment & Plan (04/20/2020 3:32 PM ORTHOTIC PRACTITIONER): Patient presents s/p fall where she tripped over a rug and fell backward, hitting her head, left shoulder and back. Since the fall she has had some headaches and feels more off balance. On exam no acute neurologic findings noted and ROM normal. She denies any loss of consciousness with fall. We will do CT of the head and neck given the pain and feelings of being off balance to r/o fracture of C-spine and any acute bleed in the head. We will also xray left shoulder and back as she has pain and tenderness in those areas. She will continue tylenol for pain and will send rx for tramadol. She was instructed to use her cane at all times. If no acute findings will refer for physical therapy. She will follow up with Dr. Chance as upcoming visit scheduled. She is to call with any new issues or concerns. SOB (shortness of breath) 12/21/2019 Overview (03/30/2020): 03/30/20: Spirometry shows proportional decrease in FEV1 and FVC suggestive of restrictive pattern. No response to bronchodilators. Lung volumes show mild restrictive ventilatory defect. Gas exchange capacity is reduced indicating lung parenchymal/vascular abnormalities, clinical correlation is recommended. Assessment & Plan (08/27/2022 8:15 AM CDT): Improving with use of Symbicort. Lungs clear today. SP02 98% on RA. Patient verbalizes improvement in cough and SOB. Plan to continue symbicort bid at this time. Patient should also continue omeprazole and other meds as previously directed. Follow-up with Dr. Chance at regular appt on 12/02/22 to re-evaluate. If concerns between now and then, call for earlier appt. Assessment & Plan (08/18/2022 3:33 PM CDT): Persistent symptoms despite use of antibiotics and steroids. No acute cardiac symptoms. Rare expiratory wheezing on exam, sating 98% on RA. Likely worsening asthma/COPD at this time. Will rx symbicort as directed. Continue albuterol PRN. Will change famotidine to omeprazole in case there is a GERD/hiatal hernia component. Will likely need PFTs in the near future. Follow in 2 weeks. Assessment & Plan (08/05/2022 8:44 AM CDT): Likely due to current URI symptoms, see plan above. Assessment & Plan (12/21/2019 12:48 PM ORTHOTIC PRACTITIONER): Patient is reporting feelings of being SOB with minimal activity, there is concern for possible underlying pneumonia given her noted leukocytosis, SOB, fatigue and reports of low grade fevers for her. She is also on immunosuppressive therapy that puts her at increased risk for underlying bacterial infection. She will be started on antibiotic therapy and return in one week or sooner if needed. COVID testing negative. Upper respiratory tract infection 12/21/2019 01/15/2021 Assessment & Plan (12/21/2019 12:47 PM ORTHOTIC PRACTITIONER): Patient reports low grade fevers, weakness, fatigue and shortness or breath most consistent with URI. There is concern however, for progression to pneumonia and repeat CXR and CBC will be completed. Will begin antibiotic therapy with azithromycin. Patient noted to have reported diarrhea with clarithromycin so will monitor closely. She will return in one week or sooner if needed. 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 Most likely suggestive of underlying bacterial infection. Will repeat CBC to verify improvement or change. Abdominal distension 09/08/2019 020 Lactose intolerance 08/11/2019 01/16/20 21 Overview (08/11/2019): Attempting milk free diet July 2019 to eliminate diarrhea Memory difficulties 08/11/2019 01/16/20 21 Overview (08/11/2019): Trouble finding words, further evaluation after better diabetic control Dizziness 02/09/2019 05/07/2024 Assessment & Plan (01/26/2024 9:37 PM ORTHOTIC PRACTITIONER): Acute, intermittent in the last 2 weeks. See HPI for details. Orthostatic BP negative in office today, HR regular without murmur. Mild mood swings, no neurological deficits on exam, vitals stable. CMP, CBC from today unremarkable. UA and KUB from last week at [facility] unremarkable. Likely mutlifactorial including mood, pain, constipation, arthritis. Push fluids, see separate plans above. Assessment & Plan (02/26/2019 12:54 PM ORTHOTIC PRACTITIONER): She was having some dizziness with orthostatic changes in position. It was more of an unsteady feeling. Medication side effects were suspected so lisinopril/HCT was discontinued. She is feeling improved, still has some mild unsteady feelings. Blood pressure is in a reasonable range for now. We will continue current therapy and have her follow-up in May. Lab Results Component Value Date GLUCOSE 130 (H) 02/12/2019 CALCIUM 9.3 02/12/2019 SODIUM 138 02/12/2019 POTASSIUM 4.2 02/12/2019 CO2 26 02/12/2019 CHLORIDE 103 02/12/2019 BUNSER 17 02/12/2019 CREATININE 0.65 02/12/2019 Lab Results Component Value Date WBC 11.4 (H) 02/05/2019 HGB 11.4 (L) 02/05/2019 HCT 35.1 02/05/2019 MCV 83.6 02/05/2019 LABPLAT 338 02/05/2019 Assessment & Plan (02/15/2019 8:08 AM ORTHOTIC PRACTITIONER): It is improving and no further episodes of orthostatic changes noted on exam. She was encouraged to continue to avoid rapid position changes. She was also instructed to increase her fluid intake as there is concern for possible dehydration with her recent illness. She will follow up with physician in 2 weeks to further address this issue. We will also check CBC as she reports some blood in stool however, fobt was negative, but hemorrhoids identified. Will also check BMP to r/o any electrolyte disturbance as cause of underlying dizziness. Assessment & Plan (02/09/2019 12:29 PM ORTHOTIC PRACTITIONER): With documented orthostasis with a BP of 132/60 sitting to 110/56 standing. We will hold her diuretics at this time along with her norvasc. She will monitor her BP at home and return on Friday for a recheck. She was instructed to increase her water intake and to go to the ED with any worsening dizziness. Cough 02/04/2019 01/10/2020 Assessment & Plan (03/10/2019 3:36 PM ORTHOTIC PRACTITIONER): Pt still complains of a nagging cough. She states it has never really gone away. Last chest x-ray in January was negative for infectious process, but did mention COPD, and this could be a part of that. Will continue to use her inhaler and perles PRN. Assessment & Plan (02/26/2019 12:52 PM ORTHOTIC PRACTITIONER): Symptoms started several weeks ago or even before that. She was diagnosed with a pulmonary embolism in early January and was placed on Eliquis. Shortly afterwards, she had cough and wheezing. She has been treated with bronchodilators, antibiotics and oral steroids. She is finally starting to feel better. Today, breathing is unlabored and oxygen saturation is normal. She thought the Tessalon helped her cough, so we will refill that. We also recommended some [id number] plain Mucinex. Follow-up as scheduled in May or sooner if needed. Immunocompromised 01/29/2019 09/08/2023 Overview (05/24/2022): This condition related to medicines used for her rheumatoid arthritis including Orencia and Cimzia Assessment & Plan (01/29/2019 12:31 PM ORTHOTIC PRACTITIONER): Immunocompromised due to rheumatoid meds. Will treat with antibiotics and prednisone for presumable left lingular pneumonia with wheezing. Bilateral wheezing 01/29/2019 0 Assessment & Plan (02/09/2019 12:24 PM ORTHOTIC PRACTITIONER): She has finished her course of antibiotics and steroids and her wheezing has resolved. She is still using her nebulizer prn but has decreased down to twice a day. She has repeat xray scheduled for 6 weeks post initial treatment and will await results Assessment & Plan (02/05/2019 12:21 PM ORTHOTIC PRACTITIONER): Persistent bilateral wheezing heard on expiration in all lung adames. Consulted with Dr. Reddy and it is ok to continue on the prednisone for another 5 days. Will also give her a nebulizer treatment now. F/u with [facility] next friday to see if wheezing has resolved. She will continue to use her albuterol inhaler at home PRN SOB/wheezing. I will refill her tessalon perles at her request. Assessment & Plan (01/29/2019 11:47 AM ORTHOTIC PRACTITIONER): Chest x-ray today was reviewed with Dr. MACHADO: possible left lingular pneumonia. Will treat with cefdinir 300mg x 7 days, and z-shyann for home. Will also give a boost of prednisone 20mg x 5 days. I will also give her an albuterol inhaler. I have instructed her to how to use it, and also told her to have the pharmacist instruct her after she picks it up from the pharmacy. She will f/u with me next Monday 02/05 for a recheck. She will get a repeat chest x-ray in 6 weeks to check for resolution. Single subsegmental pulmonar y embolism without acute cor pulmonale (CMS/HCC) 01/12/2019 Overview (02/26/2019): V/Q scan, 01/12/19, AM[facility]: Single moderate subsegmental posterior right upper lobe perfusion defect no discrete focal ventilation defect diffuse retention throughout both lungs. [place] to represent intermediate probability for pulmonary embolism. Assessment & Plan (02/26/2019 12:55 PM ORTHOTIC PRACTITIONER): She is tolerating Eliquis with no physical evidence of increased bruising or bleeding. Continue same. Obesity (BMI 30-39.9) 01/11/20192022 Bleeding hemorrhoids 05/06/2018 020 Assessment & Plan (02/15/2019 8:11 AM ORTHOTIC PRACTITIONER): Pt reports blood noted on toilet paper recently. A FOBT was done and was negative. Patient had colonoscopy in 10/2018 with the following results: Hemorrhoids were found on perianal exam. Multiple small and large-mouthed diverticula were found in the sigmoid colon, descending colon and hepatic flexure. A repeat CBC will be done to r/o any anemia. If persistent will need to consider f/u with GI. Discussed with patient that if she notes blood in the toilet or stool she will need to go to ED for further evaluation. 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 Arthritis 05/02/2017 01/10/2020 Insomnia, persistent 05/02/2017 020 History of skin cancer 12/24/201605/02 Constipation due to opioid therapy 09/17/2016 01/15/2021 Cervicalgia 09/16/2016 01/15/2021 Subacromial impingement 09/16/201604/11 Chronic pain disorder 09/16/20162022 Chronic headache 06/26/2013 01/15/2021 Overview (08/27/2019): Chronic headaches, cervical disc disease confirmed a neck MRI August 2019 Rhinitis 06/26/2013 01/15/2021 Overview (05/16/2016): Rhinitis Seasonal allergies Overview (05/01/2021): Allergies, seasonal; Comments: RITESH 08/31/2013 - Immunizations Immunization Administration Dates Next Due Influenza, Quad, Adjuvantate d, Intramuscular 03/24/2023 Influenza, Quadrivalent, Hig h Dose, Preservative Free, Intrr 12/02/2022,11/28/2021,12/01/2020 Influenza, Quadrivalent, Spl it, Intramuscular 12/26/2016 Influenza, Quadrivalent, Spl it, Preservative Free, Intramuscular 01/10/2020 Influenza, Trivalent, High D ose, Split, Preservative Free, Intramuscular 12/23/2018,11/05/2017 Influenza, Trivalent, IM (MDV) 5,12/01/2013,12/02/2012,12/29,11/15/2008 Influenza, Unspecified 09/28/2023,12/11/2020 Pfizer SARS-CoV-2 Monovalent Vaccination (12+ Yrs) PURPLE 10/13/2020,04/05/2020,03/15/2020 Pneumococcal Conjugate PCV 13 04/11/2014 Pneumococcal Polysaccharide PPV23 09/04/2015,,04/17/2009 RSV Vaccine, Pref, Recombina nt, Subunit, Adjuvanted, PF, IM (Arexvy) 06/11/2023 Tdap 02/08/2011 ZOSTER Recombinant 10/26/2018,08/26/2018 Social History Tobacco Use Types Packs/Day Years Used Date Smoking Tobacco: Former Smokeless Tobacco: Never Tobacco Cessation:Counseling Given: Not Answered Alcohol Use Standard Drinks/Week Comments Not Currently 0 (1 standard drink = 0.6 oz pur e alcohol) [facility] gestigonities Answer Date Recorded In the past 12 months has [employer], gas, oil, or water [employer] threatened to shut off services in your [...] week 02/27/2024 How often do you attend [facility] or [facility] services? Never 02/27/2024 Do you belong to any clubs o r organizations such as congregational groups, unions, fraternal or athletic groups, or [...] any time in the past 12 [facility], were you homeless or living in a jail (including now)? No 02/27/2024 Personal Safety Answer [...] on file Legal Sex Female 10:51 AM ORTHOTIC PRACTITIONER Gender Identity Not on file Sexual Orientation Not on file Occupation Industry Job Start Date Job End Date retired Not on file Not on file Not on file Last Filed Vital Signs Vital Sign Reading Time Taken Comments Blood Pressure 109/45 05/07/2024 2:46 PM CDT Pulse 68 05/07/2024 2:18 PM CDT Temperature 36.3 C (97.3 F) 05/07/2024 2:18 PM CDT Respiratory Rate 20 05/07/2024 2:18 PM CDT Oxygen Saturation 96% 05/07/2024 2:18 PM CDT Inhaled Oxygen Concentration - - Weight 61.3 kg (135 lb 3.2 oz) 04/30/2024 1:17 P M CDT Height 165.1 cm (5' 5 ) 05/07/2024 2:18 PM CDT Body Mass Index 22.5 04/30/2024 1:17 PM CDT Plan of Treatment Not on file Medical Devices Implanted Type Area Maxillofacial Prosthodontist Device Identifier Shelf Expiration Date Model / Serial / Lot [id number] Vertaplex Hv Autoplex Without Needle Delivery System Kit Bone - [id number] Implanted:Qty: 1 on 06/14/2020 by Crescencio Peterson MD at [facility] 07/11/2021 [id number] / / Procedures Procedure Name Priority Date/Time Associated Diagnosis Comments SCAN - LABS 05/10/2024 SCAN - RADIOLOGY/IMAGING 05/10/2024 FL REMOVAL IMPACTED CERUMEN INSTRUMENTATION UNILAT Routine 05/07/2024 2:00 PM CDT Pneumonia due to infectious organism, unspecified laterality, unspecified part of lung XR CHEST PA LATERAL 2 VIEWS Schedule PATTIE, Read PATTIE (Appt Today, Awaiting Results) 04/30/2024 1:10 PM CDT Expiratory wheezing POC INFLUENZA A/B, COVID-19 ANTIGEN Routine 04/30/2024 1:05 PM CDT Pneumonia due to infectious organism, unspecified laterality, unspecified part of lung NM PULMONARY VENTILATION AND PERFUSION IMAGING Schedule PATTIE, Read PATTIE (Appt Today, Awaiting Results) 04/16/2024 11:27 AM ORTHOTIC PRACTITIONER Elevated d-dimer Shortness of breath XR CHEST PA LATERAL 2 VIEWS Schedule PATTIE, Read PATTIE (Appt Today, Awaiting Results) 04/16/2024 11:19 AM ORTHOTIC PRACTITIONER Elevated d-dimer Shortness of breath SCAN - LABS 04/12/2024 SCAN - LABS 03/05/2024 POCT GLUCOSE DEVICE Routine 03/02/2024 12:31 PM ORTHOTIC PRACTITIONER COVID-19 CORONAVIRUS RNA Routine 03/02/2024 11:30 AM ORTHOTIC PRACTITIONER POCT GLUCOSE DEVICE Routine 03/02/2024 9 :53 AM ORTHOTIC PRACTITIONER POCT GLUCOSE DEVICE Routine 03/02/2024 2 :03 AM ORTHOTIC PRACTITIONER POCT GLUCOSE DEVICE Routine 03/01/2024 7 :27 PM ORTHOTIC PRACTITIONER POCT GLUCOSE DEVICE Routine 03/01/2024 4 :48 PM ORTHOTIC PRACTITIONER POCT GLUCOSE DEVICE Routine 03/01/2024 11:10 AM ORTHOTIC PRACTITIONER POCT GLUCOSE DEVICE Routine 03/01/2024 7 :40 AM ORTHOTIC PRACTITIONER POCT GLUCOSE DEVICE Routine 03/01/2024 3 :16 AM ORTHOTIC PRACTITIONER POCT GLUCOSE DEVICE Routine 02/29/2024 7 :30 PM ORTHOTIC PRACTITIONER POCT GLUCOSE DEVICE Routine 02/29/2024 4 :31 PM ORTHOTIC PRACTITIONER POCT GLUCOSE DEVICE Routine 02/29/2024 11:52 AM ORTHOTIC PRACTITIONER POCT GLUCOSE DEVICE Routine 02/29/2024 8 :55 AM ORTHOTIC PRACTITIONER POCT GLUCOSE DEVICE Routine 02/29/2024 2 :11 AM ORTHOTIC PRACTITIONER POCT GLUCOSE DEVICE Routine 02/28/2024 8 :36 PM ORTHOTIC PRACTITIONER POCT GLUCOSE DEVICE Routine 02/28/2024 4 :34 PM ORTHOTIC PRACTITIONER POCT GLUCOSE DEVICE Routine 02/28/2024 12:03 PM ORTHOTIC PRACTITIONER POCT GLUCOSE DEVICE Routine 02/28/2024 7 :56 AM ORTHOTIC PRACTITIONER POCT GLUCOSE DEVICE Routine 02/28/2024 1 :57 AM ORTHOTIC PRACTITIONER EGFR Routine 02/28/2024 1:38 AM ORTHOTIC PRACTITIONER DIFFERENTIAL AUTO Routine 02/28/2024 1:3 8 AM ORTHOTIC PRACTITIONER PHOSPHORUS Routine 02/28/2024 1:38 AM ORTHOTIC PRACTITIONER MAGNESIUM Routine 02/28/2024 1:38 AM ORTHOTIC PRACTITIONER COMPREHENSIVE METABOLIC PANEL Routine 02/28/2024 1:38 AM ORTHOTIC PRACTITIONER CBC WITH AUTO DIFFERENTIAL Routine 02/28/2024 1:38 AM ORTHOTIC PRACTITIONER POCT GLUCOSE DEVICE Routine 02/27/2024 8 :43 PM ORTHOTIC PRACTITIONER POCT GLUCOSE DEVICE Routine 02/27/2024 5 :00 PM ORTHOTIC PRACTITIONER POCT GLUCOSE DEVICE Routine 02/27/2024 12:01 PM ORTHOTIC PRACTITIONER POCT GLUCOSE DEVICE Routine 02/27/2024 7 :59 AM ORTHOTIC PRACTITIONER EGFR Routine 02/27/2024 4:34 AM ORTHOTIC PRACTITIONER DIFFERENTIAL AUTO Routine 02/27/2024 4:3 4 AM ORTHOTIC PRACTITIONER PHOSPHORUS Routine 02/27/2024 4:34 AM ORTHOTIC PRACTITIONER MAGNESIUM Routine 02/27/2024 4:34 AM ORTHOTIC PRACTITIONER COMPREHENSIVE METABOLIC PANEL Routine 02/27/2024 4:34 AM ORTHOTIC PRACTITIONER CBC WITH AUTO DIFFERENTIAL Routine 02/27/2024 4:34 AM ORTHOTIC PRACTITIONER POCT GLUCOSE DEVICE Routine 02/27/2024 2 :22 AM ORTHOTIC PRACTITIONER POCT GLUCOSE DEVICE Routine 02/26/2024 9 :05 PM ORTHOTIC PRACTITIONER POCT GLUCOSE DEVICE Routine 02/26/2024 3 :48 PM ORTHOTIC PRACTITIONER POCT GLUCOSE DEVICE Routine 02/26/2024 11:21 AM ORTHOTIC PRACTITIONER POCT GLUCOSE DEVICE Routine 02/26/2024 7 :50 AM ORTHOTIC PRACTITIONER POCT GLUCOSE DEVICE Routine 02/26/2024 2 :10 AM ORTHOTIC PRACTITIONER EGFR Routine 02/26/2024 2:01 AM ORTHOTIC PRACTITIONER DIFFERENTIAL AUTO Routine 02/26/2024 2:0 1 AM ORTHOTIC PRACTITIONER PHOSPHORUS Routine 02/26/2024 2:01 AM ORTHOTIC PRACTITIONER MAGNESIUM Routine 02/26/2024 2:01 AM ORTHOTIC PRACTITIONER COMPREHENSIVE METABOLIC PANEL Routine 02/26/2024 2:01 AM ORTHOTIC PRACTITIONER CBC WITH AUTO DIFFERENTIAL Routine 02/26/2024 2:01 AM ORTHOTIC PRACTITIONER POCT GLUCOSE DEVICE Routine 02/25/2024 8 :51 PM ORTHOTIC PRACTITIONER POCT GLUCOSE DEVICE Routine 02/25/2024 4 :27 PM ORTHOTIC PRACTITIONER XR FOOT RIGHT 3 OR MORE VIEWS IP Routine 02/25/2024 3:54 PM ORTHOTIC PRACTITIONER POCT GLUCOSE DEVICE Routine 02/25/2024 12:48 PM ORTHOTIC PRACTITIONER POCT GLUCOSE DEVICE Routine 02/25/2024 8 :50 AM ORTHOTIC PRACTITIONER EGFR Routine 02/25/2024 4:54 AM ORTHOTIC PRACTITIONER DIFFERENTIAL AUTO Routine 02/25/2024 4:5 4 AM ORTHOTIC PRACTITIONER MAGNESIUM Routine 02/25/2024 4:54 AM ORTHOTIC PRACTITIONER COMPREHENSIVE METABOLIC PANEL Routine 02/25/2024 4:54 AM ORTHOTIC PRACTITIONER CBC WITH AUTO DIFFERENTIAL Routine 02/25/2024 4:54 AM ORTHOTIC PRACTITIONER POCT GLUCOSE DEVICE Routine 02/24/2024 11:17 PM ORTHOTIC PRACTITIONER INFLUENZA A/B, RSV, AND COVID-19 PCR Routine 02/24/2024 9:28 PM ORTHOTIC PRACTITIONER XR CHEST 1 VIEW ED 02/24/2024 6:[address] CERVICAL SPINE WO CONTRAST ED 02/24/2024 5:[address] HEAD WO CONTRAST ED 02/24/2024 5 :54 PM ORTHOTIC PRACTITIONER EGFR STAT 02/24/2024 3:52 PM ORTHOTIC PRACTITIONER DIFFERENTIAL AUTO STAT 02/24/2024 3:5 2 PM ORTHOTIC PRACTITIONER COMPREHENSIVE METABOLIC PANEL STAT 02/24/2024 3:52 PM ORTHOTIC PRACTITIONER CBC WITH AUTO DIFFERENTIAL STAT 02/24/2024 3:52 PM ORTHOTIC PRACTITIONER ECG 12-LEAD STAT 02/24/2024 3:44 PM ORTHOTIC PRACTITIONER XR HIP RIGHT W PELVIS 2 OR 3 VIEWS ED 02/24/2024 3:22 PM ORTHOTIC PRACTITIONER HM DIABETES FOOT EXAM Routine 01/06/2024 2:56 PM ORTHOTIC PRACTITIONER ALBUMIN CREATININE RATIO, URINE Routine 09/04/2023 11:40 AM CDT Hypertension complicating diabetes (HCC) Type 2 diabetes mellitus without complication, without long-term current use of insulin (HCC) HEMOGLOBIN A1C Routine 09/01/2023 12:34 PM CDT Hypertension complicating diabetes (HCC) Type 2 diabetes mellitus without complication, without long-term current use of insulin (HCC) LIPID PANEL Routine 10/23/2017 10:06 AM CDT Benign hypertension from Last 3 Months or Most Recently Relevant to Health Maintenance Results * SCAN - RADIOLOGY/IMAGING (05/10/2024) Anatomical Region Laterality Modality Other us Elsy Chance MD Final Resu lt * SCAN - LABS (05/10/2024) us Provider Scanning Final Result * FL REMOVAL IMPACTED CERUMEN INSTRUMENTATION UNILAT (05/07/2024 2:00 PM CDT) Narrative Elsy Chance MD - 05/07/2024 2:00 PM CDT Elsy Chance MD 05/09/2024 11:25 PM Ear Cerumen Removal Performed by: Lisa Hanson NP Authorized by: Lisa Hanson NP Consent Given by: Patient Verbal consent obtained: Yes Location: L ear L ear cerumen impacted?: Yes L ear method of removal: Instrumentation L ear instrumentation: Curette L ear magnification: Otoscope Inspection: Bleeding and TM intact Hearing quality: Improved us Lisa Hanson NP IN CLINIC/BEDSIDE ORDERABLE S Final Result * XR Chest Pa Lateral 2 Views (04/30/2024 1:10 PM CDT) Anatomical Region Laterality Modality Body, Chest N/A Computed Radiogr aphy 04/30/2024 6:48 PM CDT Narrative 04/30/2024 6:49 PM CDT EXAM DESCRIPTION: XR CHEST PA LATERAL 2 VIEWS REASON FOR STUDY: wheezing Cough x 1 month Ex-smoker S.O.B. No chest surgery TECHNIQUE: Frontal and lateral radiographic views of the chest were acquired. COMPARISON: 04/16/2024 FINDINGS: LUNGS/PLEURA: There is no focal infiltrate or evidence of pneumothorax. No significant pleural effusion. Mild elevation right hemidiaphragm. HEART/MEDIASTINUM: The heart size is normal. Normal mediastinal and hilar contours. LINES/TUBES: None. BONES: No acute findings. Vertebroplasty changes lower thoracic spine. OTHER: Large hiatal hernia. IMPRESSION: No acute cardiopulmonary abnormality. THIS IS AN ELECTRONICALLY VERIFIED FINAL REPORT 04/30/2024 6:49 PM - Electronically signed by Winston Madera M.D. RW: LINDA Report ID: [id number] Reading Location: [id number] Procedure Note Winston Madera MD - 04/30/2024 EXAM DESCRIPTION: XR CHEST PA LATERAL 2 VIEWS REASON FOR STUDY: wheezing Cough x 1 month Ex-smoker S.O.B. No chest surgery TECHNIQUE: Frontal and lateral radiographic views of the chest wereacquired. COMPARISON: 04/16/2024 FINDINGS: LUNGS/PLEURA: There is no focal infiltrate or evidence of pneumothorax.No significant pleural effusion. Mild elevation right hemidiaphragm. HEART/MEDIASTINUM: The heart size is normal. Normal mediastinal and hilar contours. LINES/TUBES: None. BONES: No acute findings. Vertebroplasty changes lower thoracic spine. OTHER: Large hiatal hernia. IMPRESSION: No acute cardiopulmonary abnormality. THIS IS AN ELECTRONICALLY VERIFIED FINAL REPORT 04/30/2024 6:49 PM - Electronically signed by Winston Madera M.D. RW: LINDA Report ID: [id number] Reading Location: [id number] Elsy Chance MD IMG XR PROCEDURES Final Re sult * POC Influenza A/B, COVID-19 antigen (04/30/2024 1:05 PM CDT) Influenza A Ag, POC Negative Negative [facility] FM Influenza B Ag, POC Negative Negative [facility] FM COVID-19 Ag POC Presumptive Negative Presumptive Negative, Invalid AMS [facility] Nasal 04/30/2024 1:05 PM CDT us Lisa Hanson PRINCIPAL ENGINEER POINT OF CARE TEST ORDERABL ES Final Result [facility] [address] [place] [id number] * NM Pulmonary Ventilation and Perfusion Imaging (04/16/2024 11:27 AM ORTHOTIC PRACTITIONER) Anatomical Region Laterality Modality Body N/A Nuclear Medicine 04/16/2024 11:3 2 AM ORTHOTIC PRACTITIONER Narrative 04/16/2024 11:33 AM ORTHOTIC PRACTITIONER EXAM DESCRIPTION: NM PULMONARY VENTILATION AND PERFUSION IMAGING REASON FOR STUDY: Elevated D-Dimer . R/o PE RADIOPHARMACEUTICAL: 10 mCi Xe-133 gas by inhalation and 5.3 mCi Tc-99m MAA via a left antecubital IV site. COMPARISON: 01/12/2019. Correlation is made with the chest radiograph from today. TECHNIQUE: Standard ventilation perfusion scintigrams were obtained. FINDINGS: There is air trapping in the left base. No significant segmental or subsegmental perfusion defects. There is a linear nonsegmental area of diminished activity over the right lung. This corresponds to the right shoulder arthroplasty. Areas of diminished activity in the bases on the posterior projection unchanged from the prior study. No new segmental or subsegmental perfusion defect. IMPRESSION: Low probability for acute pulmonary embolism. THIS IS AN ELECTRONICALLY VERIFIED FINAL REPORT 04/16/2024 11:33 AM - Electronically signed by Alejandro Wallace M.D. CH: AMIE Report ID: [id number] Reading Location: [id number] Procedure Note Alejandro Wallace Jr., MD - 04/16/2024 EXAM DESCRIPTION: NM PULMONARY VENTILATION AND PERFUSION IMAGING REASON FOR STUDY: Elevated D-Dimer . R/o PE RADIOPHARMACEUTICAL: 10 mCi Xe-133 gas by inhalation and 5.3 mCi Tc-99mMAA via a left antecubital IV site. COMPARISON: 01/12/2019. Correlation is made with the chest radiographfrom today. TECHNIQUE: Standard ventilation perfusion scintigrams were obtained. FINDINGS: There is air trapping in the left base. No significant segmental or subsegmental perfusion defects. There is a linear nonsegmental area of diminished activity over the right lung. This corresponds to the right shoulder arthroplasty. Areas of diminished activity in the bases on the posterior projection unchanged from the prior study. No new segmental or subsegmental perfusion defect. IMPRESSION: Low probability for acute pulmonary embolism. THIS IS AN ELECTRONICALLY VERIFIED FINAL REPORT 04/16/2024 11:33 AM - Electronically signed by Alejandro Wallace M.D. CH: Report ID: [id number] Reading Location: [place] [id number] us Elsy Chance MD IMG NM PROCEDURES Final Re sult * XR Chest PA Lateral 2 Views (04/16/2024 11:19 AM ORTHOTIC PRACTITIONER) Anatomical Region Laterality Modality Body, Chest N/A Computed Radiogr aphy 04/16/2024 11:3 3 AM ORTHOTIC PRACTITIONER Narrative 04/16/2024 11:35 AM ORTHOTIC PRACTITIONER EXAM DESCRIPTION: XR CHEST PA LATERAL 2 VIEWS REASON FOR STUDY: Elevated d-dimer of breath. R/o PE Post Nuc Med test TECHNIQUE: Frontal and lateral radiographic view(s) of the chest. COMPARISON: 02/24/2024. FINDINGS: LUNGS: No focal opacity, pleural effusion, or pneumothorax. HEART/MEDIASTINUM: Cardiac silhouette normal in size. Mediastinal and hilar contours appear normal. There is the hiatal hernia with air-fluid level. There is mild elevation right hemidiaphragm. LINES/TUBES: None. BONES: No acute osseous abnormality. Right shoulder arthroplasty noted. Compression fractures lower thoracic and upper lumbar spine with an area of vertebral augmentation. Surgical clips present in the right upper quadrant. IMPRESSION: No evidence of an acute cardiopulmonary abnormality. Hiatal hernia. THIS IS AN ELECTRONICALLY VERIFIED FINAL REPORT 04/16/2024 11:35 AM - Electronically signed by Alejandro Wallace M.D. CH: AMIE Report ID: [id number] Reading Location: [id number] Procedure Note Alejandro Wallace Jr., MD - 04/16/2024 EXAM DESCRIPTION: XR CHEST PA LATERAL 2 VIEWS REASON FOR STUDY: Elevated d-dimer of breath. R/o PE Post Nuc Med test TECHNIQUE: Frontal and lateral radiographic view(s) of the chest. COMPARISON: 02/24/2024. FINDINGS: LUNGS: No focal opacity, pleural effusion, or pneumothorax. HEART/MEDIASTINUM: Cardiac silhouette normal in size. Mediastinal andhilar contours appear normal. There is the hiatal hernia with air-fluid level. There is mild elevation right hemidiaphragm. LINES/TUBES: None. BONES: No acute osseous abnormality. Right shoulder arthroplasty noted. Compression fractures lower thoracic and upper lumbar spine with an areaof vertebral augmentation. Surgical clips present in the right upper quadrant. IMPRESSION: No evidence of an acute cardiopulmonary abnormality. Hiatal hernia. THIS IS AN ELECTRONICALLY VERIFIED FINAL REPORT 04/16/2024 11:35 AM - Electronically signed by Alejandro Wallace M.D. CH: Report ID: [id number] Reading Location: [id number] us Elsy Chance MD IMG XR PROCEDURES Final Re sult * SCAN - LABS (04/12/2024) us Provider Scanning Edited Result - Final * SCAN - LABS (03/05/2024) us Provider Scanning Final Result * POCT glucose (03/02/2024 12:31 PM ORTHOTIC PRACTITIONER) Glucose, POC 135 70 - 199 mg/dL Blood 03/02/2024 12:3 1 PM ORTHOTIC PRACTITIONER 03/02/2024 12:31 PM ORTHOTIC PRACTITIONER us Joana Germain MD LAB POCT ORDERABLES - DEVICE F inal Result [facility] ([place]) 1 [facility] Department [place] [address] * (ABNORMAL) COVID-19 Coronavirus RNA Nasopharyngeal (03/02/2024 11:30 AM ORTHOTIC PRACTITIONER) COVID-19 RNA Positive(A ) Negative Nasopharyngeal 03/02/2024 11 :30 AM ORTHOTIC PRACTITIONER 03/02/2024 11:46 AM ORTHOTIC PRACTITIONER Narrative [facility] - 03/02/2024 12:19 PM ORTHOTIC PRACTITIONER Is the patient experiencing any symptoms consistent with COVID (eg. Fever, cough, shortness of breath)?->No What is the reason for testing?->Screening for post-acute care placement Interpretive data: Testing performed by [facility]. This test is performed using the [employer] Xpert Xpress CoV-2 plus assay. This is a real-time RT-PCR test intended for the qualitative detection of nucleic acid from the SARS-CoV-2. This assay has been cleared by the [place] Food and Drug administration. The performance characteristics have been verified by [facility]. Results must be considered in the clinical context, and a negative result does not rule out infection. Interpretive data last revised 2023. Interpretive data: Testing performed by [facility]. This test is performed using the [employer] Xpert Xpress CoV-2 plus assay. This is a real-time RT-PCR test intended for the qualitative detection of nucleic acid from the SARS-CoV-2. This assay has been cleared by the [place] Food and Drug administration. The performance characteristics have been verified by [facility]. Results must be considered in the clinical context, and a negative result does not rule out infection. Interpretive data last revised 2023. Joana Germain MD LAB MICROBIOLOGY - GENERAL ORD ERABLES Final Result [facility] ([place]) 1 [facility] [employer] [place] [address] * POCT glucose (03/02/2024 9:53 AM ORTHOTIC PRACTITIONER) Glucose, POC 132 70 - 199 mg/dL Blood 03/02/2024 9:53 AM ORTHOTIC PRACTITIONER 03/02/2024 9:53 AM ORTHOTIC PRACTITIONER Joana Germain MD LAB POCT ORDERABLES - DEVICE F inal Result Performing Organization Address City/[facility]/ZIP Co de Phone Number [facility] ([place]) 1 [facility] [place] [employer] [place] [address] * POCT glucose (03/02/2024 2:03 AM ORTHOTIC PRACTITIONER) Glucose, POC 118 70 - 199 mg/dL Blood 03/02/2024 2:03 AM ORTHOTIC PRACTITIONER 03/02/2024 2:03 AM ORTHOTIC PRACTITIONER Mary Kay Vinson MD LAB POCT ORDERABLES - DEVICE Fi nal Result Performing Organization Address City/[facility]/ZIP Co de Phone Number [facility] ([place]) 1 [facility] [place] [employer] [place] [address] * POCT glucose (03/01/2024 7:27 PM ORTHOTIC PRACTITIONER) Glucose, POC 183 70 - 199 mg/dL Blood 03/01/2024 7:27 PM ORTHOTIC PRACTITIONER 03/01/2024 7:27 PM ORTHOTIC PRACTITIONER Mary Kay Vinson MD LAB POCT ORDERABLES - DEVICE Fi nal Result [facility] ([place]) 1 [facility] [place] [employer] [place] [address] * POCT glucose (03/01/2024 4:48 PM ORTHOTIC PRACTITIONER) Glucose, POC 131 70 - 199 mg/dL Blood 03/01/2024 4:48 PM ORTHOTIC PRACTITIONER 03/01/2024 4:48 PM ORTHOTIC PRACTITIONER Mary Kay Vinson MD LAB POCT ORDERABLES - DEVICE Fi nal Result Performing Organization Address City/[facility]/ZIP Co de Phone Number [facility] ([place]) 1 [facility] [employer] [place] [address] * (ABNORMAL) POCT glucose (03/01/2024 11:10 AM ORTHOTIC PRACTITIONER) Glucose, POC 217(H) 70 - 199 mg/dL Blood 03/01/2024 11:1 0 AM ORTHOTIC PRACTITIONER 03/01/2024 11:10 AM ORTHOTIC PRACTITIONER Mary Kay Vinson MD LAB POCT ORDERABLES - DEVICE Fi nal Result Performing Organization Address City/[facility] Co de Phone Number [facility] ([place]) 1 [facility] [place] [employer] [place] [address] * POCT glucose (03/01/2024 7:40 AM ORTHOTIC PRACTITIONER) Glucose, POC 110 70 - 199 mg/dL Blood 03/01/2024 7:40 AM ORTHOTIC PRACTITIONER 03/01/2024 7:40 AM ORTHOTIC PRACTITIONER Mary Kay Vinson MD LAB POCT ORDERABLES - DEVICE Fi nal Result Performing Organization Address City/[facility]/ZIP Co de Phone Number [facility] ([place]) 1 [facility] [employer] [place] [address] * POCT glucose (03/01/2024 3:16 AM ORTHOTIC PRACTITIONER) Glucose, POC 108 70 - 199 mg/dL Blood 03/01/2024 3:16 AM ORTHOTIC PRACTITIONER 03/01/2024 3:16 AM ORTHOTIC PRACTITIONER Mary Kay Vinson MD LAB POCT ORDERABLES - DEVICE Fi nal Result [facility] ([place]) 1 [facility] [place] [employer] [place] [address] * POCT glucose (02/29/2024 7:30 PM ORTHOTIC PRACTITIONER) Glucose, POC 196 70 - 199 mg/dL Blood 02/29/2024 7:30 PM ORTHOTIC PRACTITIONER 02/29/2024 7:30 PM ORTHOTIC PRACTITIONER Mary Kay Vinson MD LAB POCT ORDERABLES - DEVICE Fi nal Result Performing Organization Address City/[facility]/ZIP Co de Phone Number [facility] ([place]) 1 [facility] [place] [employer] [place] [address] * POCT glucose (02/29/2024 4:31 PM ORTHOTIC PRACTITIONER) Glucose, POC 141 70 - 199 mg/dL Blood 02/29/2024 4:31 PM ORTHOTIC PRACTITIONER 02/29/2024 4:31 PM ORTHOTIC PRACTITIONER Mary Kay Vinson MD LAB POCT ORDERABLES - DEVICE Fi nal Result Performing Organization Address City/[facility]/ZIP Co de Phone Number [facility] ([place]) 1 [facility] [place] [employer] [place] [address] * POCT glucose (02/29/2024 11:52 AM ORTHOTIC PRACTITIONER) Glucose, POC 114 70 - 199 mg/dL Blood 02/29/2024 11:5 2 AM ORTHOTIC PRACTITIONER 02/29/2024 11:52 AM ORTHOTIC PRACTITIONER Mary Kay Vinson MD LAB POCT ORDERABLES - DEVICE Fi nal Result [facility] ([place] 1 [facility] [place] [place] [address] * POCT glucose (02/29/2024 8:55 AM ORTHOTIC PRACTITIONER) Glucose, POC 174 70 - 199 mg/dL Blood 02/29/2024 8:55 AM ORTHOTIC PRACTITIONER 02/29/2024 8:55 AM ORTHOTIC PRACTITIONER Mary Kay Vinson MD LAB POCT ORDERABLES - DEVICE Fi nal Result Performing Organization Address City/[facility]/ZIP Co de Phone Number [facility] ([place]) 1 [facility] [employer] [place] [address] * POCT glucose (02/29/2024 2:11 AM ORTHOTIC PRACTITIONER) Glucose, POC 118 70 - 199 mg/dL Blood 02/29/2024 2:11 AM ORTHOTIC PRACTITIONER 02/29/2024 2:11 AM ORTHOTIC PRACTITIONER Mary Kay Vinson MD LAB POCT ORDERABLES - DEVICE Fi nal Result Performing Organization Address City/[facility] Co de Phone Number [facility] ([place] 1 [facility] [employer] [place] [address] * POCT glucose (02/28/2024 8:36 PM ORTHOTIC PRACTITIONER) Glucose, POC 108 70 - 199 mg/dL Blood 02/28/2024 8:36 PM ORTHOTIC PRACTITIONER 02/28/2024 8:36 PM ORTHOTIC PRACTITIONER Mary Kay Vinson MD LAB POCT ORDERABLES - DEVICE Fi nal Result Performing Organization Address City/[facility]/ZIP Co de Phone Number [facility] ([place]) 1 [facility] [employer] [place] [address] * POCT glucose (02/28/2024 4:34 PM ORTHOTIC PRACTITIONER) Glucose, POC 144 70 - 199 mg/dL Blood 02/28/2024 4:34 PM ORTHOTIC PRACTITIONER 02/28/2024 4:34 PM ORTHOTIC PRACTITIONER us Mary Kay Vinson MD LAB POCT ORDERABLES - DEVICE Fi nal Result [facility] ([place]) 1 [facility] [place] [place] [address] * POCT glucose (02/28/2024 12:03 PM ORTHOTIC PRACTITIONER) Glucose, POC 150 70 - 199 mg/dL Blood 02/28/2024 12:0 3 PM ORTHOTIC PRACTITIONER 02/28/2024 12:03 PM ORTHOTIC PRACTITIONER Mary Kay Vinson MD LAB POCT ORDERABLES - DEVICE Fi nal Result Performing Organization Address City/[facility]/ZIP Co de Phone Number [facility] ([place]) 1 [facility] [place] [place] [address] * POCT glucose (02/28/2024 7:56 AM ORTHOTIC PRACTITIONER) Glucose, POC 139 70 - 199 mg/dL Blood 02/28/2024 7:56 AM ORTHOTIC PRACTITIONER 02/28/2024 7:56 AM ORTHOTIC PRACTITIONER Mary Kay Vinson MD LAB POCT ORDERABLES - DEVICE Fi nal Result Performing Organization Address City/[facility]/ZIP Co de Phone Number [facility] ([place]) 1 [facility] [employer] [place] [address] * POCT glucose (02/28/2024 1:57 AM ORTHOTIC PRACTITIONER) Glucose, POC 120 70 - 199 mg/dL Blood 02/28/2024 1:57 AM ORTHOTIC PRACTITIONER 02/28/2024 1:57 AM ORTHOTIC PRACTITIONER Mary Kay Vinson MD LAB POCT ORDERABLES - DEVICE Fi nal Result [facility] ([place]) 1 [facility] [place] [employer] [place] [address] * eGFR (02/28/2024 1:38 AM ORTHOTIC PRACTITIONER) eGFR >90 >=60 mL/min/1. 73 m2 Comment: Interpretive Data Reference Interval Normal >/= 90 mL/min/1.73m2 Mildly decreased* 60 - 89 mL/min/1.73m2 Mildly to moderately decreased 45 - 59 mL/min/1.73m2 Moderately to severely decreased 30 - 44 mL/min/1.73m2 Severely decreased 15 - 29 mL/min/1.73m2 Kidney Failure < 15 mL/min/1.73m2 *Relative to young adult level Estimated glomerular filtration rate is determined by the 2020 CKD-EPI equation recommended by the National Kid[employer] (A Unifying Approach to GFR Estimation: Recommendations of the NKF-ASK Task Force on Reassessing the Inclusion of Race in Diagnosing Kidney Disease, JASN 2020). The CKD-EPI equation should not be used for patients with unstable renal function and has not been validated in children and those over 70. Current interpretive data was last reviewed 2020. Blood 02/28/2024 1:38 AM ORTHOTIC PRACTITIONER 02/28/2024 2:20 AM ORTHOTIC PRACTITIONER us Mary Kay Vinson MD LAB BLOOD ORDERABLES Final Resu lt [facility] ([place]) 1 [facility] [place] [address] * (ABNORMAL) Differential, auto (02/28/2024 1:38 AM ORTHOTIC PRACTITIONER) Neutrophil abs 4.6 1.5 - 6.5 K/cumm Imm gran abs 0.0 0.0 - 0.1 K/cumm [facility] ([place]) Lymphocyte abs 2.2 0.8 - 3.3 K/cumm [facility] ([place]) Monocyte abs 0.9(H) 0.2 - 0.8 K/cumm [facility] ([place]) Eosinophil abs 0.3 0.0 - 0.5 K/cumm [facility] ([place]) Basophil abs 0.0 0.0 - 0.1 K/cumm [facility] ([place]) Neutrophil pct 57.7 % [facility] ([place]) Comment: Interpretive Data Percent cell count reference ranges are not reported, since discordance with absolute values may lead to misinterpretation of CBC data. Current Interpretive Data was last revised on 2017. Imm gran pct 0.2 % [facility] ([place]) Comment: Interpretive Data Percent cell count reference ranges are not reported, since discordance with absolute values may lead to misinterpretation of CBC data. Current Interpretive Data was last revised on 2017. Lymphocyte pct 27.7 % [facility] ([place]) Comment: Interpretive Data Percent cell count reference ranges are not reported, since discordance with absolute values may lead to misinterpretation of CBC data. Current Interpretive Data was last revised on 2017. Monocyte pct 10.6 % [facility] ([place]) Comment: Interpretive Data Percent cell count reference ranges are not reported, since discordance with absolute values may lead to misinterpretation of CBC data. Current Interpretive Data was last revised on 2017. Eosinophil pct 3.6 % [facility] ([place]) Comment: Interpretive Data Percent cell count reference ranges are not reported, since discordance with absolute values may lead to misinterpretation of CBC data. Current Interpretive Data was last revised on 2017. Basophil pct 0.2 % [facility] ([place]) Comment: Interpretive Data Percent cell count reference ranges are not reported, since discordance with absolute values may lead to misinterpretation of CBC data. Current Interpretive Data was last revised on 2017. Blood 02/28/2024 1:38 AM ORTHOTIC PRACTITIONER 02/28/2024 2:20 AM ORTHOTIC PRACTITIONER us Mary Kay Vinson MD LAB BLOOD ORDERABLES Final Resu lt [facility] ([place]) 1 [facility] Department [place] [address] * (ABNORMAL) CBC with auto differential (02/28/2024 1:38 AM ORTHOTIC PRACTITIONER) WBC 8.0 3.8 - 9.9 K/cumm Hgb 12.0 11.9 - 15.5 g/dL [facility] ([place]) Hct 38.1 35.6 - 45.5 % [facility] ([place]) Plt 223 150 - 400 K/cumm [facility] ([place]) MPV 9.0(L) 9.1 - 12.3 fL [facility] ([place]) RBC 4.54 3.90 - 5.20 M/cumm [facility] ([place]) MCV 83.9 81.3 - 96.4 fL [facility] ([place]) MCH 26.4(L) 27.1 - 33.3 pg [facility] ([place]) MCHC 31.5(L) 32.3 - 35.7 g/dL [facility] ([place]) RDW CV 18.5(H) 11.1 - 14.9 % [facility] ([place]) RDW SD 56.0(H) 35.7 - 48.1 fL [facility] ([place]) NRBC abs 0.00 0.00 - 0.01 K/cumm [facility] ([place]) Blood 02/28/2024 1:38 AM ORTHOTIC PRACTITIONER 02/28/2024 2:20 AM ORTHOTIC PRACTITIONER Mary Kay Vinson MD LAB BLOOD ORDERABLES Final Resu lt Performing Organization Address City/[facility] Co de Phone Number [facility] ([place]) 1 [facility] [employer] [place] [address] * Phosphorus (02/28/2024 1:38 AM ORTHOTIC PRACTITIONER) Phosphorus, pl 2.8 2.3 - 4.5 mg/dL Blood 02/28/2024 1:38 AM ORTHOTIC PRACTITIONER 02/28/2024 2:20 AM ORTHOTIC PRACTITIONER Mary Kay Vinson MD LAB BLOOD ORDERABLES Final Resu lt [facility] ([place]) 1 [facility] [employer] [place] [address] * Magnesium (02/28/2024 1:38 AM ORTHOTIC PRACTITIONER) Magnesium 2.0 1.4 - 2.5 mg/dL Blood 02/28/2024 1:38 AM ORTHOTIC PRACTITIONER 02/28/2024 2:20 AM ORTHOTIC PRACTITIONER us Mary Kay Vinson MD LAB BLOOD ORDERABLES Final Resu lt [facility] ([place]) 1 [facility] Department [place] [address] * (ABNORMAL) Comprehensive metabolic panel (02/28/2024 1:38 AM ORTHOTIC PRACTITIONER) Sodium 138 135 - 145 mmol/L Potassium, pl 3.8 3.3 - 4.9 mmol/L [facility] ([place]) Chloride 103 97 - 110 mmol/L [facility] ([place]) CO2 23 22 - 32 mmol/L [facility] ([place]) Anion gap 12 2 - 15 mmol/L [facility] ([place]) BUN 7 6 - 25 mg/dL [facility] ([place]) Creatinine 0.46(L) 0.60 - 1.10 mg/dL [facility] ([place]) Glucose 126 70 - 199 mg/dL [facility] ([place]) Comment: Interpretive Data Fasting glucose >/= 126 mg/dl is diagnostic for diabetes. Fasting is defined as no caloric intake for at least 8 hours. Fasting glucose between 100 mg/dl to 125 mg/dl is diagnostic of prediabetes. In a patient with classic symptoms of hyperglycemia or hyperglycemic crisis, a random glucose >/= 200 mg/dl is diagnostic for diabetes. In the absence of unequivocal hyperglycemia, results should be confirmed by repeat testing. The classification and Diagnosis of Diabetes Diabetes Care 2021; 46: S19-S40. Current interpretive data was last revised 2022. Calcium 9.7 8.5 - 10.3 mg/dL [facility] ([place]) Bilirubin, total 0.3 0.1 - 1.2 mg/dL [facility] ([place]) Protein, pl 6.5 6.5 - 8.5 g/dL [facility] ([place]) Albumin 3.7 3.5 - 5.0 g/dL [facility] ([place]) Alk phos 39(L) 40 - 130 Units/L [facility] ([place]) ALT 23 7 - 45 Units/L [facility] ([place]) AST 24 10 - 45 Units/L [facility] ([place]) Blood 02/28/2024 1:38 AM ORTHOTIC PRACTITIONER 02/28/2024 2:20 AM ORTHOTIC PRACTITIONER Mary Kay Vinson MD LAB BLOOD ORDERABLES Final Resu lt [facility] ([place]) 1 [facility] [employer] [place] [address] * POCT glucose (02/27/2024 8:43 PM ORTHOTIC PRACTITIONER) Glucose, POC 131 70 - 199 mg/dL Blood 02/27/2024 8:43 PM ORTHOTIC PRACTITIONER 02/27/2024 8:43 PM ORTHOTIC PRACTITIONER us Mary Kay Vinson MD LAB POCT ORDERABLES - DEVICE Fi nal Result Performing Organization Address City/[facility]/ZIP Co de Phone Number [facility] ([place]) 1 [facility] [employer] [place] [address] * POCT glucose (02/27/2024 5:00 PM ORTHOTIC PRACTITIONER) Glucose, POC 112 70 - 199 mg/dL Blood 02/27/2024 5:00 PM ORTHOTIC PRACTITIONER 02/27/2024 5:00 PM ORTHOTIC PRACTITIONER Mary Kay Vinson MD LAB POCT ORDERABLES - DEVICE Fi nal Result Performing Organization Address City/[facility]/ZIP Co de Phone Number [facility] ([place]) 1 [facility] [employer] [place] [address] * POCT glucose (02/27/2024 12:01 PM ORTHOTIC PRACTITIONER) Glucose, POC 111 70 - 199 mg/dL Blood 02/27/2024 12:0 1 PM ORTHOTIC PRACTITIONER 02/27/2024 12:01 PM ORTHOTIC PRACTITIONER Mary Kay Vinson MD LAB POCT ORDERABLES - DEVICE Fi nal Result Performing Organization Address [facility] Co de Phone Number [facility] ([place]) 1 [facility] [employer] [place] [address] * POCT glucose (02/27/2024 7:59 AM ORTHOTIC PRACTITIONER) Glucose, POC 122 70 - 199 mg/dL Blood 02/27/2024 7:59 AM ORTHOTIC PRACTITIONER 02/27/2024 7:59 AM ORTHOTIC PRACTITIONER Mary Kay Vinson MD LAB POCT ORDERABLES - DEVICE Fi nal Result Performing Organization Address [facility] de Phone Number [facility] ([place]) 1 [facility] [employer] [place] [address] * eGFR (02/27/2024 4:34 AM ORTHOTIC PRACTITIONER) eGFR 90 >=60 mL/min/1. 73 m2 Comment: Interpretive Data Reference Interval Normal >/= 90 mL/min/1.73m2 Mildly decreased* 60 - 89 mL/min/1.73m2 Mildly to moderately decreased 45 - 59 mL/min/1.73m2 Moderately to severely decreased 30 - 44 mL/min/1.73m2 Severely decreased 15 - 29 mL/min/1.73m2 Kidney Failure < 15 mL/min/1.73m2 *Relative to young adult level Estimated glomerular filtration rate is determined by the 2020 CKD-EPI equation recommended by the National Kidney Foundation (A Unifying Approach to GFR Estimation: Recommendations of the NKF-ASK Task Force on Reassessing the Inclusion of Race in Diagnosing Kidney Disease, JASN 2020). The CKD-EPI equation should not be used for patients with unstable renal function and has not been validated in children and those over 70. Current interpretive data was last reviewed 2020. Blood 02/27/2024 4:34 AM ORTHOTIC PRACTITIONER 02/27/2024 5:43 AM ORTHOTIC PRACTITIONER Mary Kay Vinson MD LAB BLOOD ORDERABLES Final Resu lt Performing Organization Address City/[facility]/ZIP Co de Phone Number [facility] ([place]) 1 [facility] Department [place] [address] * Differential, auto (02/27/2024 4:34 AM ORTHOTIC PRACTITIONER) Neutrophil abs 4.2 1.5 - 6.5 K/cumm Imm gran abs 0.0 0.0 - 0.1 K/cumm [facility] ([place]) Lymphocyte abs 2.0 0.8 - 3.3 K/cumm [facility] ([place]) Monocyte abs 0.8 0.2 - 0.8 K/cumm [facility] ([place]) Eosinophil abs 0.3 0.0 - 0.5 K/cumm [facility] ([place]) Basophil abs 0.0 0.0 - 0.1 K/cumm [facility] ([place]) Neutrophil pct 57.4 % [facility] ([place]) Comment: Interpretive Data Percent cell count reference ranges are not reported, since discordance with absolute values may lead to misinterpretation of CBC data. Current Interpretive Data was last revised on 2017. Imm gran pct 0.3 % [facility] ([place]) Comment: Interpretive Data Percent cell count reference ranges are not reported, since discordance with absolute values may lead to misinterpretation of CBC data. Current Interpretive Data was last revised on 2017. Lymphocyte pct 27.5 % [facility] ([place]) Comment: Interpretive Data Percent cell count reference ranges are not reported, since discordance with absolute values may lead to misinterpretation of CBC data. Current Interpretive Data was last revised on 2017. Monocyte pct 10.8 % [facility] ([place]) Comment: Interpretive Data Percent cell count reference ranges are not reported, since discordance with absolute values may lead to misinterpretation of CBC data. Current Interpretive Data was last revised on 2017. Eosinophil pct 3.6 % [facility] ([place]) Comment: Interpretive Data Percent cell count reference ranges are not reported, since discordance with absolute values may lead to misinterpretation of CBC data. Current Interpretive Data was last revised on 2017. Basophil pct 0.4 % [facility] ([place]) Comment: Interpretive Data Percent cell count reference ranges are not reported, since discordance with absolute values may lead to misinterpretation of CBC data. Current Interpretive Data was last revised on 2017. Blood 02/27/2024 4:34 AM ORTHOTIC PRACTITIONER 02/27/2024 5:45 AM ORTHOTIC PRACTITIONER us Mary Kay Vinson MD LAB BLOOD ORDERABLES Final Resu lt [facility] ([place]) 1 [facility] [employer] [place] [address] * (ABNORMAL) CBC with auto differential (02/27/2024 4:34 AM ORTHOTIC PRACTITIONER) WBC 7.2 3.8 - 9.9 K/cumm Hgb 11.1(L) 11.9 - 15.5 g/dL [facility] ([place]) Hct 34.9(L) 35.6 - 45.5 % [facility] ([place]) Plt 187 150 - 400 K/cumm [facility] ([place]) MPV 9.5 9.1 - 12.3 fL [facility] ([place]) RBC 4.17 3.90 - 5.20 M/cumm [facility] ([place]) MCV 83.7 81.3 - 96.4 fL [facility] ([place]) MCH 26.6(L) 27.1 - 33.3 pg [facility] ([place]) MCHC 31.8(L) 32.3 - 35.7 g/dL [facility] ([place]) RDW CV 18.3(H) 11.1 - 14.9 % [facility] ([place]) RDW SD 55.5(H) 35.7 - 48.1 fL [facility] ([place]) NRBC abs 0.00 0.00 - 0.01 K/cumm [facility] ([place]) Blood 02/27/2024 4:34 AM ORTHOTIC PRACTITIONER 02/27/2024 5:45 AM ORTHOTIC PRACTITIONER us Mary Kay Vinson MD LAB BLOOD ORDERABLES Final Resu lt [facility] ([place]) 1 [place] [address] * Phosphorus (02/27/2024 4:34 AM ORTHOTIC PRACTITIONER) Pathologist [facility] [place] Phosphorus, pl 3.1 2.3 - 4.5 mg/dL Blood 02/27/2024 4:34 AM ORTHOTIC PRACTITIONER 02/27/2024 5:43 AM ORTHOTIC PRACTITIONER Mary Kay Vinson MD LAB BLOOD ORDERABLES Final Resu lt [facility] ([place]) 1 [place] [address] * Magnesium (02/27/2024 4:34 AM ORTHOTIC PRACTITIONER) [facility] Magnesium 1.8 1.4 - 2.5 mg/dL Blood 02/27/2024 4:34 AM ORTHOTIC PRACTITIONER 02/27/2024 5:43 AM ORTHOTIC PRACTITIONER Mary Kay Vinson MD LAB BLOOD ORDERABLES Final Resu lt [facility] ([place]) 1 [place] [address] * (ABNORMAL) Comprehensive metabolic panel (02/27/2024 4:34 AM ORTHOTIC PRACTITIONER) [facility] Sodium 137 135 - 145 mmol/L Potassium, pl 3.8 3.3 - 4.9 mmol/L [facility] ([place]) Chloride 105 97 - 110 mmol/L [facility] ([place]) CO2 25 22 - 32 mmol/L [facility] ([place] Anion gap 7 2 - 15 mmol/L [facility] ([place]) BUN 10 6 - 25 mg/dL [facility] ([place]) Creatinine 0.52(L) 0.60 - 1.10 mg/dL [facility] ([place]) Glucose 113 70 - 199 mg/dL [facility] ([place]) Comment: Interpretive Data Fasting glucose >/= 126 mg/dl is diagnostic for diabetes. Fasting is defined as no caloric intake for at least 8 hours. Fasting glucose between 100 mg/dl to 125 mg/dl is diagnostic of prediabetes. In a patient with classic symptoms of hyperglycemia or hyperglycemic crisis, a random glucose >/= 200 mg/dl is diagnostic for diabetes. In the absence of unequivocal hyperglycemia, results should be confirmed by repeat testing. The classification and Diagnosis of Diabetes Diabetes Care 2021; 46: S19-S40. Current interpretive data was last revised 2022. Calcium 9.6 8.5 - 10.3 mg/dL [facility] ([place]) Bilirubin, total 0.3 0.1 - 1.2 mg/dL [facility] ([place]) Protein, pl 6.1(L) 6.5 - 8.5 g/dL [facility] ([place]) Albumin 3.5 3.5 - 5.0 g/dL [facility] ([place]) Alk phos 35(L) 40 - 130 Units/L [facility] ([place]) ALT 19 7 - 45 Units/L [facility] ([place]) AST 20 10 - 45 Units/L [facility] ([place]) Blood 02/27/2024 4:34 AM ORTHOTIC PRACTITIONER 02/27/2024 5:43 AM ORTHOTIC PRACTITIONER Mary Kay Vinson MD LAB BLOOD ORDERABLES Final Resu lt Performing Organization Address City/[facility]/ZIP Co de Phone Number [facility] ([place]) 1 [facility] [employer] [place] [place] [address] * POCT glucose (02/27/2024 2:22 AM ORTHOTIC PRACTITIONER) Glucose, POC 106 70 - 199 mg/dL Blood 02/27/2024 2:22 AM ORTHOTIC PRACTITIONER 02/27/2024 2:22 AM ORTHOTIC PRACTITIONER Mary Kay Vinson MD LAB POCT ORDERABLES - DEVICE Fi nal Result Performing Organization Address City/[facility]/ZIP Co de Phone Number [facility] ([place]) 1 [facility] [place] [employer] [place] [address] * POCT glucose (02/26/2024 9:05 PM ORTHOTIC PRACTITIONER) Glucose, POC 153 70 - 199 mg/dL Blood 02/26/2024 9:05 PM ORTHOTIC PRACTITIONER 02/26/2024 9:05 PM ORTHOTIC PRACTITIONER Mary Kay Vinson MD LAB POCT ORDERABLES - DEVICE Fi nal Result Performing Organization Address [facility] Co de Phone Number [facility] ([place]) 1 [facility] [employer] [place] [address] * POCT glucose (02/26/2024 3:48 PM ORTHOTIC PRACTITIONER) Glucose, POC 142 70 - 199 mg/dL Blood 02/26/2024 3:48 PM ORTHOTIC PRACTITIONER 02/26/2024 3:48 PM ORTHOTIC PRACTITIONER Mary Kay Vinson MD LAB POCT ORDERABLES - DEVICE Fi nal Result Performing Organization Address [facility] de Phone Number [facility] ([place]) 1 [facility] [employer] [place] [address] * POCT glucose (02/26/2024 11:21 AM ORTHOTIC PRACTITIONER) Glucose, POC 172 70 - 199 mg/dL Blood 02/26/2024 11:2 1 AM ORTHOTIC PRACTITIONER 02/26/2024 11:21 AM ORTHOTIC PRACTITIONER Mary Kay Vinson MD LAB POCT ORDERABLES - DEVICE Fi nal Result Performing Organization Address [facility] Co de Phone Number [facility] ([place]) 1 [facility] [employer] [place] [address] * POCT glucose (02/26/2024 7:50 AM ORTHOTIC PRACTITIONER) Glucose, POC 136 70 - 199 mg/dL Blood 02/26/2024 7:50 AM ORTHOTIC PRACTITIONER 02/26/2024 7:50 AM ORTHOTIC PRACTITIONER Mary Kay Vinson MD LAB POCT ORDERABLES - DEVICE Fi nal Result Performing Organization Address [facility]/ZIP Co de Phone Number [facility] ([place]) 1 [facility] [employer] [place] [address] * POCT glucose (02/26/2024 2:10 AM ORTHOTIC PRACTITIONER) Glucose, POC 97 70 - 199 mg/dL Blood 02/26/2024 2:10 AM ORTHOTIC PRACTITIONER 02/26/2024 2:10 AM ORTHOTIC PRACTITIONER us Mary Kay Vinson MD LAB POCT ORDERABLES - DEVICE Fi nal Result Performing Organization Address [facility] Co de Phone Number [facility] ([place]) 1 [facility] [employer] [place] [address] * eGFR (02/26/2024 2:01 AM ORTHOTIC PRACTITIONER) eGFR 90 >=60 mL/min/1. 73 m2 Comment: Interpretive Data Reference Interval Normal >/= 90 mL/min/1.73m2 Mildly decreased* 60 - 89 mL/min/1.73m2 Mildly to moderately decreased 45 - 59 mL/min/1.73m2 Moderately to severely decreased 30 - 44 mL/min/1.73m2 Severely decreased 15 - 29 mL/min/1.73m2 Kidney Failure < 15 mL/min/1.73m2 *Relative to young adult level Estimated glomerular filtration rate is determined by the 2020 CKD-EPI equation recommended by the National Kidney Foundation (A Unifying Approach to GFR Estimation: Recommendations of the NKF-ASK Task Force on Reassessing the Inclusion of Race in Diagnosing Kidney Disease, JASN 2020). The CKD-EPI equation should not be used for patients with unstable renal function and has not been validated in children and those over 70. Current interpretive data was last reviewed 2020. Blood 02/26/2024 2:01 AM ORTHOTIC PRACTITIONER 02/26/2024 2:02 AM ORTHOTIC PRACTITIONER Mary Kay Vinson MD LAB BLOOD ORDERABLES Final Resu lt Performing Organization Address City/[facility]/ZIP Co de Phone Number [facility] ([place]) [address] Department [place] [address] * (ABNORMAL) Differential, auto (02/26/2024 2:01 AM ORTHOTIC PRACTITIONER) Neutrophil abs 4.5 1.5 - 6.5 K/cumm Imm gran abs 0.0 0.0 - 0.1 K/cumm [facility] ([place]) Lymphocyte abs 2.8 0.8 - 3.3 K/cumm [facility] ([place]) Monocyte abs 0.9(H) 0.2 - 0.8 K/cumm [facility] ([place]) Eosinophil abs 0.3 0.0 - 0.5 K/cumm [facility] ([place]) Basophil abs 0.0 0.0 - 0.1 K/cumm [facility] ([place]) Neutrophil pct 52.3 % [facility] ([place]) Comment: Interpretive Data Percent cell count reference ranges are not reported, since discordance with absolute values may lead to misinterpretation of CBC data. Current Interpretive Data was last revised on 2017. Imm gran pct 0.4 % [facility] ([place]) Comment: Interpretive Data Percent cell count reference ranges are not reported, since discordance with absolute values may lead to misinterpretation of CBC data. Current Interpretive Data was last revised on 2017. Lymphocyte pct 32.6 % [facility] ([place]) Comment: Interpretive Data Percent cell count reference ranges are not reported, since discordance with absolute values may lead to misinterpretation of CBC data. Current Interpretive Data was last revised on 2017. Monocyte pct 11.0 % [facility] ([place]) Comment: Interpretive Data Percent cell count reference ranges are not reported, since discordance with absolute values may lead to misinterpretation of CBC data. Current Interpretive Data was last revised on 2017. Eosinophil pct 3.2 % [facility] ([place]) Comment: Interpretive Data Percent cell count reference ranges are not reported, since discordance with absolute values may lead to misinterpretation of CBC data. Current Interpretive Data was last revised on 2017. Basophil pct 0.5 % [facility] ([place]) Comment: Interpretive Data Percent cell count reference ranges are not reported, since discordance with absolute values may lead to misinterpretation of CBC data. Current Interpretive Data was last revised on 2017. Blood 02/26/2024 2:01 AM ORTHOTIC PRACTITIONER 02/26/2024 2:01 AM ORTHOTIC PRACTITIONER Mary Kay Vinson MD LAB BLOOD ORDERABLES Final Resu lt [facility] ([place]) 1 [facility] [place] [address] * (ABNORMAL) CBC with auto differential (02/26/2024 2:01 AM ORTHOTIC PRACTITIONER) WBC 8.5 3.8 - 9.9 K/cumm Hgb 11.5(L) 11.9 - 15.5 g/dL [facility] ([place]) Hct 36.2 35.6 - 45.5 % [facility] ([place]) Plt 211 150 - 400 K/cumm [facility] ([place]) MPV 8.8(L) 9.1 - 12.3 fL [facility] ([place]) RBC 4.36 3.90 - 5.20 M/cumm [facility] ([place]) MCV 83.0 81.3 - 96.4 fL [facility] ([place]) MCH 26.4(L) 27.1 - 33.3 pg [facility] ([place]) MCHC 31.8(L) 32.3 - 35.7 g/dL [facility] ([place]) RDW CV 18.4(H) 11.1 - 14.9 % [facility] ([place]) RDW SD 54.6(H) 35.7 - 48.1 fL [facility] ([place]) NRBC abs 0.00 0.00 - 0.01 K/cumm [facility] ([place]) Blood 02/26/2024 2:01 AM ORTHOTIC PRACTITIONER 02/26/2024 2:01 AM ORTHOTIC PRACTITIONER us Mary Kay Vinson MD LAB BLOOD ORDERABLES Final Resu lt [facility] ([place]) 1 [place] [address] * Phosphorus (02/26/2024 2:01 AM ORTHOTIC PRACTITIONER) Pathologist [facility] [place] Phosphorus, pl 3.5 2.3 - 4.5 mg/dL Blood 02/26/2024 2:01 AM ORTHOTIC PRACTITIONER 02/26/2024 2:02 AM ORTHOTIC PRACTITIONER Mary Kay Vinson MD LAB BLOOD ORDERABLES Final Resu lt [facility] ([place]) 1 [place] [address] * Magnesium (02/26/2024 2:01 AM ORTHOTIC PRACTITIONER) [facility] Magnesium 1.8 1.4 - 2.5 mg/dL Blood 02/26/2024 2:01 AM ORTHOTIC PRACTITIONER 02/26/2024 2:02 AM ORTHOTIC PRACTITIONER Mary Kay Vinson MD LAB BLOOD ORDERABLES Final Resu lt [facility] ([place]) 1 [place] [address] * (ABNORMAL) Comprehensive metabolic panel (02/26/2024 2:01 AM ORTHOTIC PRACTITIONER) Pathologist [facility] [place] Sodium 139 135 - 145 mmol/L Potassium, pl 4.0 3.3 - 4.9 mmol/L [facility] ([place]) Chloride 105 97 - 110 mmol/L [facility] ([place]) CO2 23 22 - 32 mmol/L [facility] ([place] Anion gap 11 2 - 15 mmol/L [facility] ([place]) BUN 10 6 - 25 mg/dL [facility] ([place]) Creatinine 0.52(L) 0.60 - 1.10 mg/dL [facility] ([place]) Glucose 109 70 - 199 mg/dL [facility] ([place]) Comment: Interpretive Data Fasting glucose >/= 126 mg/dl is diagnostic for diabetes. Fasting is defined as no caloric intake for at least 8 hours. Fasting glucose between 100 mg/dl to 125 mg/dl is diagnostic of prediabetes. In a patient with classic symptoms of hyperglycemia or hyperglycemic crisis, a random glucose >/= 200 mg/dl is diagnostic for diabetes. In the absence of unequivocal hyperglycemia, results should be confirmed by repeat testing. The classification and Diagnosis of Diabetes Diabetes Care 2021; 46: S19-S40. Current interpretive data was last revised 2022. Calcium 9.9 8.5 - 10.3 mg/dL [facility] ([place]) Bilirubin, total 0.3 0.1 - 1.2 mg/dL [facility] ([place]) Protein, pl 6.4(L) 6.5 - 8.5 g/dL [facility] ([place]) Albumin 3.4(L) 3.5 - 5.0 g/dL [facility] ([place]) Alk phos 36(L) 40 - 130 Units/L [facility] ([place]) ALT 20 7 - 45 Units/L [facility] ([place]) AST 20 10 - 45 Units/L [facility] ([place]) Blood 02/26/2024 2:01 AM ORTHOTIC PRACTITIONER 02/26/2024 2:02 AM ORTHOTIC PRACTITIONER Mary Kay Vinson MD LAB BLOOD ORDERABLES Final Resu lt Performing Organization Address City/[facility]/ZIP Co de Phone Number [facility] ([place]) 1 [facility] [employer] [place] [address] * POCT glucose (02/25/2024 8:51 PM ORTHOTIC PRACTITIONER) Glucose, POC 143 70 - 199 mg/dL Blood 02/25/2024 8:51 PM ORTHOTIC PRACTITIONER 02/25/2024 8:51 PM ORTHOTIC PRACTITIONER Mary Kay Vinson MD LAB POCT ORDERABLES - DEVICE Fi nal Result Performing Organization Address City/[facility]/ZIP Co de Phone Number [facility] 1 [facility] [place] [employer] [place] [address] * POCT glucose (02/25/2024 4:27 PM ORTHOTIC PRACTITIONER) Glucose, POC 122 70 - 199 mg/dL Blood 02/25/2024 4:27 PM ORTHOTIC PRACTITIONER 02/25/2024 4:27 PM ORTHOTIC PRACTITIONER Mary Kay Vinson MD LAB POCT ORDERABLES - DEVICE Fi nal Result [facility] [place] 1 [facility] Department [place] [address] * XR Foot Right 3 or More Views (02/25/2024 3:54 PM ORTHOTIC PRACTITIONER) Anatomical Region Laterality Modality Lower Extremities, Foot Right Computed Radiography 02/25/2024 6:27 PM ORTHOTIC PRACTITIONER Narrative 02/25/2024 6:29 PM ORTHOTIC PRACTITIONER EXAM DESCRIPTION: XR FOOT RIGHT 3 OR MORE VIEWS REASON FOR STUDY: Fall. Foot pain. TECHNIQUE: 3 radiographic view(s) of the right foot . COMPARISON: None FINDINGS: Bones are demineralized, limiting evaluation for subtle fracture. There is a suspected minimally displaced fracture of the proximal phalanx of the 5th toe. No other fractures identified. No joint space widening. There are [id number] degenerative changes in the midfoot. Small calcaneal spur is present. There are atherosclerotic vascular calcifications. IMPRESSION: Suspected minimally displaced fracture of the proximal phalanx of the 5th toe. Recommend correlation with point tenderness. THIS IS AN ELECTRONICALLY VERIFIED FINAL REPORT 02/25/2024 6:29 PM - Electronically signed by Ignacio Nieves M.D. AM: AM Report ID: [id number] Reading Location: [id number] Procedure Note Ignacio Nieves MD - 02/25/2024 EXAM DESCRIPTION: XR FOOT RIGHT 3 OR MORE VIEWS REASON FOR STUDY: Fall. Foot pain. TECHNIQUE: 3 radiographic view(s) of the right foot . COMPARISON: None FINDINGS: Bones are demineralized, limiting evaluation for subtle fracture. Thereis a suspected minimally displaced fracture of the proximal phalanx of the 5thtoe. No other fractures identified. No joint space widening. There are cpbtgcds-rq-[id number] degenerative changes in the midfoot. Small calcanealspur is present. There are atherosclerotic vascular calcifications. IMPRESSION: Suspected minimally displaced fracture of the proximal phalanx of the 5thtoe. Recommend correlation with point tenderness. THIS IS AN ELECTRONICALLY VERIFIED FINAL REPORT 02/25/2024 6:29 PM - Electronically signed by Ignacio Nieves M.D. AM: AM Report ID: [id number] Reading Location: [place] [address] Mary Kay Vinson MD IMG XR PROCEDURES Final Result * POCT glucose (02/25/2024 12:48 PM ORTHOTIC PRACTITIONER) Glucose, POC 156 70 - 199 mg/dL Blood 02/25/2024 12:4 8 PM ORTHOTIC PRACTITIONER 02/25/2024 12:48 PM ORTHOTIC PRACTITIONER Mary Kay Vinson MD LAB POCT ORDERABLES - DEVICE Fi nal Result Performing Organization Address [facility] Co de Phone Number [facility] [place]) [address] [place] [address] [place] [address] * POCT glucose (02/25/2024 8:50 AM ORTHOTIC PRACTITIONER) Glucose, POC 105 70 - 199 mg/dL Blood 02/25/2024 8:50 AM ORTHOTIC PRACTITIONER 02/25/2024 8:50 AM ORTHOTIC PRACTITIONER Mary Kay Vinson MD LAB POCT ORDERABLES - DEVICE Fi nal Result Performing Organization Address [facility] Co de Phone Number [facility] ([place]) 1 [facility] [place] [address] * eGFR (02/25/2024 4:54 AM ORTHOTIC PRACTITIONER) eGFR 87 >=60 mL/min/1. 73 m2 Comment: Interpretive Data Reference Interval Normal >/= 90 mL/min/1.73m2 Mildly decreased* 60 - 89 mL/min/1.73m2 Mildly to moderately decreased 45 - 59 mL/min/1.73m2 Moderately to severely decreased 30 - 44 mL/min/1.73m2 Severely decreased 15 - 29 mL/min/1.73m2 Kidney Failure < 15 mL/min/1.73m2 *Relative to young adult level Estimated glomerular filtration rate is determined by the 2020 CKD-EPI equation recommended by the National Kidney Foundation (A Unifying Approach to GFR Estimation: Recommendations of the NKF-ASK Task Force on Reassessing the Inclusion of Race in Diagnosing Kidney Disease, JASN 2020). The CKD-EPI equation should not be used for patients with unstable renal function and has not been validated in children and those over 70. Current interpretive data was last reviewed 2020. Blood 02/25/2024 4:54 AM ORTHOTIC PRACTITIONER 02/25/2024 5:00 AM ORTHOTIC PRACTITIONER us Mason Ward MD LAB BLOOD ORDERABLES Final Resu lt [facility] ([place]) 1 [facility] Department of Laboratories [place], [place] [id number] * (ABNORMAL) Differential, auto (02/25/2024 4:54 AM ORTHOTIC PRACTITIONER) Neutrophil abs 5.1 1.5 - 6.5 K/cumm Imm gran abs 0.0 0.0 - 0.1 K/cumm [facility] ([place]) Lymphocyte abs 2.2 0.8 - 3.3 K/cumm [facility] ([place]) Monocyte abs 0.9(H) 0.2 - 0.8 K/cumm [facility] ([place]) Eosinophil abs 0.2 0.0 - 0.5 K/cumm [facility] ([place]) Basophil abs 0.0 0.0 - 0.1 K/cumm [facility] ([place]) Neutrophil pct 60.2 % [facility] ([place]) Comment: Interpretive Data Percent cell count reference ranges are not reported, since discordance with absolute values may lead to misinterpretation of CBC data. Current Interpretive Data was last revised on 2017. Imm gran pct 0.4 % [facility] ([place]) Comment: Interpretive Data Percent cell count reference ranges are not reported, since discordance with absolute values may lead to misinterpretation of CBC data. Current Interpretive Data was last revised on 2017. Lymphocyte pct 26.3 % [facility] ([place]) Comment: Interpretive Data Percent cell count reference ranges are not reported, since discordance with absolute values may lead to misinterpretation of CBC data. Current Interpretive Data was last revised on 2017. Monocyte pct 10.3 % [facility] ([place]) Comment: Interpretive Data Percent cell count reference ranges are not reported, since discordance with absolute values may lead to misinterpretation of CBC data. Current Interpretive Data was last revised on 2017. Eosinophil pct 2.4 % [facility] ([place]) Comment: Interpretive Data Percent cell count reference ranges are not reported, since discordance with absolute values may lead to misinterpretation of CBC data. Current Interpretive Data was last revised on 2017. Basophil pct 0.4 % [facility] ([place]) Comment: Interpretive Data Percent cell count reference ranges are not reported, since discordance with absolute values may lead to misinterpretation of CBC data. Current Interpretive Data was last revised on 2017. Blood 02/25/2024 4:54 AM ORTHOTIC PRACTITIONER 02/25/2024 5:00 AM ORTHOTIC PRACTITIONER us Mason Ward MD LAB BLOOD ORDERABLES Final Resu lt [facility] ([place]) 1 [facility] Department [place] [address] * (ABNORMAL) CBC with auto differential (02/25/2024 4:54 AM ORTHOTIC PRACTITIONER) WBC 8.4 3.8 - 9.9 K/cumm Hgb 12.0 11.9 - 15.5 g/dL [facility] ([place]) Hct 37.5 35.6 - 45.5 % [facility] ([place]) Plt 219 150 - 400 K/cumm [facility] ([place]) MPV 8.8(L) 9.1 - 12.3 fL [facility] ([place]) RBC 4.52 3.90 - 5.20 M/cumm [facility] ([place]) MCV 83.0 81.3 - 96.4 fL [facility] ([place]) MCH 26.5(L) 27.1 - 33.3 pg [facility] ([place]) MCHC 32.0(L) 32.3 - 35.7 g/dL [facility] ([place]) RDW CV 18.4(H) 11.1 - 14.9 % [facility] ([place]) RDW SD 54.7(H) 35.7 - 48.1 fL [facility] ([place]) NRBC abs 0.00 0.00 - 0.01 K/cumm [facility] Blood 02/25/2024 4:54 AM ORTHOTIC PRACTITIONER 02/25/2024 5:00 AM ORTHOTIC PRACTITIONER Mary Kay Vinson MD LAB BLOOD ORDERABLES Final Resu lt Performing Organization Address [facility]/ZIP Co de Phone Number [facility] 1 [facility] [place] [address] * Magnesium (02/25/2024 4:54 AM ORTHOTIC PRACTITIONER) Pathologist [facility] Magnesium 1.9 1.4 - 2.5 mg/dL Blood 02/25/2024 4:54 AM ORTHOTIC PRACTITIONER 02/25/2024 5:00 AM ORTHOTIC PRACTITIONER Mary Kay Vinson MD LAB BLOOD ORDERABLES Final Resu lt Performing Organization Address City/[facility]/ZIP Co de Phone Number [facility] ([place] 1 [facility] [employer] [place] [address] * (ABNORMAL) Comprehensive metabolic panel (02/25/2024 4:54 AM ORTHOTIC PRACTITIONER) Sodium 143 135 - 145 mmol/L Potassium, pl 4.2 3.3 - 4.9 mmol/L [facility] ([place]) Chloride 105 97 - 110 mmol/L [facility] ([place]) CO2 27 22 - 32 mmol/L [facility] ([place] Anion gap 11 2 - 15 mmol/L [facility] ([place]) BUN 12 6 - 25 mg/dL [facility] ([place]) Creatinine 0.60 0.60 - 1.10 mg/dL [facility] ([place]) Glucose 98 70 - 199 mg/dL [facility] ([place]) Comment: Interpretive Data Fasting glucose >/= 126 mg/dl is diagnostic for diabetes. Fasting is defined as no caloric intake for at least 8 hours. Fasting glucose between 100 mg/dl to 125 mg/dl is diagnostic of prediabetes. In a patient with classic symptoms of hyperglycemia or hyperglycemic crisis, a random glucose >/= 200 mg/dl is diagnostic for diabetes. In the absence of unequivocal hyperglycemia, results should be confirmed by repeat testing. The classification and Diagnosis of Diabetes Diabetes Care 2021; 46: S19-S40. Current interpretive data was last revised 2022. Calcium 9.9 8.5 - 10.3 mg/dL [facility] ([place]) Bilirubin, total 0.3 0.1 - 1.2 mg/dL [facility] ([place]) Protein, pl 6.3(L) 6.5 - 8.5 g/dL [facility] ([place]) Albumin 3.7 3.5 - 5.0 g/dL [facility] ([place]) Alk phos 40 40 - 130 Units/L [facility] ([place]) ALT 23 7 - 45 Units/L [facility] ([place] AST 20 10 - 45 Units/L [facility] ([place]) Blood 02/25/2024 4:54 AM ORTHOTIC PRACTITIONER 02/25/2024 5:00 AM ORTHOTIC PRACTITIONER us Mary Kay Vinson MD LAB BLOOD ORDERABLES Final Resu lt [facility] ([place]) 1 [facility] Department [place] [address] * POCT glucose (02/24/2024 11:17 PM ORTHOTIC PRACTITIONER) Glucose, POC 152 70 - 199 mg/dL Comment:Glu2: RN/ Notified Blood 02/24/2024 11:1 7 PM ORTHOTIC PRACTITIONER 02/24/2024 11:17 PM ORTHOTIC PRACTITIONER Mason Ward MD LAB POCT ORDERABLES - DEVICE Fi nal Result Performing Organization Address [facility]/ZIP Co de Phone Number [facility] ([place]) 1 [facility] Department [place] [address] * (ABNORMAL) Influenza A/B, RSV, and COVID-19 PCR Nasopharyngeal (02/24/2024 9:28 PM ORTHOTIC PRACTITIONER) COVID-19 RNA Positive(A) Negative Influenza A RNA Negative Negative [facility] ([place]) Influenza B RNA Negative Negative [facility] ([place]) RSV RNA Negative Negative [facility] ([place]) Comment: Interpretive data: Testing performed by [facility]. This test is performed using the [employer] Xpert Xpress CoV-2/Flu/RSV plus assay. This is a multiplex, real- time reverse transcriptase PCR assay intended for the qualitative detection of nucleic acid from SARS-CoV-2, influenza A, influenza B, and respiratory syncytial virus. This assay has been cleared by the [place] Food and Drug administration. The performance characteristics have been verified by the [facility]. Results must be considered in the clinical context, and a negative result does not rule out infection. Interpretive Data last revised 2023 Nasopharyngeal 02/24/2024 9: 28 PM ORTHOTIC PRACTITIONER 02/24/2024 9:34 PM ORTHOTIC PRACTITIONER Narrative [facility] ([place]) - 02/24/2024 10:12 PM ORTHOTIC PRACTITIONER Is the Patient experiencing symptoms consistent with COVID?->No Mason Ward MD LAB MICROBIOLOGY - GENERAL ORDE RABLES Final Result [facility] ([place]) 1 [facility] Department [place] [address] * XR Chest 1 View (02/24/2024 6:06 PM ORTHOTIC PRACTITIONER) Anatomical Region Laterality Modality Body, Chest N/A Computed Radiogr aphy 02/24/2024 7:24 PM ORTHOTIC PRACTITIONER Narrative 02/24/2024 7:27 PM ORTHOTIC PRACTITIONER EXAM DESCRIPTION: XR CHEST 1 VIEW REASON FOR STUDY: chest pain Pt to ED for c/o multiple falls over the last week per son. Pt unsure of if she hit her head or not with the falls. Pt reports right hip pain. Pt son reports he is wanting her admitted for physical therapy. Pt reports she falls because her right leg gives out. TECHNIQUE: 1 radiographic view(s) of the chest. COMPARISON: 07/29/2022 , 04/11/2019 FINDINGS: LUNGS: There is mild left retrocardiac opacity, favored to be atelectasis. Please correlate clinically to exclude pneumonia.. Lung volumes are small. No pleural effusion or pneumothorax is seen. Calcified granulomas are noted HEART/MEDIASTINUM: Allowing for differences in technique, unchanged cardiomediastinal contours and heart size. LINES/TUBES: None. 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 There are severe glenohumeral degenerative changes. Visualized upper abdomen is unremarkable IMPRESSION: Mild left retrocardiac opacity, favored to be atelectasis. Please correlate clinically to exclude pneumonia. 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 THIS IS AN ELECTRONICALLY VERIFIED FINAL REPORT 02/24/2024 7:27 PM - Electronically signed by Shukri Celestin M.D. MZ: MZ Report ID: [id number] Reading Location: [id number] Procedure Note Shukri Celestin MD - 02/24/2024 EXAM DESCRIPTION: XR CHEST 1 VIEW REASON FOR STUDY: chest pain Pt to ED for c/o multiple falls over the last week per son. Pt unsure ofif she hit her head or not with the falls. Pt reports right hip pain. Pt son reports he is wanting her admitted for physical therapy. Pt reports shefalls because her right leg gives out. TECHNIQUE: 1 radiographic view(s) of the chest. COMPARISON: 07/29/2022 , 04/11/2019 FINDINGS: LUNGS: There is mild left retrocardiac opacity, favored to beatelectasis. Please correlate clinically to exclude pneumonia.. Lung volumes aresmall. No pleural effusion or pneumothorax is seen. Calcified granulomas arenoted HEART/MEDIASTINUM: Allowing for differences in technique, unchanged cardiomediastinal contours and heart size. LINES/TUBES: None. 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 There are severe glenohumeral degenerative changes. Visualized upper abdomen is unremarkable IMPRESSION: Mild left retrocardiac opacity, favored to be atelectasis. Pleasecorrelate clinically to exclude pneumonia. 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 THIS IS AN ELECTRONICALLY VERIFIED FINAL REPORT 02/24/2024 7:27 PM - Electronically signed by Shukri Celestin M.D. MZ: MZ Report ID: [id number] Reading Location: [place] [address] Carlos Manuel Herron MD IMG XR PROCEDURES Final Resu lt * CT Cervical Spine WO Contrast (02/24/2024 5:54 PM ORTHOTIC PRACTITIONER) Anatomical Region Laterality Modality Spine N/A Computed Tomogra phy 02/24/2024 7:21 PM ORTHOTIC PRACTITIONER Narrative 02/24/2024 7:26 PM ORTHOTIC PRACTITIONER EXAM DESCRIPTION: CT CERVICAL SPINE WO CONTRAST REASON FOR STUDY: Neck trauma (Age >= 65y) C/o multiple falls over the last week per son. Pt unsure of if she hit her head or not with the falls.Pt states she does have some neck pain. Pt reports she falls because her right leg gives out. TECHNIQUE: Axial images through the cervical spine with sagittal and coronal reformatted images. Automated exposure control was used as a dose optimization technique for this examination. COMPARISON: 05/30/2022 FINDINGS: ALIGNMENT: There is reversal of the normal cervical lordosis from. VERTEBRAE: No fracture. Vertebral body heights well-maintained. DISCS: There are opportunity Lucy there is osteophyte formation at multiple levels. There is disc space narrowing at C4-C5, C5-C6, C6-C7 and C7-T1. HARDWARE: None in the spine. INDIVIDUAL LEVELS: C1-T1: There is facet hypertrophy and neural foraminal stenosis. UPPER THORACIC: Incompletely imaged. No significant osseous spinal stenosis or osseous neural foraminal stenosis. SKULL BASE: No significant finding. LUNG APICES: Density in the scarring in the left lung apex. NECK SOFT TISSUES: Stable left thyroid nodule containing calcifications. OTHER: No other significant findings. IMPRESSION: No evidence of cervical spine fracture. Reversal of the normal cervical lordosis. This could be secondary to patient positioning or muscular spasm. 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 Stable left thyroid nodule. Additional findings as above. THIS IS AN ELECTRONICALLY VERIFIED FINAL REPORT 02/24/2024 7:26 PM - Electronically signed by Stefania Man M.D. LL: LL Report ID: [id number] Reading Location: [place] [address] Procedure Note Stefania Man MD - 02/24/2024 EXAM DESCRIPTION: CT CERVICAL SPINE WO CONTRAST REASON FOR STUDY: Neck trauma (Age >= 66y) C/o multiple falls over the last week per son. Pt unsure of if she hither head or not with the falls.Pt states she does have some neck pain. Ptreports she falls because her right leg gives out. TECHNIQUE: Axial images through the cervical spine with sagittal andcoronal reformatted images. Automated exposure control was used as a doseoptimization technique for this examination. COMPARISON: 05/30/2022 FINDINGS: ALIGNMENT: There is reversal of the normal cervical lordosis from. VERTEBRAE: No fracture. Vertebral body heights well-maintained. DISCS: There are opportunity Lcuy there is osteophyte formation atmultiple levels. There is disc space narrowing at C4-C5, C5-C6, C6-C7 and C7-T1. HARDWARE: None in the spine. INDIVIDUAL LEVELS: C1-T1: There is facet hypertrophy and neural foraminal stenosis. UPPER THORACIC: Incompletely imaged. No significant osseous spinalstenosis or osseous neural foraminal stenosis. SKULL BASE: No significant finding. LUNG APICES: Density in the scarring in the left lung apex. NECK SOFT TISSUES: Stable left thyroid nodule containing calcifications. OTHER: No other significant findings. IMPRESSION: No evidence of cervical spine fracture. Reversal of the normal cervical lordosis. This could be secondary topatient positioning or muscular spasm. 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 Stable left thyroid nodule. Additional findings as above. THIS IS AN ELECTRONICALLY VERIFIED FINAL REPORT 02/24/2024 7:26 PM - Electronically signed by Stefania Man M.D. LL: LA NENA Report ID: [id number] Reading Location: [id number] us Carlos Manuel Herron MD IMG CT PROCEDURES Final Resu lt * CT Head WO Contrast (02/24/2024 5:54 PM ORTHOTIC PRACTITIONER) Anatomical Region Laterality Modality Head and Neck N/A Computed Tomogra phy 02/24/2024 7:17 PM ORTHOTIC PRACTITIONER Narrative 02/24/2024 7:20 PM ORTHOTIC PRACTITIONER EXAM DESCRIPTION: CT HEAD WO CONTRAST REASON FOR STUDY: Head trauma, minor (Age >= 65y) C/o multiple falls over the last week per son. Pt unsure of if she hit her head or not with the falls.Pt states she does have some neck pain. Pt reports she falls because her right leg gives out. TECHNIQUE: Axial images acquired through the brain without intravenous contrast. Images stored on PACS. Automated exposure control was used as a dose optimization technique for this examination. COMPARISON: 01/13/2023 FINDINGS: BRAIN: Diffuse atrophy is present. No hemorrhage, edema or mass effect. No recent infarct. Periventricular white matter hypodensities are most likely small vessel ischemic disease. EXTRA-AXIAL SPACES: Additional there are malleolar antrostomies and consult if tearing is. CALVARIUM: No fracture. SINUSES/MASTOIDS: No fluid or mucosal thickening. ORBITS: No significant abnormality. OTHER: No other significant abnormality. IMPRESSION: No evidence of acute intracranial pathology. Senescent changes with atrophy and small vessel ischemic disease. THIS IS AN ELECTRONICALLY VERIFIED FINAL REPORT 02/24/2024 7:20 PM - Electronically signed by Stefania Man M.D. LL: LL Report ID: [id number] Reading Location: [id number] Procedure Note Stefania Man MD - 02/24/2024 EXAM DESCRIPTION: CT HEAD WO CONTRAST REASON FOR STUDY: Head trauma, minor (Age >= 65y) C/o multiple falls over the last week per son. Pt unsure of if she hither head or not with the falls.Pt states she does have some neck pain. Ptreports she falls because her right leg gives out. TECHNIQUE: Axial images acquired through the brain without intravenous contrast. Images stored on PACS. Automated exposure control was used asa dose optimization technique for this examination. COMPARISON: 01/13/2023 FINDINGS: BRAIN: Diffuse atrophy is present. No hemorrhage, edema or mass effect.No recent infarct. Periventricular white matter hypodensities are mostlikely small vessel ischemic disease. EXTRA-AXIAL SPACES: Additional there are malleolar antrostomies andconsult if tearing is. CALVARIUM: No fracture. SINUSES/MASTOIDS: No fluid or mucosal thickening. ORBITS: No significant abnormality. OTHER: No other significant abnormality. IMPRESSION: No evidence of acute intracranial pathology. Senescent changes with atrophy and small vessel ischemic disease. THIS IS AN ELECTRONICALLY VERIFIED FINAL REPORT 02/24/2024 7:20 PM - Electronically signed by Stefania Man M.D. LL: LA NENA Report ID: [id number] Reading Location: [id number] us Carlos Manuel Herron MD IMG CT PROCEDURES Final Resu lt * eGFR (02/24/2024 3:52 PM ORTHOTIC PRACTITIONER) eGFR 86 >=60 mL/min/1. 73 m2 Comment: Interpretive Data Reference Interval Normal >/= 90 mL/min/1.73m2 Mildly decreased* 60 - 89 mL/min/1.73m2 Mildly to moderately decreased 45 - 59 mL/min/1.73m2 Moderately to severely decreased 30 - 44 mL/min/1.73m2 Severely decreased 15 - 29 mL/min/1.73m2 Kidney Failure < 15 mL/min/1.73m2 *Relative to young adult level Estimated glomerular filtration rate is determined by the 2020 CKD-EPI equation recommended by the National Kidney Foundation (A Unifying Approach to GFR Estimation: Recommendations of the NKF-ASK Task Force on Reassessing the Inclusion of Race in Diagnosing Kidney Disease, JASN 2020). The CKD-EPI equation should not be used for patients with unstable renal function and has not been validated in children and those over 70. Current interpretive data was last reviewed 2020. Blood 02/24/2024 3:52 PM ORTHOTIC PRACTITIONER 02/24/2024 3:59 PM ORTHOTIC PRACTITIONER us Esteban Ruth MD LAB BLOOD ORDERABLES Final Res ult [facility] ([place]) 1 [facility] Department [place] [address] * Differential, auto (02/24/2024 3:52 PM ORTHOTIC PRACTITIONER) Neutrophil abs 4.4 1.5 - 6.5 K/cumm Imm gran abs 0.0 0.0 - 0.1 K/cumm [facility] ([place]) Lymphocyte abs 2.2 0.8 - 3.3 K/cumm [facility] ([place]) Monocyte abs 0.7 0.2 - 0.8 K/cumm [facility] ([place]) Eosinophil abs 0.2 0.0 - 0.5 K/cumm [facility] ([place]) Basophil abs 0.0 0.0 - 0.1 K/cumm [facility] ([place]) Neutrophil pct 58.8 % [facility] ([place]) Comment: Interpretive Data Percent cell count reference ranges are not reported, since discordance with absolute values may lead to misinterpretation of CBC data. Current Interpretive Data was last revised on 2017. Imm gran pct 0.3 % [facility] ([place]) Comment: Interpretive Data Percent cell count reference ranges are not reported, since discordance with absolute values may lead to misinterpretation of CBC data. Current Interpretive Data was last revised on 2017. Lymphocyte pct 28.7 % [facility] ([place]) Comment: Interpretive Data Percent cell count reference ranges are not reported, since discordance with absolute values may lead to misinterpretation of CBC data. Current Interpretive Data was last revised on 2017. Monocyte pct 9.6 % [facility] ([place]) Comment: Interpretive Data Percent cell count reference ranges are not reported, since discordance with absolute values may lead to misinterpretation of CBC data. Current Interpretive Data was last revised on 2017. Eosinophil pct 2.3 % [facility] ([place]) Comment: Interpretive Data Percent cell count reference ranges are not reported, since discordance with absolute values may lead to misinterpretation of CBC data. Current Interpretive Data was last revised on 2017. Basophil pct 0.3 % [facility] ([place]) Comment: Interpretive Data Percent cell count reference ranges are not reported, since discordance with absolute values may lead to misinterpretation of CBC data. Current Interpretive Data was last revised on 2017. Blood 02/24/2024 3:52 PM ORTHOTIC PRACTITIONER 02/24/2024 3:59 PM ORTHOTIC PRACTITIONER us Esteban Ruth MD LAB BLOOD ORDERABLES Final Res ult [facility] ([place]) 1 [facility] Department [place] [address] * (ABNORMAL) CBC with auto differential (02/24/2024 3:52 PM ORTHOTIC PRACTITIONER) WBC 7.5 3.8 - 9.9 K/cumm Hgb 12.4 11.9 - 15.5 g/dL [facility] ([place]) Hct 39.5 35.6 - 45.5 % [facility] ([place]) Plt 240 150 - 400 K/cumm [facility] ([place]) MPV 8.9(L) 9.1 - 12.3 fL [facility] ([place]) RBC 4.69 3.90 - 5.20 M/cumm [facility] ([place]) MCV 84.2 81.3 - 96.4 fL [facility] ([place]) MCH 26.4(L) 27.1 - 33.3 pg [facility] MCHC 31.4(L) 32.3 - 35.7 g/dL [facility] RDW CV 18.4(H) 11.1 - 14.9 % [facility] RDW SD 56.0(H) 35.7 - 48.1 fL [facility] ([place] NRBC abs 0.00 0.00 - 0.01 K/cumm [facility] ([place] Blood 02/24/2024 3:52 PM ORTHOTIC PRACTITIONER 02/24/2024 3:59 PM ORTHOTIC PRACTITIONER us Esteban Ruth MD LAB BLOOD ORDERABLES Final Res ult [facility] ([place]) 1 [facility] Department [place] [address] * (ABNORMAL) Comprehensive metabolic panel (02/24/2024 3:52 PM ORTHOTIC PRACTITIONER) Sodium 138 135 - 145 mmol/L Potassium, pl 4.6 3.3 - 4.9 mmol/L [facility] Chloride 100 97 - 110 mmol/L [facility]) CO2 28 22 - 32 mmol/L [facility] ([place] Anion gap 10 2 - 15 mmol/L [facility] ([place]) BUN 12 6 - 25 mg/dL [facility] Creatinine 0.61 0.60 - 1.10 mg/dL [facility] ([place]) Glucose 139 70 - 199 mg/dL [facility] ([place]) Comment: Interpretive Data Fasting glucose >/= 126 mg/dl is diagnostic for diabetes. Fasting is defined as no caloric intake for at least 8 hours. Fasting glucose between 100 mg/dl to 125 mg/dl is diagnostic of prediabetes. In a patient with classic symptoms of hyperglycemia or hyperglycemic crisis, a random glucose >/= 200 mg/dl is diagnostic for diabetes. In the absence of unequivocal hyperglycemia, results should be confirmed by repeat testing. The classification and Diagnosis of Diabetes Diabetes Care 2021; 46: S19-S40. Current interpretive data was last revised 2022. Calcium 10.7(H) 8.5 - 10.3 mg/dL [facility] ([place]) Bilirubin, total 0.3 0.1 - 1.2 mg/dL [facility] ([place]) Protein, pl 6.9 6.5 - 8.5 g/dL [facility] ([place]) Albumin 3.9 3.5 - 5.0 g/dL [facility] ([place]) Alk phos 43 40 - 130 Units/L [facility] ([place]) ALT 22 7 - 45 Units/L [facility] ([place] AST 24 10 - 45 Units/L [facility] ([place]) Blood 02/24/2024 3:52 PM ORTHOTIC PRACTITIONER 02/24/2024 3:59 PM ORTHOTIC PRACTITIONER Esteban Ruth MD LAB BLOOD ORDERABLES Final Res ult Performing Organization Address [facility] Co de Phone Number [facility] ([place]) 1 [facility] Department [place] [address] * ECG 12 lead (02/24/2024 3:44 PM ORTHOTIC PRACTITIONER) 02/24/2024 3:44 PM ORTHOTIC PRACTITIONER Narrative [facility] - 02/24/2024 6:06 PM ORTHOTIC PRACTITIONER Vent Rate: 76 bpm RR Interval: 783 msec FL Interval: 182 msec QRS Duration: 102 msec QT Interval: 405 msec QTC Interval: 436 msec P-R-T [place]: 62 - 15 - 32 degrees IMPRESSION: SINUS RHYTHM WITH OCCASIONAL SUPRAVENTRICULAR PREMATURE COMPLEXES POSSIBLE ANTERIOR MYOCARDIAL INFARCTION , PROBABLY OLD [30 ms Q WAVE IN V3/V4, OR R < 0.2 mV IN V4] BORDERLINE ECG NO CHANGE FROM PREVIOUS TRACING NOTED Electronically Signed By: Michael Hinojosa MD Esteban Ruth MD ECG ORDERABLES Final Result Performing Organization Address [facility] de Phone Number [facility] * XR Hip Right 2 or 3 Views W Pelvis (02/24/2024 3:22 PM ORTHOTIC PRACTITIONER) Anatomical Region Laterality Modality Lower Extremities, Hip, Pelvis Right C omputed Radiography 02/24/2024 3:39 PM ORTHOTIC PRACTITIONER Narrative 02/24/2024 3:41 PM ORTHOTIC PRACTITIONER EXAM DESCRIPTION: XR HIP RIGHT 2 OR 3 VIEWS W PELVIS REASON FOR STUDY: falls, pain Right hip pain No major trauma TECHNIQUE: Single frontal radiograph of the pelvis is obtained with 2 radiographs of the right hip with frontal and lateral projections. COMPARISON: 01/13/2023 FINDINGS: There is mild osteopenia. There is no definite evidence of acute displaced fracture or dislocation. There are old healed fracture deformities noted involving the right superior and inferior pubic rami. There are degenerative changes of the bilateral hips with joint space narrowing, mild sclerosis, and spurring. There are degenerative changes of the visualized lower lumbar spine. There are degenerative changes bilateral sacroiliac joints with joint space narrowing and mild sclerosis. There are scattered faint vascular calcifications noted. IMPRESSION: Mild osteopenia with degenerative changes of the bilateral hips without definite evidence of acute displaced fracture or dislocation. THIS IS AN ELECTRONICALLY VERIFIED FINAL REPORT 02/24/2024 3:41 PM - Electronically signed by Kristan Loera D.O. PS: PS Report ID: [id number] Reading Location: [place] [address] Procedure Note Kristan Loera, DO - 02/24/2024 EXAM DESCRIPTION: XR HIP RIGHT 2 OR 3 VIEWS W PELVIS REASON FOR STUDY: falls, pain Right hip pain No major trauma TECHNIQUE: Single frontal radiograph of the pelvis is obtained with 2 radiographs of the right hip with frontal and lateral projections. COMPARISON: 01/13/2023 FINDINGS: There is mild osteopenia. There is no definite evidence of acutedisplaced fracture or dislocation. There are old healed fracture deformities noted involving the right superior and inferior pubic rami. There aredegenerative changes of the bilateral hips with joint space narrowing, mild sclerosis,and spurring. There are degenerative changes of the visualized lower lumbar spine. There are degenerative changes bilateral sacroiliac joints withjoint space narrowing and mild sclerosis. There are scattered faint vascular calcifications noted. IMPRESSION: Mild osteopenia with degenerative changes of the bilateral hips without definite evidence of acute displaced fracture or dislocation. THIS IS AN ELECTRONICALLY VERIFIED FINAL REPORT 02/24/2024 3:41 PM - Electronically signed by Kristan Loera D.O. PS: PS Report ID: [id number] Reading Location: [place] [address] Carlos Manuel Herron MD IMG XR PROCEDURES Final Resu lt * (ABNORMAL) DIABETES FOOT EXAM (01/06/2024 2:56 PM ORTHOTIC PRACTITIONER) Pathologist [facility] [place] SCRIBED DIABETIC FOOT EXAM Abnormal Historical Provider HEALTH MAINTENANCE Edited Result - Final * Albumin Creatinine Ratio, Urine (09/04/2023 11:40 AM CDT) [facility] Albumin Ur 16.8 mg/L Comment: Interpretive Data No reference range established. Current interpretive data was last revised 2018. Testing performed by: [address], [address] Creatinine Ur 91.7 mg/dL [facility] Comment: Interpretive Data No reference range established. Current interpretive data was last revised 2018. Testing performed by: [address] [address] Albumin Creatinine Ratio, Ur 18 1 - 29 mg/g [facility] Comment:Testing performed by : [address] [address] Urine 09/04/2023 11:4 0 AM CDT 09/04/2023 6:14 PM CDT Elsy Chance MD LAB URINE ORDERABLES Final Result [address] Department [place] [address] * (ABNORMAL) Hemoglobin A1c (09/01/2023 12:34 PM CDT) [facility] Hgb A1C 6.2(H) 4.0 - 5.6 % Comment:Testing performed by : [address] [place]., [address] Estimated Average Glucose 131 mg/dL [facility] Comment: The ADA recommends reporting an estimated Average Glucose (eAG) with all Hemoglobin A1c results using the equation derived from a study of 507 normal and diabetic adults. Minority populations were underrepresented and children were not included. (Diabetes Care 31:6805-9772, 2008). The eAG is not equivalent to a fasting glucose. Testing performed by: [facility], [address] [place] [address]., [address] Blood 09/01/2023 12:3 4 PM CDT 09/01/2023 12:34 PM CDT Elsy Chance MD LAB BLOOD ORDERABLES Final Result [facility] [address] Department of Laboratories [place] [id number] * (ABNORMAL) Lipid panel (10/23/2017 10:06 AM CDT) Cholesterol 201(H) <200 mg/dL [facility] HDL 46(L) >50 mg/dL [facility] Triglycerides 210(H) <150 mg/dL [facility] LDL 122(H) mg/dL (calc) [facility] Comment: Reference range: <100 Desirable range <100 mg/dL for primary prevention; <70 mg/dL for patients with CHD or diabetic patients with > or = 2 CHD risk factors. LDL-C is now calculated using the Rinku calculation, which is a validated novel method providing better accuracy than the Friedewald equation in the estimation of LDL-C. Yaakov MORENO et al. CARINA. 2013;310(19): 0362-0337 (http://education.[employer]/faq/FVI538) Chol/HDL ratio 4.4 <5.0 (calc) [facility] [place] Non-HDL, (LDL+VLDL) 155(H) <130 mg/dL (calc) [facility] Comment: For patients with diabetes plus 1 major ASCVD risk factor, treating to a non-HDL-C goal of <100 mg/dL (LDL-C of <70 mg/dL) is considered a therapeutic option. Blood specimen (specimen) 10/23/2017 10:06 AM CDT 10/23/2017 10:06 AM CDT Narrative [facility] - 10/24/2017 1:58 AM CDT FASTING:YES AN UPDATE OR CORRECTION HAS BEEN MADE TO NAME FASTING: YES Resulting Agency Comment Performing Organization Information: Site ID: [id number] Name: Ashley Lawrence Address: [address] [id number] Director: Juan Pablo Kennedy D.O., MPH us Elsy Chance MD LAB BLOOD ORDERABLES Final Result [facility] Steward from Last 3 Months or Most Recently Relevant to Health Maintenance Additional Health Concerns Infection Onset Date Last Indicated COVID: Recovered Comment:Added based on recent COVID infection. 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 Expl anation ADVANCE DIRECTIVE 04/08/2024 3:26 PM POWER OF POWDER ROOM ATTENDANT-MEDICAL ADVANCE DIRECTIVE 05/06/2018 2:02 PM DNR ADVANCE DIRECTIVE 01/23/2011 POWER OF A TTORNEY-MEDICAL * Full Code (Latest Code Status on File) Date Activated Date Inactivated Comments 02/24/2024 8:09 PM 03/02/2024 6:08 PM * Full Code Date Activated Date Inactivated Comments 01/19/2019 10:42 AM 01/19/2019 5:12 PM * Full Code Date Activated Date Inactivated Comments 01/19/2019 10:42 AM 01/19/2019 10:42 AM * Full Code Date Activated Date Inactivated Comments 10/19/2018 10:06 AM 10/19/2018 3:57 PM Care Teams Fashion Stylist Relationship Specialty Start Date End Date Elsy Chance MD PCP - General 05/10/16 Hayden Minor DC Chiropractic Medicine 09/17/16 Robby Ruiz MD [address] [place] [address] [place] [address] Consulting Physician Ophthalmology 09/17/16 Mateo Hogan MD [address] [place] [address] Consulting Physician Ophthalmology 09/17/16 Lupis Linares MD [address] [facility] [address] [place] [address] Consulting Physician Pain Management 09/17/16 Demarcus Cardenas MD [address] [place] [address] [address] [place] [address] Consulting Physician Gastroenterology 09/17/16 Enrrique Nath MD [address] [place] [address] [address] [place] [address] Consulting Physician Rheumatology 11/05/17 [place] [address] [address] [facility] [address] [place] [address] Consulting Physician Cardiovascular Disease 11/05/17 Alexey Carrera [place] [address] Referring Physician Allergy and Immunology 05/12/19
--- OUTSIDE RECORDS SUMMARY | 2024-05-12 11:26 | XMS_ITS | Clinical Summary ---
Author Organization [facility] Address [address] [place] [address] Phone Care Team Providers Care Data Modeler Name Role Phone JUAN DAVID STONE Primary Care Provider [phone] Reason for Visit and Chief Complaint The Chief Complaint is: cough for 1 week. pt was here on 07/13, cough is not any better Problems Includes: Problems addressed during this encounter and other active Problems All Visits Onset Date Resolved Date Provider Condition S tatus Depressive Disorder NEC 05/08/2010 SUKUMAR NGUYEN M.D. Active Last Documented On 1 1:49PM ; [facility] HYPERLIPIDEMIA NEC/NOS 05/08/2010 KANDICE BADILLO M.D. Active Last Documented On 1 1:46PM ; [facility] IRRITABLE BOWEL SYNDROME 05/08/2010 KANDICE RUSH M.D. Active Last Documented On 1 1:48PM ; [facility] RHEUMATOID ARTHRITIS 05/08/2010 KANDICE NELSON M.D. Active Last Documented On 1 1:46PM ; [facility] ACUTE SINUSITIS NOS 05/25/2009 KANDICE ROBERST M.DParvez Active Last Documented On 0 12:25PM ; [facility] Arthropathy NOS-Unspec 05/25/2009 KANDICE BADILLO M.D. Active Last Documented On 0 12:25PM ; [facility] DMII UNSPF UNCNTRLD 05/25/2009 KANDICE ShelbyTaran Active Last Documented On 0 12:24PM ; [facility] FIBROMATOSES NEC 05/25/2009 KANDICE NGUYEN M.D. Active Last Documented On 0 12:25PM ; [facility] HYPERTENSION NOS 05/25/2009 KANDICE NGUYEN M.D. Active Last Documented On 0 12:23PM ; [facility] Plan of Treatment We discussed that Briana's lungs sound clear today. If symptoms worsen, we discussed getting a chest X-ray. Finish the doxycycline. Stay well hydrated and get plenty of rest. Can take OTC medications for symptoms such as expectorant and cough medication if needed. Discussed s/s of respiratory distress and when to go to ER. Can use humidifier or steam inhalation to help with chest congestion. If symptoms worsen or do not improve call/return to clinic. - Last Documented On 07/21/2023 1:01PM ; [facility] Instructions to patient Intervention and counseling on cessation of tobacco use Last Documented On 4 12:20PM ; [facility] Assessments Includes: Assessments from this encounter Findings - Cough - Last Documented On 07/21/2023 1:01PM ; [facility] - Acute bronchitis - Last Documented On 07/21/2023 1:01PM ; [facility] Instructions Includes: Instructions from this encounter Instructions to patient Intervention and counseling on cessation of tobacco use Last Documented On 4 12:20PM ; [facility] Medical Equipment - Implanted Devices Includes: Current Devices No Medical Equipment Recorded Medications Includes: Medications discussed during this encounter and other current Medications Discontinued / Stopped on this date MAGALYS CONNOR on 12/31/2021 Lagevrio 200 MG Oral Capsule Provider: MAGALYS CONNOR Diagnosis: COVID-19 Last Documented On 4 12:18PM By Melyssa RUSSELL ; [facility] New / Renewed during this visit AMANDA LYNCH on 07/21/2023 Benzonatate 200 MG Oral Capsule Provider: AMANDA STILES [employer] 10 day supply: 30 capsule, 0 refills Diagnosis: Acute cough Take 1 tablet three times pe r day as needed Pharmacy: [id number], [phone] - Last Documented On 4 12:50PM By Amanda Stephens APRN [employer] ; [facility] Current Medications (continue as prescribed) Donepezil HCl 5 MG Oral Tablet 07/21/2023 Provider: Diagnosis: Last Documented On 4 12:19PM By Melyssa RUSSELL ; [facility] Jardiance 25 MG Oral Tablet 12/25/2021 Provider: JUAN DAVID STONE Diagnosis: Last Documented On 2 2:09PM By Magalys CONNOR ; [facility] Labetalol HCl 200 MG Oral Tablet 12/25/2021 Provider : JUAN DAVID STONE Diagnosis: Last Documented On 2 2:09PM By Magalys CONNOR ; [facility] metFORMIN HCl 500 MG Oral Tablet 12/25/2021 Provider : JUAN DAVID STONE Diagnosis: Last Documented On 2 2:09PM By Magalys CONNOR ; [facility] Rosuvastatin Calcium 10 MG Oral Tablet 12/25/2021 Pr ovider: JUAN DAVID STONE Diagnosis: Last Documented On 2 2:09PM By Magalys CONNOR ; [facility] Rybelsus 14 MG Oral Tablet 12/25/2021 Provider: Monty STONE Diagnosis: Last Documented On 2 2:09PM By Magalys CONNOR ; [facility] Hydroxychloroquine Sulfate 200 MG Oral Tablet 12/26/19 Provider: Diagnosis: Last Documented On 2 2:09PM By Magalys CONNOR ; [facility] Famotidine 20 MG Oral Tablet 12/25/2021 Provider: JUAN DAVID STONE Diagnosis: Last Documented On 2 2:09PM By Magalys CONNOR ; [facility] DULoxetine HCl 60 MG Oral Capsule Delayed Releas e Particles 12/25/2021 Provider: Diagnosis: Last Documented On 2 2:09PM By Magalys CONNOR ; [facility] buPROPion HCl ER (XL) 150 MG Oral Tablet Extended Release 24 Hour 12/25/2021 Provider: JUAN DAVID DEUTSCH Diagnosis: Last Documented On 2 2:09PM By Magalys CONNOR ; [facility] Medications Administered Includes: Administered Medications from this encounter No Administered Medications Recorded Vital Signs Includes: Vital Signs from this encounter Vital Name 07/21/2023 12:20P Pulse Rate-Sitting (bpm) 70 Temp-Oral (F) 97.8 Weight (lb) 152 Oxygen Saturation (%) 96 Last Documented: On 07/21/2023 12:20P M ; [facility] Results Includes: Results discussed during this encounter No Results Recorded For Specified Dates History of Present Illness Includes: History of Present Illness from this encounter HPI BRIANA ROSSI is an 87 year old female. - Allergy list reviewed - Medication list reviewed - Feeling tired - Feeling poorly (malaise) - No fever - No headache - No eye symptoms - No ear symptoms - No nasal discharge - No postnasal drip - No nasal passage blockage (stuffiness) - No sore throat - No chest pain or discomfort - No chest tightness or heavy pressure - Cough - No dyspnea - No wheezing - Normal appetite - No nausea - No vomiting - No abdominal pain - No diarrhea - No myalgia - No taste decreased Briana is a 87-year-old female who presents to the [facility] with cough x 1 week. She was seen 1 week ago in the [facility] for a cough and given doxycycline BID for 10 days. She reports she has been taking that as prescribed. She denies any fevers. She reports she has had some chest soreness d/t the cough. No chest pain of difficulty breathing. Social History Description Last Updated Tobacco non-user 07/21/2023 Last Documented On 4 1:01PM ; [facility] Smoking Status Unknown Procedures and Surgical History Includes: Procedures from this encounter Procedures Code Diagnosis Performing Provider Service L ocation Service Date Pt to use OTC fever/pain product as needed per product instruction.~ Last Documented On 4 12:36PM ; [facility] Pt to use OTC cough product as needed pe r product instruction.~ Last Documented On 4 12:36PM ; [facility] Pt to use OTC expectorant product as nee ded per product instruction.~ Last Documented On 4 12:36PM ; [facility] patient to call if symptoms worsen or not improved in 3-5 days to update patient's status Last Documented On 4 12:36PM ; [facility] intervention and 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 Head: No headache. Otolaryngeal: No earache, no nasal discharge, and no sore throat. Cardiovascular: No chest pain or discomfort. Pulmonary: No dyspnea. Cough. No wheezing. Gastrointestinal: No vomiting, no abdominal pain, and no diarrhea. Musculoskeletal: No muscle aches. Neurological: No Loss of taste or smell. Skin: No skin symptoms. Mental Status Includes: Mental Status from this encounter Description Oriented to time, place, and person Functional Status Includes: Functional Status from this encounter No Functional Status Recorded Physical Exam Includes: Physical Exam from this encounter Allergies Includes: Active Allergies Substance Type Reaction Onset Date Resolved Date Statu s Keflex Allergy 05/25/2009 Active Last Documented On 4 12:19PM ; [facility] Iodine Allergy 05/25/2009 Active Last Documented On 4 12:19PM ; [facility] Codeine Allergy 05/25/2009 Active Last Documented On 4 12:19PM ; [facility] Biaxin Allergy 05/25/2009 Active Last Documented On 4 12:19PM ; [facility] Encounters Encounter Provider Location Date Check-In Time Check-Out Time Diagnosis COVID SICK VISIT- ESTABLISHED PATIENT AMANDA STEPHENS FOOD BEVERAGE 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-[employer] [facility] 07/21/19 24 12:17PM 12:38PM Assessment of Cough,Acute Bronchitis Insurance Includes: Active Insurance Policies Plan Name Member ID Group # Subscriber Relationship Effect edgar Dates 1 - [employer] [id number] BRIANA ROSSI Self Clinical Notes Includes: Clinical Notes from this encounter * Progress note Date Encounter Last Documented by 07/21/2023 COVID SICK VISIT- ESTABLISHED MARZENA GLASS Last documented on 07/21/2023; 1:01 PM, AMANDA STEPHENS APRN-[employer]; [facility] Chief Complaint The Chief Complaint is: Cough for 1 week. pt was here on 07/13, cough is not any better. History of Present Illness BRIANA ROSSI is an 87 year old female. - Allergy list reviewed - Medication list reviewed - Feeling tired - Feeling poorly (malaise) - No fever - No headache - No eye symptoms - No ear symptoms - No nasal discharge - No postnasal drip - No nasal passage blockage (stuffiness) - No sore throat - No chest pain or discomfort - No chest tightness or heavy pressure - Cough - No dyspnea - No wheezing - Normal appetite - No nausea - No vomiting - No abdominal pain - No diarrhea - No myalgia - No taste decreased Briana is a 87-year-old female who presents to the [facility] with cough x 1 week. She was seen 1 week ago in the [facility] for a cough and given doxycycline BID for 10 days. She reports she has been taking that as prescribed. She denies any fevers. She reports she has had some chest soreness d/t the cough. No chest pain of difficulty breathing. Social History Tobacco use: Tobacco non-user. Review Of Systems Systemic: No fever. Head: No headache. Otolaryngeal: No earache, no nasal discharge, and no sore throat. Cardiovascular: No chest pain or discomfort. Pulmonary: No dyspnea. Cough. No wheezing. Gastrointestinal: No vomiting, no abdominal pain, and no diarrhea. Musculoskeletal: No muscle aches. Neurological: No Loss of taste or smell. Skin: No skin symptoms. Physical Findings - Vitals taken 07/21/2023 12:20 pm Pulse Rate-Sitting 70 bpm Temp-Oral 97.8 F Weight 152 lbs Oxygen Saturation 96 % General Appearance: - Awake. - Alert. - Well developed. - Well nourished. - Well hydrated. - In no acute distress. Eyes: General/bilateral: Pupils: - PERRLA. Ears: Right Ear: External Auditory Canal: - Normal. Tympanic Membrane: - Normal. - Not erythematous. Left Ear: External Auditory Canal: - Normal. Tympanic Membrane: - Normal. - Not erythematous. Nose: General/bilateral: Discharge: - No nasal discharge. Sinus Tenderness: - No sinus tenderness. Pharynx: Oropharynx: - Tonsils showed no abnormalities. - Tonsils were not erythematous. - Tonsils were not enlarged. - Tonsils showed no exudate. Lymph Nodes: - Normal. Lungs: - Normal breath sounds/voice sounds. - No wheezing was heard. - No rhonchi were heard. - No rales/crackles were heard. Cardiovascular: Heart Rate And Rhythm: - Normal. Murmurs: - No murmurs were heard. Neurological: - Oriented to time, place, and person. Gait And Stance: - Normal. Assessment - Cough - Acute bronchitis Therapy - Intervention and counseling on cessation of tobacco use. - Patient to call if symptoms worsen or not improved in 3-5 days to update patient's status. Pt to use OTC fever/pain product as needed per product instruction. . Pt to use OTC cough product as needed per product instruction. . Pt to use OTC expectorant product as needed per product instruction. . Plan StartCited - Acute cough Benzonatate 200 MG capsule Take 1 tablet three times per day as needed, 10 days, 0 refills EndCited We discussed that Briana's lungs sound clear today. If symptoms worsen, we discussed getting a chest X-ray. Finish the doxycycline. Stay well hydrated and get plenty of rest. Can take OTC medications for symptoms such as expectorant and cough medication if needed. Discussed s/s of respiratory distress and when to go to ER. Can use humidifier or steam inhalation to help with chest congestion. If symptoms worsen or do not improve call/return to clinic. Practice Management Use of tobacco assessment performed Review of medications documented.
--- OUTSIDE RECORDS SUMMARY | 2024-05-12 11:26 | XMS_ITS | Clinical Summary ---
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 Name Role Phone Elsy Chance MD Primary Care Provider Hayden Minor HI Unavailable [phone] Robby Ruiz MD Unavailable [phone] Mateo Hogan MD Unavailable [phone] Lupis Linares MD Unavailable [phone] Demarcus Cardenas MD Unavailable [phone] Enrrique Nath MD Unavailable [phone] Ed Zavala MD Unavailable [phone] Alexey Carrera MD Unavailable [phone] Allergies Active Allergy Reactions Criticality Noted Date [...] Medications blood-glucose meter (OneTouch Verio Flex meter) [facility] Use to test glucose levels once daily [...] breath 18 g 5 023 Active vit C,D-Df-ipwqg-lutein-z eaxan (PreserVision AREDS-2) 250-90-40-1 mg capsuleIndications: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 She should take 1 tab 13H prior, 1 tab 7H prior and 1 tab 1H prior to the CT due to dye allergy 3 tablet Active diphenhydrAMINE (BENADRYL) 50 mg capsule Take 1 tab 1H prior to CT-scheduled for 04/14/24 1 capsule Active budesonide-formoteroL (SYMBICORT) 160-4.5 mcg/actuation inhaler Inhale 2 puffs 2 (two) times a day Rinse mouth with water after use. Do not swallow. Active empagliflozin (Jardiance) 25 mg tabletIndications:Typ e 2 diabetes mellitus with other circulatory complication, without long-term current use of insulin ([facility]),Diastolic dysfunction TAKE 1 TABLET (25 MG TOTAL) BY MOUTH DAILY 30 tablet Active mirabegron ER (MYRBETRIQ) 25 mg tablet extended release 24 hrIndications:Inconti nence of urine in female TAKE 1 TABLET (25 MG TOTAL) BY MOUTH DAILY 30 tablet Active buPROPion XL (WELLBUTRIN XL) 150 mg 24 hr tabletIndications:Moo d disorder,Chronic pain disorder TAKE 1 TABLET (150 MG TOTAL) BY MOUTH DAILY 30 tablet Active labetaloL (NORMODYNE,TRANDATE) 100 mg tabletIndications:Chica stolic dysfunction,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),Hypertension complicating diabetes (HCC) TAKE 1 TABLET (100 MG TOTAL) BY MOUTH TWO (2) (TWO) TIMES a DAY 60 tablet 025 Active metFORMIN (GLUCOPHAGE) 500 mg tabletIndications:Typ e 2 diabetes mellitus with other circulatory complication, without long-term current use of insulin (HCC) TAKE 1 TABLET (500 MG TOTAL) BY [...] complication, without long-term current use of insulin ([facility]),Type 2 diabetes mellitus (HCC) Take 1 tablet [...] 02/14/2023 Assessment & Plan (01/26/2024 9:22 PM SALES REP): Chronic, uncontrolled. Mood swings, insomnia, argumentative with [...] 05/18/2021 Assessment & Plan (01/26/2024 9:20 PM SALES REP): Chronic, uncontrolled. See HPI for details. No acute findings on exam. CMP, CBC from today unremarkable. KUB done at [facility] on 01/17/24 unremarkable. Advised miralax up [...] techniques Assessment & Plan (01/29/2019 11:57 AM SALES REP): Right ear wash today with resolution. Iron deficiency anemia due to chronic blood loss 12/16/2018 Overview (12/16/2018): Added automatically from request for surgery [id number] History of chickenpox 05/27/2018 Overview (05/27/2018): (+) [...] home. Assessment & Plan (01/26/2024 9:22 PM SALES REP): Chronic, uncontrolled. Mood swings, insomnia, argumentative with [...] 09/16/2016 Assessment & Plan (02/09/2019 12:26 PM SALES REP): Currently appears compensated and there is concern that patient may be dry secondary to her orthostasis and dizziness. A recent BNP was done and noted to be 20. She has no other signs of volume overload. We will hold her diuretics and re-evaluate on Friday. Rheumatoid arthritis of mult iple sites with negative rheumatoid factor 06/26/2013 Overview [...] M.D. Assessment & Plan (01/26/2024 9:18 PM SALES REP): Chronic, controlled on cimzia and plaquenil at [...] HYPERTENSION Assessment & Plan (01/26/2024 9:10 PM SALES REP): Chronic, at goal of <140/90. BP stable in office today on current therapy. Mood swings noted on exam. CMP from earlier today unremarkable. No rec Continue current recent cardiac testing in chart. Continue labetalol and low salt diet. Assessment & Plan (01/17/2023 3:18 PM SALES REP): BP stable in office today on current therapy. No acute findings on exam. Continue current regimen and low salt diet. Assessment & Plan (08/18/2022 3:33 PM CDT): BP stable in office today on current therapy. No acute findings on exam. Continue current regimen and low salt diet. Assessment & Plan (03/10/2019 3:44 PM SALES REP): Consulted with Dr. Martins regarding her recent [...] labetalol Assessment & Plan (02/26/2019 12:54 PM SALES REP): Her blood pressure medications were adjusted recently. Blood pressure today is acceptable, but she may have to resume lisinopril at some point in the future once she has completely recovered from her cough and her dizziness is completely gone. Assessment & Plan (02/15/2019 8:07 AM SALES REP): Will continue to hold diuretics given patient c/o dizziness. We will however, resume norvasc as BP is rising. She will follow up again in 2 weeks with blood pressure log for further evaluation. Type 2 diabetes mellitus 06/26/2013 Overview (05/17/2016): DMII WO CMP NT ST UNCNTR Assessment & Plan (03/10/2019 3:43 PM SALES REP): Pt has brought her recorded BS readings--167, [...] metformin Assessment & Plan (02/26/2019 12:55 PM SALES REP): Diabetes is pretty well controlled. She will [...] 05/07/2024 Assessment & Plan (01/17/2023 3:17 PM SALES REP): Fall 4 days ago, has standing shower with small ledge and shower chair, no body liner in bottom. Slid and landed on floor [...] 05/07/2024 Assessment & Plan (01/26/2024 9:24 PM SALES REP): Acute worse in the last 2 weeks. Seen at 2 days ago and diagnosed with shingles in L3 distribution to right anterior medial thigh.-finish valtrex as rxd. Add Tylenol PRN. Heat/ice as tolerated. Topical voltaren gel if needed. Assessment & Plan (01/17/2023 3:17 PM SALES REP): Fall 4 days ago, has standing shower with small ledge and shower chair, no body liner in bottom. Slid and landed on floor [...] 05/24/2022 Assessment & Plan (03/04/2022 2:07 PM SALES REP): Acute problem, present times about 2.5 weeks [...] pain, rule out fracture Orders for Fanny Francistian to arrange Continue pain medications as ordered [...] 05/24/2022 Assessment & Plan (03/04/2022 2:07 PM SALES REP): Acute problem, present times about 2.5 weeks [...] pain, rule out fracture Orders for Fanny Tellezsnow to arrange Continue pain medications as ordered [...] worsen. Assessment & Plan (04/20/2020 3:32 PM SALES REP): Patient presents s/p fall where she tripped [...] above. Assessment & Plan (12/21/2019 12:48 PM SALES REP): Patient is reporting feelings of being SOB [...] 01/15/2021 Assessment & Plan (12/21/2019 12:47 PM SALES REP): Patient reports low grade fevers, weakness, fatigue and shortness or breath most consistent with URI. There is concern however, for progression to pneumonia and repeat CXR and CBC will be completed. Will begin antibiotic therapy with azithromycin. Patient noted to have reported diarrhea with clarithromycin so will monitor closely. She will return in one week or sooner if needed. 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 Most likely suggestive of underlying bacterial infection. Will repeat CBC to verify improvement or change. Abdominal distension 09/08/2019 020 Lactose intolerance 08/11/2019 01/16/20 Overview (08/11/2019): Attempting milk free diet July 2019 to eliminate diarrhea Memory difficulties 08/11/2019 01/16/20 Overview (08/11/2019): Trouble finding words, further evaluation after better diabetic control Dizziness 02/09/2019 05/07/2024 Assessment & Plan (01/26/2024 9:37 PM SALES REP): Acute, intermittent in the last 2 weeks. See HPI for details. Orthostatic BP negative in office today, HR regular without murmur. Mild mood swings, no neurological deficits on exam, vitals stable. CMP, CBC from today unremarkable. UA and KUB from last week at [facility] unremarkable. Likely mutlifactorial including mood, pain, constipation, arthritis. Push fluids, see separate plans above. Assessment & Plan (02/26/2019 12:54 PM SALES REP): She was having some dizziness with orthostatic [...] 02/05/2019 Assessment & Plan (02/15/2019 8:08 AM SALES REP): It is improving and no further episodes [...] dizziness. Assessment & Plan (02/09/2019 12:29 PM SALES REP): With documented orthostasis with a BP of [...] 01/10/2020 Assessment & Plan (03/10/2019 3:36 PM SALES REP): Pt still complains of a nagging cough. She states it has never really gone away. Last chest x-ray in January was negative for infectious process, but did mention COPD, and this could be a part of that. Will continue to use her inhaler and perles PRN. Assessment & Plan (02/26/2019 12:52 PM SALES REP): Symptoms started several weeks ago or even [...] will refill that. We also recommended some fxpu-tig-amhpxun plain Mucinex. Follow-up as scheduled in May or sooner if needed. Immunocompromised 01/29/2019 09/08/2023 Overview (05/24/2022): This condition related to medicines used for her rheumatoid arthritis including Orencia and Cimzia Assessment & Plan (01/29/2019 12:31 PM SALES REP): Immunocompromised due to rheumatoid meds. Will treat with antibiotics and prednisone for presumable left lingular pneumonia with wheezing. Bilateral wheezing 01/29/2019 Assessment & Plan (02/09/2019 12:24 PM SALES REP): She has finished her course of antibiotics and steroids and her wheezing has resolved. She is still using her nebulizer prn but has decreased down to twice a day. She has repeat xray scheduled for 6 weeks post initial treatment and will await results Assessment & Plan (02/05/2019 12:21 PM SALES REP): Persistent bilateral wheezing heard on expiration in [...] request. Assessment & Plan (01/29/2019 11:47 AM SALES REP): Chest x-ray today was reviewed with Dr. [...] ventilation defect diffuse retention throughout both lungs. Bartley to represent intermediate probability for pulmonary embolism. Assessment & Plan (02/26/2019 12:55 PM SALES REP): She is tolerating Eliquis with no physical evidence of increased bruising or bleeding. Continue same. Obesity (BMI 30-39.9) 01/11/20192022 Bleeding hemorrhoids 05/06/2018 020 Assessment & Plan (02/15/2019 8:11 AM SALES REP): Pt reports blood noted on toilet paper [...] (05/01/2021): Allergies, seasonal; Comments: RITESH 08/31/2013 - Encounters Date Type Department Care Team Description 05/10/2024 Orders Only [facility] Health Information Management [address] [place] [address] Elsy Chance MD 05/10/2024 Telephone [facility] [address] [facility] [address] [place] [address] Elsy Chance MD 05/07/2024 2:00 PM CDT Office Visit [facility] [address] [facility] [address] [place] [address] Lisa Hanson, ASSORTER LAUNDRY Pneumonia due to infectious organism, unspecified laterality, unspecified part of lung (Primary Dx); Costal chondritis; Impacted cerumen of left ear 04/30/2024 1:30 PM CDT Office Visit [facility] [address] [facility] [address] [place] [address] Lisa Hanson, MIRTA Pneumonia due to infectious organism, unspecified laterality, unspecified part of lung (Primary Dx); Costal chondritis; Mood disorder; Medication monitoring encounter 04/30/2024 1:00 PM CDT Ancillary Procedure [facility] [address] [facility] [address] [place] [address] Expiratory wheezing 04/29/2024 Telephone [facility] [address] [facility] [address] [place] [address] Elsy Chance MD 04/16/2024 11:13 AM SALES REP - 04/16/2024 11:59 PM SALES REP Hospital Encounter [facility] [address] [place] [address] Elevated d-dimer; Shortness of breath Discharge Disposition: Discharge to home or self care 04/16/2024 10:44 AM SALES REP - 04/16/2024 11:59 PM SALES REP Hospital Encounter [facility] [address] [place] [address] Elevated d-dimer; Shortness of breath Discharge Disposition: Discharge to home or self care 04/16/2024 Results Follow-Up [facility] [address] [place] [address] Elsy Chance MD 04/14/2024 Telephone [facility] [address] [place] [address] Elsy Chance MD 04/13/2024 Telephone [facility] [address] [place] [address] Elsy Chance MD Critical D-Dimer 04/12/2024 Orders Only [facility] Health Information Management [address] [place] [address] Scanning, Provider 04/09/2024 Telephone [facility] [address] [facility] [address] [place] [address] Elsy Chance MD Spoke With Home Health Provider 04/07/2024 11:30 AM SALES REP Office Visit [facility] [address] [facility] [address] [place] [phone] Elsy Chance MD Hospital discharge follow-up (Primary [...] Immunization counseling; Abnormal gait 04/05/2024 Orders Only [facility] [address] [place] [address] Elsy Chance MD Type 2 diabetes mellitus with other circulatory complication, without long-term current use of insulin (HCC) (Primary Dx); Intertrigo 04/05/2024 Telephone [facility] [address] [place] [address] Elsy Chance MD Spoke With Home Health Provider 03/30/2024 Telephone [facility] [address] [place] [address] Elsy Chance MD Missed appt 03/05/2024 Orders Only [facility] [address] [place] [address] Scanning, Provider 03/02/2024 Telephone [facility] [address] [place] [address] Elsy Chance MD 02/24/2024 5:08 PM SALES REP - 03/02/2024 2:08 PM SALES REP Hospital Encounter [facility] [address] [place] [address] Carlos Manuel Herron MD Huynh, Kiet T., MD Sinha, Chandni, MD Nikolic, Jelena, MD Weakness (Primary Dx) Discharge Disposition: Discharge to SNF 02/24/2024 1:00 PM SALES REP Office Visit [facility] [address] [place] [address] Elsy Chance MD Frailty syndrome in geriatric patient (Primary Dx); Orthostatic hypotension; Multiple falls; Right hip pain; Post herpetic neuralgia; Mild vascular dementia without behavioral disturbance, psychotic disturbance, mood disturbance, or anxiety (HCC); COVID-19 in immunocompromised patient; Rheumatoid arthritis of multiple sites with negative rheumatoid factor (HCC) 02/24/2024 Telephone [facility] [address] [place] [address] Elsy Chance MD from Last 3 Months Immunizations Immunization Administration Dates Next Due Influenza, [...] (Arexvy) 06/11/2023 Tdap 02/08/2011 ZOSTER Recombinant 10/26/2018,08/26/2018 Surgical History Surgery Date Site/Laterality Comments CARPAL TUNNEL RELEASE 02/11/2000 - 02/09/2001 Carpal tunnel release HUMERUS FRACTURE SURGERY 03/28/2015 Dr. Villafuerte fracture surgery THYROIDECTOMY, PARTIAL 02/10/1966 - 03/12/1966 1967 hemithryoidectomy ORAL SURGERY 02/10/1987 - 02/10/1988 1988 oral surgery HYSTERECTOMY 02/10/1987 - 02/10/19881987 TA Hysterectomy REPAIR HERNIA VENTRAL / INCISIONAL 02/10/1987 - 02/10/19881987 incision repair SINUS SURGERY 02/11/1988 - 03/12/1988 1989 sinus surgery CHOLECYSTECTOMY 02/10/1989 - 03/12/19891989 cholecystectomy BLADDER REPAIR 02/11/1992 - 03/12/19921992 bladder-ant&post SINUS SURGERY 02/10/1993 - 03/12/1993 1994sinus surgery COLONOSCOPY 07/29/2008 Dr. Cardenas (-), sigmoid diverticulosis, hemorrhoids CERVICAL CONE BIOPSY 02/11/1964 - 02/09/1965 1965 [place] TONSILLECTOMY/ADENOIDECTOMY 02/10/1942 - 03/12/[address] [facility] 1942 CATARACT EXTRACTION 04/28/[address] Servin DILATION AND CURETTAGE OF UTERUS ANTERIOR AND POSTERIOR VAGINAL REPAIR 02/11/1992 - 02/09/1993 CARDIAC CATHETERIZATION 05/07/2018 [place] [facility] (-) normal coronary arteries UPPER GASTROINTESTINAL ENDOSCOPY COLONOSCOPY 10/19/2018 (-) Dr. Cardenas diverticulosis and hemorrhoids ESOPHAGOSCOPY / EGD 01/19/2019 (+) Dr. Cardenas moderate hiatal hernia Medical History Medical History Date Comments Anemia Anemia Hyperlipidemia Hyperlipidemia Malignant neoplasm of skin Cance r, skin Rheumatoid arthritis (HCC) 1992 Rheum atoid arthritis Type 2 diabetes mellitus (HCC) D iabetes type 2; Comments: RITESH 08/31/2013 - Hypertension Hypertension RA (rheumatoid arthritis) ([facility]) rheumatoid arthritis; Comments: RITESH 08/31/2013 - Osteoarthritis osteoarthritis; Comments: RITESH 08/31/2013 - Seasonal allergies Allergies, se asonal; Comments: RITESH 08/31/2013 - Cataract cataract surgery Humerus fracture ORIF right prox imal humeral fracture with IM jagdish.; Comments: MARIA DOLORES 02/14/2015 - GERD (gastroesophageal reflu x disease) Adenomatous colon polyp Chronic headaches Sad Low back pain 4, not currently para 3 / 1 miss Pulmonary fibrosis (HCC) Diverticulosis Chronic constipation Macular degeneration of both eyes Iron deficiency anemia due t o chronic blood loss 12/16/2018 Added automatically from re uest for surgery [id number] Compression fracture of T12 vertebra (HCC) 05/30/2020 Closed nondisplaced fracture of seventh cervical vertebra with routine healing 04/27/2020 Obesity (BMI 30-39.9) 01/11/2019 Single subsegmental pulmonar y embolism without acute cor pulmonale (HCC) 01/12/2019 V/Q scan, 01/12/19, [facility]: Sing le moderate subsegmental posterior right upper lobe perfusion defect no discrete focal ventilation defect diffuse retention throughout both lungs. Bartley to represent intermediate probability for pulmonary embolism. Fall in bathtub 01/17/2023 Right leg pain 01/17/2023 SOB (shortness of breath) 12/21/2019 1: Spirometry shows proportional decrease in FEV1 and FVC suggestive of restrictive pattern. No response to bronchodilators. Lung volumes show mild restrictive ventilatory defect. Gas exchange capacity is reduced indicating lung parenchymal/vascular abnormalities, clinical correlation is recommended. Dizziness 02/09/2019 Family History Medical History Relation Name Comments Hypertension Brother Hypertension; Lymphoma Brother Depression Father Depression; Heart disease Father Heart disease; Hypertension Father Hypertension; Prostate cancer Father Cancer -pros bowens; Stroke Father Stroke; Depression Mother Depression; Diabetes Mother Diabetes mellit us; Heart disease Mother Heart disease; Hypertension Mother Hypertension; Stroke Mother Stroke; Other Other 1 Family history of Cancer -skin; Hypertension Other 2 Family history of Hypertension; Osteoarthritis Other 3 Family histor y of Osteoarthritis; Other Other 4 Family history of arthritis - cousins/niece; Other Other 5 Family history of PROSTATE CANCER, FATHER; Rheum arthritis Other 6 Relation Name Status Comments Brother Father Mother Other 1 Other 2 Other 3 Other 4 Other 5 Other 6 Social History Tobacco Use Types Packs/Day Years Used Date Smoking Tobacco: Former Smokeless Tobacco: Never Tobacco Cessation:Counseling Given: Not Answered Alcohol Use Standard Drinks/Week Comments Not Currently 0 (1 standard drink = 0.6 oz pur e alcohol) [facility] Utilities Answer Date Recorded In the past 12 months has [employer], gas, oil, or water [employer] threatened to shut off services in your [...] often do you attend chur ch or presybeterian services? Never 02/27/2024 Do you belong to any clubs o r organizations such as catholic groups, unions, fraternal or athletic groups, or [...] any time in the past 12 m [facility], were you homeless or living in a longterm (including now)? No 02/27/2024 Personal Safety Answer [...] on file Legal Sex Female 10:51 AM SALES REP Gender Identity Not on file Sexual Orientation Not on file Occupation Industry Job Start Date Job End Date retired Not on file Not on file Not on file Obstetrics History Last Filed Vital Signs Vital Sign Reading [...] 04/30/2024 1:17 PM CDT Plan of Treatment Health Maintenance Due Date Last Done Comments Hepatitis B Screening 1953 Lipid Panel 10/23/2018 10/23/2017, 11/11, 12/06/2015, Additional history exists DTaP/Tdap/Td Vaccine (2 - Td or Tdap) 02/08/2021 02/08/2011 Covid-19 Vaccine (2023-2 5 season) 2023 06/11/2023, 10/13/2020, 04/05/2020, Additional history exists Hemoglobin A1C 03/03/2024 09/01/2023, 11/11, 05/17/2022, Additional history exists Dilated Eye Exam 06/02/2024 06/03/2023 Albumin Creatinine Ratio, Urine 09/03/2024 09/04/2023, 12/02/2022, 05/17/2022, Additional history exists Depression Screening 09/07/2024 09/08/2023, 05/24/2022, 05/24/2022, Additional history exists Well Visit 65+ 09/07/2024 09/08/2023, 05/11, 05/18/2021, Additional history exists Foot Exam 01/05/2025 01/06/2024, 07/08/2023 eGFR 02/27/2025 02/28/2024, 02/10, 02/26/2024, Additional history exists Fall Risk Assessment 03/01/2025 03/01/2024, 09/08/2023, 05/24/2022, Additional history exists Pneumococcal vaccine 65+ Completed 016, 04/11/2014, 02/09/2010, Additional history exists Zoster Vaccine Completed 10/26/2018, 08/26/2018 Influenza Vaccine Completed 09/28/2023, , 12/02/2022, Additional history exists Medical Devices Implanted Type Area World Travel Counselor Device Identifier Shelf Expiration Date Model / Serial / Lot [id number] Vertaplex Hv Autoplex Without Needle Delivery System Kit Bone - [id number] Implanted:Qty: 1 on 06/14/2020 by Crescencio Peterson MD at [facility] [employer] 07/11/2021 [id number] / / Procedures Procedure Name Priority Date/Time Associated Diagnosis Comments SCAN - LABS 05/10/2024 SCAN - RADIOLOGY/IMAGING 05/10/2024 TN REMOVAL IMPACTED CERUMEN INSTRUMENTATION UNILAT Routine 05/07/2024 [...] (Appt Today, Awaiting Results) 04/16/2024 11:27 AM SALES REP Elevated d-dimer Shortness of breath XR CHEST PA LATERAL 2 VIEWS Schedule PATTIE, Read PATTIE (Appt Today, Awaiting Results) 04/16/2024 11:19 AM SALES REP Elevated d-dimer Shortness of breath SCAN - LABS 04/12/2024 SCAN - LABS 03/05/2024 POCT GLUCOSE DEVICE Routine 03/02/2024 12:31 PM SALES REP COVID-19 CORONAVIRUS RNA Routine 03/02/2024 11:30 AM SALES REP POCT GLUCOSE DEVICE Routine 03/02/2024 9 :53 AM SALES REP POCT GLUCOSE DEVICE Routine 03/02/2024 2 :03 AM SALES REP POCT GLUCOSE DEVICE Routine 03/01/2024 7 :27 PM SALES REP POCT GLUCOSE DEVICE Routine 03/01/2024 4 :48 PM SALES REP POCT GLUCOSE DEVICE Routine 03/01/2024 11:10 AM SALES REP POCT GLUCOSE DEVICE Routine 03/01/2024 7:40 AM SALES REP POCT GLUCOSE DEVICE Routine 03/01/2024 3 :16 AM SALES REP POCT GLUCOSE DEVICE Routine 02/29/2024 7 :30 PM SALES REP POCT GLUCOSE DEVICE Routine 02/29/2024 4 :31 PM SALES REP POCT GLUCOSE DEVICE Routine 02/29/2024 11:52 AM SALES REP POCT GLUCOSE DEVICE Routine 02/29/2024 8 :55 AM SALES REP POCT GLUCOSE DEVICE Routine 02/29/2024 2 :11 AM SALES REP POCT GLUCOSE DEVICE Routine 02/28/2024 8 :36 PM SALES REP POCT GLUCOSE DEVICE Routine 02/28/2024 4 :34 PM SALES REP POCT GLUCOSE DEVICE Routine 02/28/2024 12:03 PM SALES REP POCT GLUCOSE DEVICE Routine 02/28/2024 7 :56 AM SALES REP POCT GLUCOSE DEVICE Routine 02/28/2024 1 :57 AM SALES REP EGFR Routine 02/28/2024 1:38 AM SALES REP DIFFERENTIAL AUTO Routine 02/28/2024 1:3 8 AM SALES REP PHOSPHORUS Routine 02/28/2024 1:38 AM SALES REP MAGNESIUM Routine 02/28/2024 1:38 AM SALES REP COMPREHENSIVE METABOLIC PANEL Routine 02/28/2024 1:38 AM SALES REP CBC WITH AUTO DIFFERENTIAL Routine 02/28/2024 1:38 AM SALES REP POCT GLUCOSE DEVICE Routine 02/27/2024 8 :43 PM SALES REP POCT GLUCOSE DEVICE Routine 02/27/2024 5 :00 PM SALES REP POCT GLUCOSE DEVICE Routine 02/27/2024 12:01 PM SALES REP POCT GLUCOSE DEVICE Routine 02/27/2024 7 :59 AM SALES REP EGFR Routine 02/27/2024 4:34 AM SALES REP DIFFERENTIAL AUTO Routine 02/27/2024 4:3 4 AM SALES REP PHOSPHORUS Routine 02/27/2024 4:34 AM SALES REP MAGNESIUM Routine 02/27/2024 4:34 AM SALES REP COMPREHENSIVE METABOLIC PANEL Routine 02/27/2024 4:34 AM SALES REP CBC WITH AUTO DIFFERENTIAL Routine 02/27/2024 4:34 AM SALES REP POCT GLUCOSE DEVICE Routine 02/27/2024 2 :22 AM SALES REP POCT GLUCOSE DEVICE Routine 02/26/2024 9 :05 PM SALES REP POCT GLUCOSE DEVICE Routine 02/26/2024 3 :48 PM SALES REP POCT GLUCOSE DEVICE Routine 02/26/2024 11:21 AM SALES REP POCT GLUCOSE DEVICE Routine 02/26/2024 7 :50 AM SALES REP POCT GLUCOSE DEVICE Routine 02/26/2024 2 :10 AM SALES REP EGFR Routine 02/26/2024 2:01 AM SALES REP DIFFERENTIAL AUTO Routine 02/26/2024 2:0 1 AM SALES REP PHOSPHORUS Routine 02/26/2024 2:01 AM SALES REP MAGNESIUM Routine 02/26/2024 2:01 AM SALES REP COMPREHENSIVE METABOLIC PANEL Routine 02/26/2024 2:01 AM SALES REP CBC WITH AUTO DIFFERENTIAL Routine 02/26/2024 2:01 AM SALES REP POCT GLUCOSE DEVICE Routine 02/25/2024 8 :51 PM SALES REP POCT GLUCOSE DEVICE Routine 02/25/2024 4 :27 PM SALES REP XR FOOT RIGHT 3 OR MORE VIEWS IP Routine 02/25/2024 3:54 PM SALES REP POCT GLUCOSE DEVICE Routine 02/25/2024 12:48 PM SALES REP POCT GLUCOSE DEVICE Routine 02/25/2024 8 :50 AM SALES REP EGFR Routine 02/25/2024 4:54 AM SALES REP DIFFERENTIAL AUTO Routine 02/25/2024 4:5 4 AM SALES REP MAGNESIUM Routine 02/25/2024 4:54 AM SALES REP COMPREHENSIVE METABOLIC PANEL Routine 02/25/2024 4:54 AM SALES REP CBC WITH AUTO DIFFERENTIAL Routine 02/25/2024 4:54 AM SALES REP POCT GLUCOSE DEVICE Routine 02/24/2024 11:17 PM SALES REP INFLUENZA A/B, RSV, AND COVID-19 PCR Routine 02/24/2024 9:28 PM SALES REP XR CHEST 1 VIEW ED 02/24/2024 6:[address] CERVICAL SPINE WO CONTRAST ED 02/24/2024 5:[address] HEAD WO CONTRAST ED 02/24/2024 5 :54 PM SALES REP EGFR STAT 02/24/2024 3:52 PM SALES REP DIFFERENTIAL AUTO STAT 02/24/2024 3:5 2 PM SALES REP COMPREHENSIVE METABOLIC PANEL STAT 02/24/2024 3:52 PM SALES REP CBC WITH AUTO DIFFERENTIAL STAT 02/24/2024 3:52 PM SALES REP ECG 12-LEAD STAT 02/24/2024 3:44 PM SALES REP XR HIP RIGHT W PELVIS 2 OR 3 VIEWS ED 02/24/2024 3:22 PM SALES REP HM DIABETES FOOT EXAM Routine 01/06/2024 2:56 PM SALES REP ALBUMIN CREATININE RATIO, URINE Routine 09/04/2023 11:40 [...] RADIOLOGY/IMAGING (05/10/2024) Anatomical Region Laterality Modality Other Elsy Chance MD Final Resu lt * SCAN - LABS (05/10/2024) us Provider Scanning Final Result * TN REMOVAL IMPACTED CERUMEN INSTRUMENTATION UNILAT (05/07/2024 2:00 [...] Bleeding and TM intact Hearing quality: Improved Lisa Hanson [facility] IN CLINIC/BEDSIDE ORDERABLE S Final Result * [...] Winston Madera M.D. RW: LINDA Report ID: [id number] Reading Location: [id number] Procedure Note Winston Madera MD - 04/30/2024 [...] Winston Madera M.D. RW: LINDA Report ID: [id number] Reading Location: [id number] Elsy Chance MD IMG XR PROCEDURES Final Re sult * POC Influenza A/B, COVID-19 antigen (04/30/2024 1:05 PM CDT) Influenza A Ag, POC Negative Negative [facility] FM Influenza B Ag, POC Negative Negative [facility] FM COVID-19 Ag POC Presumptive Negative Presumptive Negative, Invalid [facility] FM Nasal 04/30/2024 1:05 PM CDT Lisa Hanson ASSORTER LAUNDRY POINT OF CARE TEST ORDERABL ES Final Result [facility] [address] [place] [id number], [facility] * NM Pulmonary Ventilation and Perfusion Imaging (04/16/2024 11:27 AM SALES REP) Anatomical Region Laterality Modality Body N/A Nuclear Medicine 04/16/2024 11:3 2 AM SALES REP Narrative 04/16/2024 11:33 AM SALES REP EXAM DESCRIPTION: NM PULMONARY VENTILATION AND PERFUSION [...] Alejandro Wallace M.D. CH: AMIE Report ID: [id number] Reading Location: [id number] Procedure Note Alejandro Wallace Jr., MD - [...] Alejandro Wallace M.D. CH: AMIE Report ID: [id number] Reading Location: [id number] Elsy Chance MD [facility] PROCEDURES Final Re sult * XR Chest PA Lateral 2 Views (04/16/2024 11:19 AM SALES REP) Anatomical Region Laterality Modality Body, Chest N/A Computed Radiogr aphy 04/16/2024 11:3 3 AM SALES REP Narrative 04/16/2024 11:35 AM SALES REP EXAM DESCRIPTION: XR CHEST PA LATERAL 2 [...] Alejandro Wallace M.D. CH: AMIE Report ID: [id number] Reading Location: [id number] Procedure Note Alejandro Wallace Jr., MD - [...] Alejandro Wallace M.D. CH: AMIE Report ID: [id number] Reading Location: [place] [id number] us Elsy Chance MD IMG XR PROCEDURES Final Re sult * SCAN - LABS (04/12/2024) us Provider Scanning Edited Result - Final * SCAN - LABS (03/05/2024) us Provider Scanning Final Result * POCT glucose (03/02/2024 12:31 PM SALES REP) Pathologist [facility] Glucose, POC 135 70 - 199 mg/dL Blood 03/02/2024 12:3 1 PM SALES REP 03/02/2024 12:31 PM SALES REP us Joana Germain MD LAB POCT ORDERABLES - DEVICE F inal Result [facility] ([place]) 1 [facility] Department [place] [address] * (ABNORMAL) COVID-19 Coronavirus RNA Nasopharyngeal (03/02/2024 11:30 AM SALES REP) [facility] COVID-19 RNA Positive(A ) Negative Nasopharyngeal 03/02/2024 11 :30 AM SALES REP 03/02/2024 11:46 AM SALES REP Narrative [facility] ([place]) - 03/02/2024 12:19 PM SALES REP Is the patient experiencing any symptoms consistent with COVID (eg. Fever, cough, shortness of breath)?->No What is the reason for testing?->Screening for post-acute care placement Interpretive data: Testing performed by [facility]. This test is performed using the Thing5 Xpert Xpress CoV-2 plus assay. This is a real-time RT-PCR test intended for the qualitative detection of nucleic acid from the SARS-CoV-2. This assay has been cleared by the [place] Food and Drug administration. The performance characteristics have been verified by [facility]. Results must be considered in the clinical context, and a negative result does not rule out infection. Interpretive data last revised 2023. Interpretive data: Testing performed by [facility]. This test is performed using the Thing5 Xpert Xpress CoV-2 plus assay. This is a real-time RT-PCR test intended for the qualitative detection of nucleic acid from the SARS-CoV-2. This assay has been cleared by the [place] Food and Drug administration. The performance characteristics have been verified by [facility]. Results must be considered in the clinical context, and a negative result does not rule out infection. Interpretive data last revised 2023. Joana Germain MD LAB MICROBIOLOGY - GENERAL ORD ERABLES Final Result Performing Organization Address City/State/[place] Co de Phone Number [facility] ([place]) 1 [facility] Department [place] [address] * POCT glucose (03/02/2024 9:53 AM SALES REP) Glucose, POC 132 70 - 199 mg/dL Blood 03/02/2024 9:53 AM SALES REP 03/02/2024 9:53 AM SALES REP Joana Gemrain MD LAB POCT ORDERABLES - DEVICE F inal Result Performing Organization Address City/[facility]/ZIP Co de Phone Number [facility] ([place]) 1 [facility] [address] [place] [address] * POCT glucose (03/02/2024 2:03 AM SALES REP) Glucose, POC 118 70 - 199 mg/dL Blood 03/02/2024 2:03 AM SALES REP 03/02/2024 2:03 AM SALES REP Mary Kay Vinson MD LAB POCT ORDERABLES - DEVICE Fi nal Result Performing Organization Address City/[facility]/[place] Co de Phone Number [facility] ([place]) 1 [facility] [address] [place] [address] * POCT glucose (03/01/2024 7:27 PM SALES REP) Glucose, POC 183 70 - 199 mg/dL Blood 03/01/2024 7:27 PM SALES REP 03/01/2024 7:27 PM SALES REP us Mary Kay Vinson MD LAB POCT ORDERABLES - DEVICE Fi nal Result Performing Organization Address [facility]/[place] Co de Phone Number [facility] ([place]) 1 [facility] [address] [place] [address] * POCT glucose (03/01/2024 4:48 PM SALES REP) Glucose, POC 131 70 - 199 mg/dL Blood 03/01/2024 4:48 PM SALES REP 03/01/2024 4:48 PM SALES REP Mary Kay Vinson MD LAB POCT ORDERABLES - DEVICE Fi nal Result Performing Organization Address City/[facility]/ZIP Co de Phone Number [facility] ([place]) 1 [facility] [address] [place] [address] * (ABNORMAL) POCT glucose (03/01/2024 11:10 AM SALES REP) Glucose, POC 217(H) 70 - 199 mg/dL Blood 03/01/2024 11:1 0 AM SALES REP 03/01/2024 11:10 AM SALES REP Mary Kay Vinson MD LAB POCT ORDERABLES - DEVICE Fi nal Result Performing Organization Address [facility]/ZIP Co de Phone Number [facility] ([place]) 1 [facility] [address] [place] [address] * POCT glucose (03/01/2024 7:40 AM SALES REP) Glucose, POC 110 70 - 199 mg/dL Blood 03/01/2024 7:40 AM SALES REP 03/01/2024 7:40 AM SALES REP Mary Kay Vinson MD LAB POCT ORDERABLES - DEVICE Fi nal Result Performing Organization Address [facility] de Phone Number [facility] ([place]) 1 [facility] [address] [place] [address] * POCT glucose (03/01/2024 3:16 AM SALES REP) Glucose, POC 108 70 - 199 mg/dL Blood 03/01/2024 3:16 AM SALES REP 03/01/2024 3:16 AM SALES REP Mary Kay Vinson MD LAB POCT ORDERABLES - DEVICE Fi nal Result Performing Organization Address [facility]/[place] Co de Phone Number [facility] ([place]) 1 [facility] [address] [place] [address] * POCT glucose (02/29/2024 7:30 PM SALES REP) Glucose, POC 196 70 - 199 mg/dL Blood 02/29/2024 7:30 PM SALES REP 02/29/2024 7:30 PM SALES REP Mary Kay Vinson MD LAB POCT ORDERABLES - DEVICE Fi nal Result Performing Organization Address City/[facility]/[place] Co de Phone Number [facility] ([place]) [address] [place] [address] * POCT glucose (02/29/2024 4:31 PM SALES REP) Glucose, POC 141 70 - 199 mg/dL Blood 02/29/2024 4:31 PM SALES REP 02/29/2024 4:31 PM SALES REP Mary Kay Vinson MD LAB POCT ORDERABLES - DEVICE Fi nal Result Performing Organization Address City/[facility]/ZIP Co de Phone Number [facility] ([place]) [address] [place] [address] * POCT glucose (02/29/2024 11:52 AM SALES REP) Glucose, POC 114 70 - 199 mg/dL Blood 02/29/2024 11:5 2 AM SALES REP 02/29/2024 11:52 AM SALES REP Mary Kay Vinson MD LAB POCT ORDERABLES - DEVICE Fi nal Result Performing Organization Address City/[facility]/ZIP Co de Phone Number [facility] ([place]) 1 [facility] [address] [place] [address] * POCT glucose (02/29/2024 8:55 AM SALES REP) Glucose, POC 174 70 - 199 mg/dL Blood 02/29/2024 8:55 AM SALES REP 02/29/2024 8:55 AM SALES REP Mary Kay Vinson MD LAB POCT ORDERABLES - DEVICE Fi nal Result [facility] ([place]) 1 [facility] [address] [place] [address] * POCT glucose (02/29/2024 2:11 AM SALES REP) Glucose, POC 118 70 - 199 mg/dL Blood 02/29/2024 2:11 AM SALES REP 02/29/2024 2:11 AM SALES REP Mary Kay Vinson MD LAB POCT ORDERABLES - DEVICE Fi nal Result [facility] ([place]) 1 [facility] [address] [place] [address] * POCT glucose (02/28/2024 8:36 PM SALES REP) Glucose, POC 108 70 - 199 mg/dL Blood 02/28/2024 8:36 PM SALES REP 02/28/2024 8:36 PM SALES REP Mary Kay Vinson MD LAB POCT ORDERABLES - DEVICE Fi nal Result Performing Organization Address [facility]/ZIP Co de Phone Number [facility] ([place]) 1 [facility] [place] [address] * POCT glucose (02/28/2024 4:34 PM SALES REP) Glucose, POC 144 70 - 199 mg/dL Blood 02/28/2024 4:34 PM SALES REP 02/28/2024 4:34 PM SALES REP Mary Kay Vinson MD LAB POCT ORDERABLES - DEVICE Fi nal Result Performing Organization Address City/[facility]/ZIP Co de Phone Number [facility] ([place]) 1 [facility] [employer] [address] * POCT glucose (02/28/2024 12:03 PM SALES REP) Glucose, POC 150 70 - 199 mg/dL Blood 02/28/2024 12:0 3 PM SALES REP 02/28/2024 12:03 PM SALES REP Mary Kay Vinson MD LAB POCT ORDERABLES - DEVICE Fi nal Result [facility] 1 [facility] [address] [place] [address] * POCT glucose (02/28/2024 7:56 AM SALES REP) Glucose, POC 139 70 - 199 mg/dL Blood 02/28/2024 7:56 AM SALES REP 02/28/2024 7:56 AM SALES REP Mary Kay Vinson MD LAB POCT ORDERABLES - DEVICE Fi nal Result [facility] ([place]) 1 [facility] [address] [place] [address] * POCT glucose (02/28/2024 1:57 AM SALES REP) Glucose, POC 120 70 - 199 mg/dL Blood 02/28/2024 1:57 AM SALES REP 02/28/2024 1:57 AM SALES REP Mary Kay Vinson MD LAB POCT ORDERABLES - DEVICE Fi nal Result [facility] ([place]) 1 [facility] [address] [place] [address] * eGFR (02/28/2024 1:38 AM SALES REP) eGFR >90 >=60 mL/min/1. 73 m2 Comment: [...] last reviewed 2020. Blood 02/28/2024 1:38 AM SALES REP 02/28/2024 2:20 AM SALES REP us Mary Kay Vinson MD LAB BLOOD ORDERABLES Final Resu lt [facility] ([place]) 1 [facility] Department [place] [address] * (ABNORMAL) Differential, auto (02/28/2024 1:38 AM SALES REP) Neutrophil abs 4.6 1.5 - 6.5 K/cumm [...] revised on 2017. Monocyte pct 10.6 % [facility] ([place]) Comment: Interpretive Data [...] revised on 2017. Basophil pct 0.2 % [facility] ([place]) Comment: Interpretive Data Percent cell count reference ranges are not reported, since discordance with absolute values may lead to misinterpretation of CBC data. Current Interpretive Data was last revised on 2017. Blood 02/28/2024 1:38 AM SALES REP 02/28/2024 2:20 AM SALES REP us Mary Kay Vinson MD LAB BLOOD ORDERABLES Final Resu lt [facility] ([place]) 1 [facility] Department [place] [address] * (ABNORMAL) CBC with auto differential (02/28/2024 1:38 AM SALES REP) WBC 8.0 3.8 - 9.9 K/cumm Hgb 12.0 11.9 - 15.5 g/dL [facility] ([place]) Hct 38.1 35.6 - 45.5 % [...] NRBC abs 0.00 0.00 - 0.01 K/cumm [facility] ([place]) Blood 02/28/2024 1:38 AM SALES REP 02/28/2024 2:20 AM SALES REP Mary Kay Vinson MD LAB BLOOD ORDERABLES Final Resu lt Performing Organization Address City/[facility]/ZIP Co de Phone Number [facility] ([place]) 1 [facility] [address] [place] [address] * Phosphorus (02/28/2024 1:38 AM SALES REP) Phosphorus, pl 2.8 2.3 - 4.5 mg/dL Blood 02/28/2024 1:38 AM SALES REP 02/28/2024 2:20 AM SALES REP Mary Kay Vinson MD LAB BLOOD ORDERABLES Final Resu lt Performing Organization Address [facility]/[place] Co de Phone Number [facility] ([place]) 1 [facility] [address] [place] [address] * Magnesium (02/28/2024 1:38 AM SALES REP) Magnesium 2.0 1.4 - 2.5 mg/dL Blood 02/28/2024 1:38 AM SALES REP 02/28/2024 2:20 AM SALES REP Mary Kay Vinson MD LAB BLOOD ORDERABLES Final Resu lt Performing Organization Address [facility]/[place] Co de Phone Number [facility] ([place]) 1 [facility] [address] [place] [address] * (ABNORMAL) Comprehensive metabolic panel (02/28/2024 1:38 AM SALES REP) Sodium 138 135 - 145 mmol/L Potassium, pl 3.8 3.3 - 4.9 mmol/L [facility] ([place]) Chloride 103 97 - 110 mmol/L [facility] ([place]) CO2 23 22 - 32 [...] classification and Diagnosis of Diabetes Diabetes Care 202; 46: S19-S40. Current interpretive data was last [...] [facility] ([place]) Blood 02/28/2024 1:38 AM SALES REP 02/28/2024 2:20 AM SALES REP us Mary Kay Vinson MD LAB BLOOD ORDERABLES Final Resu lt [facility] ([place]) 1 [facility] Department [place] [address] * POCT glucose (02/27/2024 8:43 PM SALES REP) Glucose, POC 131 70 - 199 mg/dL Blood 02/27/2024 8:43 PM SALES REP 02/27/2024 8:43 PM SALES REP Mary Kay Vinson MD LAB POCT ORDERABLES - DEVICE Fi nal Result [facility] ([place]) 1 [facility] [address] [place] [address] * POCT glucose (02/27/2024 5:00 PM SALES REP) Glucose, POC 112 70 - 199 mg/dL Blood 02/27/2024 5:00 PM SALES REP 02/27/2024 5:00 PM SALES REP us Mary Kay Vinson MD LAB POCT ORDERABLES - DEVICE Fi nal Result Performing Organization Address City/[facility]/ZIP Co de Phone Number [facility] ([place]) 1 [facility] [address] [place] [address] * POCT glucose (02/27/2024 12:01 PM SALES REP) Glucose, POC 111 70 - 199 mg/dL Blood 02/27/2024 12:0 1 PM SALES REP 02/27/2024 12:01 PM SALES REP us Mary Kay Vinson MD LAB POCT ORDERABLES - DEVICE Fi nal Result [facility] ([place]) 1 [facility] [address] [place] [address] * POCT glucose (02/27/2024 7:59 AM SALES REP) Glucose, POC 122 70 - 199 mg/dL Blood 02/27/2024 7:59 AM SALES REP 02/27/2024 7:59 AM SALES REP Mary Kay Vinson MD LAB POCT ORDERABLES - DEVICE Fi nal Result [facility] ([place]) 1 [facility] [place] [address] * eGFR (02/27/2024 4:34 AM SALES REP) eGFR 90 >=60 mL/min/1. 73 m2 Comment: [...] last reviewed 2020. Blood 02/27/2024 4:34 AM SALES REP 02/27/2024 5:43 AM SALES REP us Mary Kay Vinson MD LAB BLOOD ORDERABLES Final Resu lt [facility] ([place]) 1 [facility] Department [place] [address] * Differential, auto (02/27/2024 4:34 AM SALES REP) Neutrophil abs 4.2 1.5 - 6.5 K/cumm [...] revised on 2017. Blood 02/27/2024 4:34 AM SALES REP 02/27/2024 5:45 AM SALES REP us Mary Kay Vinson MD LAB BLOOD ORDERABLES Final Resu lt [facility] ([place]) 1 [facility] Department [place] [address] * (ABNORMAL) CBC with auto differential (02/27/2024 4:34 AM SALES REP) WBC 7.2 3.8 - 9.9 K/cumm Hgb [...] [facility] ([place]) Blood 02/27/2024 4:34 AM SALES REP 02/27/2024 5:45 AM SALES REP us Mary Kay Vinson MD LAB BLOOD ORDERABLES Final Resu lt [facility] ([place]) 1 [facility] [employer] [address] [place] [address] * Phosphorus (02/27/2024 4:34 AM SALES REP) Phosphorus, pl 3.1 2.3 - 4.5 mg/dL Blood 02/27/2024 4:34 AM SALES REP 02/27/2024 5:43 AM SALES REP Mary Kay Vinson MD LAB BLOOD ORDERABLES Final Resu lt [facility] ([place]) 1 [facility] [employer] [address] [place] [address] * Magnesium (02/27/2024 4:34 AM SALES REP) Magnesium 1.8 1.4 - 2.5 mg/dL Blood 02/27/2024 4:34 AM SALES REP 02/27/2024 5:43 AM SALES REP us Mary Kay Vinson MD LAB BLOOD ORDERABLES Final Resu lt [facility] ([place]) 1 [facility] Department [place] [address] * (ABNORMAL) Comprehensive metabolic panel (02/27/2024 4:34 AM SALES REP) Sodium 137 135 - 145 mmol/L Potassium, pl 3.8 3.3 - 4.9 mmol/L [facility] ([place]) Chloride 105 97 - 110 mmol/L [facility] ([place]) CO2 25 22 - 32 mmol/L [facility] ([place]) Anion gap 7 2 - 15 mmol/L [facility] ([place]) BUN 10 6 - 25 mg/dL [facility] ([place]) Creatinine 0.52(L) 0.60 - 1.10 mg/dL [facility] ([place]) Glucose 113 70 - 199 mg/dL [facility] ([place]) [...] classification and Diagnosis of Diabetes Diabetes Care 202; 46: S19-S40. Current interpretive data was last [...] [facility] ([place]) Blood 02/27/2024 4:34 AM SALES REP 02/27/2024 5:43 AM SALES REP Mary Kay Vinson MD LAB BLOOD ORDERABLES Final Resu lt [facility] ([place]) 1 [facility] [address] [place] [address] * POCT glucose (02/27/2024 2:22 AM SALES REP) Glucose, POC 106 70 - 199 mg/dL Blood 02/27/2024 2:22 AM SALES REP 02/27/2024 2:22 AM SALES REP Mary Kay Vinson MD LAB POCT ORDERABLES - DEVICE Fi nal Result Performing Organization Address [facility]/ZIP Co de Phone Number [facility] ([place]) 1 [facility] [address] [place] [address] * POCT glucose (02/26/2024 9:05 PM SALES REP) Glucose, POC 153 70 - 199 mg/dL Blood 02/26/2024 9:05 PM SALES REP 02/26/2024 9:05 PM SALES REP Mary Kay Vinson MD LAB POCT ORDERABLES - DEVICE Fi nal Result Performing Organization Address City/[facility]/ZIP Co de Phone Number [facility] ([place]) 1 [facility] [address] [place] [address] * POCT glucose (02/26/2024 3:48 PM SALES REP) Glucose, POC 142 70 - 199 mg/dL Blood 02/26/2024 3:48 PM SALES REP 02/26/2024 3:48 PM SALES REP Mary Kay Vinson MD LAB POCT ORDERABLES - DEVICE Fi nal Result [facility] ([place]) 1 [facility] [address] [place] [address] * POCT glucose (02/26/2024 11:21 AM SALES REP) Glucose, POC 172 70 - 199 mg/dL Blood 02/26/2024 11:2 1 AM SALES REP 02/26/2024 11:21 AM SALES REP Mary Kay Vinson MD LAB POCT ORDERABLES - DEVICE Fi nal Result Performing Organization Address [facility]/[place] Co de Phone Number [facility] ([place]) 1 [facility] [address] [place] [address] * POCT glucose (02/26/2024 7:50 AM SALES REP) Glucose, POC 136 70 - 199 mg/dL Blood 02/26/2024 7:50 AM SALES REP 02/26/2024 7:50 AM SALES REP Mary Kay Vinson MD LAB POCT ORDERABLES - DEVICE Fi nal Result Performing Organization Address City/[facility]/ZIP Co de Phone Number [facility] ([place]) 1 [facility] [address] [place] [address] * POCT glucose (02/26/2024 2:10 AM SALES REP) Glucose, POC 97 70 - 199 mg/dL Blood 02/26/2024 2:10 AM SALES REP 02/26/2024 2:10 AM SALES REP Mary Kay Vinson MD LAB POCT ORDERABLES - DEVICE Fi nal Result [facility] ([place]) 1 [facility] Social [address] [place] [address] * eGFR (02/26/2024 2:01 AM SALES REP) eGFR 90 >=60 mL/min/1. 73 m2 Comment: [...] last reviewed 2020. Blood 02/26/2024 2:01 AM SALES REP 02/26/2024 2:02 AM SALES REP us Mary Kay Vinson MD LAB BLOOD ORDERABLES Final Resu lt [facility] ([place]) 1 [facility] Department [place] [address] * (ABNORMAL) Differential, auto (02/26/2024 2:01 AM SALES REP) Neutrophil abs 4.5 1.5 - 6.5 K/cumm Imm gran abs 0.0 0.0 - 0.1 K/cumm [facility] ([place]) Lymphocyte abs 2.8 0.8 - 3.3 K/cumm [facility] ([place]) Monocyte abs 0.9(H) 0.2 - 0.8 K/cumm [facility] ([place]) Eosinophil abs 0.3 0.0 - 0.5 K/cumm [facility] ([place]) Basophil abs 0.0 0.0 - 0.1 K/cumm [facility] ([place]) Neutrophil pct 52.3 % [facility] ([place]) Comment: Interpretive [...] Lymphocyte pct 32.6 % [facility] ([place]) Comment: Interpretive Data Percent cell count reference ranges are not reported, since discordance with absolute values may lead to misinterpretation of CBC data. Current Interpretive Data was last revised on 2017. Monocyte pct 11.0 % [facility] ([place]) Comment: Interpretive Data Percent cell count reference ranges are not reported, since discordance with absolute values may lead to misinterpretation of CBC data. Current Interpretive Data was last revised on 2017. Eosinophil pct 3.2 % [facility] ([place]) Comment: Interpretive Data Percent cell count reference ranges are not reported, since discordance with absolute values may lead to misinterpretation of CBC data. Current Interpretive Data was last revised on 2017. Basophil pct 0.5 % [facility] ([place]) Comment: Interpretive Data Percent cell count reference ranges are not reported, since discordance with absolute values may lead to misinterpretation of CBC data. Current Interpretive Data was last revised on 2017. Blood 02/26/2024 2:01 AM SALES REP 02/26/2024 2:01 AM SALES REP us Mary Kay Vinson MD LAB BLOOD ORDERABLES Final Resu lt [facility] ([place]) 1 [facility] Department of Laboratories [place], [place] [id number] * (ABNORMAL) CBC with auto differential (02/26/2024 2:01 AM SALES REP) WBC 8.5 3.8 - 9.9 K/cumm Hgb [...] [facility] ([place]) Blood 02/26/2024 2:01 AM SALES REP 02/26/2024 2:01 AM SALES REP us Mary Kay Vinson MD LAB BLOOD ORDERABLES Final Resu lt [facility] ([place]) 1 [facility] [employer] [facility] [address] [place] [address] * Phosphorus (02/26/2024 2:01 AM SALES REP) Phosphorus, pl 3.5 2.3 - 4.5 mg/dL Blood 02/26/2024 2:01 AM SALES REP 02/26/2024 2:02 AM SALES REP Mary Kay Vinson MD LAB BLOOD ORDERABLES Final Resu lt [facility] ([place]) 1 [facility] of Social [address] [place] [address] * Magnesium (02/26/2024 2:01 AM SALES REP) Magnesium 1.8 1.4 - 2.5 mg/dL Blood 02/26/2024 2:01 AM SALES REP 02/26/2024 2:02 AM SALES REP us Mary Kay Vinson MD LAB BLOOD ORDERABLES Final Resu lt [facility] ([place]) 1 [facility] Department [place] [address] * (ABNORMAL) Comprehensive metabolic panel (02/26/2024 2:01 AM SALES REP) Sodium 139 135 - 145 mmol/L Potassium, pl 4.0 3.3 - 4.9 mmol/L [facility] ([place]) Chloride 105 97 - 110 mmol/L [facility] ([place]) CO2 23 22 - 32 mmol/L [facility] ([place]) Anion gap 11 2 - 15 mmol/L [facility] ([place]) BUN 10 6 - 25 mg/dL [facility] ([place]) Creatinine 0.52(L) 0.60 - 1.10 mg/dL [facility] ([place]) Glucose 109 70 - 199 mg/dL [facility] ([place]) Comment: Interpretive Data Fasting glucose [...] [facility] ([place]) Blood 02/26/2024 2:01 AM SALES REP 02/26/2024 2:02 AM SALES REP Mary Kay Vinson MD LAB BLOOD ORDERABLES Final Resu lt [facility] ([place]) 1 [facility] [address] [place] [address] * POCT glucose (02/25/2024 8:51 PM SALES REP) Glucose, POC 143 70 - 199 mg/dL Blood 02/25/2024 8:51 PM SALES REP 02/25/2024 8:51 PM SALES REP Mary Kay Vnison MD LAB POCT ORDERABLES - DEVICE Fi nal Result Performing Organization Address [facility] de Phone Number [facility] ([place]) 1 [facility] [address] [place] [address] * POCT glucose (02/25/2024 4:27 PM SALES REP) Glucose, POC 122 70 - 199 mg/dL Blood 02/25/2024 4:27 PM SALES REP 02/25/2024 4:27 PM SALES REP Mary Kay Vinson MD LAB POCT ORDERABLES - DEVICE Fi nal Result Performing Organization Address [facility]/[place] Co de Phone Number [facility] ([place]) 1 [facility] [address] [place] [address] * XR Foot Right 3 or More Views (02/25/2024 3:54 PM SALES REP) Anatomical Region Laterality Modality Lower Extremities, Foot Right Computed Radiography 02/25/2024 6:27 PM SALES REP Narrative 02/25/2024 6:29 PM SALES REP EXAM DESCRIPTION: XR FOOT RIGHT 3 OR MORE VIEWS REASON FOR STUDY: Fall. Foot pain. TECHNIQUE: 3 radiographic view(s) of the right foot . COMPARISON: None FINDINGS: Bones are demineralized, limiting evaluation for subtle fracture. There is a suspected minimally displaced fracture of the proximal phalanx of the 5th toe. No other fractures identified. No joint space widening. There are iehnvhrz-ax-olngre degenerative changes in the midfoot. Small calcaneal spur is present. There are atherosclerotic vascular calcifications. IMPRESSION: Suspected minimally displaced fracture of the proximal phalanx of the 5th toe. Recommend correlation with point tenderness. THIS IS AN ELECTRONICALLY VERIFIED FINAL REPORT 02/25/2024 6:29 PM - Electronically signed by Ignacio Nieves M.D. AM: AM Report ID: [id number] Reading Location: [id number] Procedure Note Ignacio Nieves MD - 02/25/2024 [...] identified. No joint space widening. There are fqvpnxmc-gf-jobnii degenerative changes in the midfoot. Small calcanealspur is present. There are atherosclerotic vascular calcifications. IMPRESSION: Suspected minimally displaced fracture of the proximal phalanx of the 5thtoe. Recommend correlation with point tenderness. THIS IS AN ELECTRONICALLY VERIFIED FINAL REPORT 02/25/2024 6:29 PM - Electronically signed by Ignacio Nieves M.D. AM: AM Report ID: [id number] Reading Location: [id number] Mary Kay Vinson MD IMG XR PROCEDURES Final Result * POCT glucose (02/25/2024 12:48 PM SALES REP) Glucose, POC 156 70 - 199 mg/dL Blood 02/25/2024 12:4 8 PM SALES REP 02/25/2024 12:48 PM SALES REP Mary Kay Vinson MD LAB POCT ORDERABLES - DEVICE Fi nal Result [facility] ([place]) 1 [facility] [address] [place] [address] * POCT glucose (02/25/2024 8:50 AM SALES REP) Glucose, POC 105 70 - 199 mg/dL Blood 02/25/2024 8:50 AM SALES REP 02/25/2024 8:50 AM SALES REP Mary Kay Vinson MD LAB POCT ORDERABLES - DEVICE Fi nal Result Performing Organization Address City/[facility]/[place] Co de Phone Number [facility] ([place]) [address] [place] [address] [place] [place] [address] * eGFR (02/25/2024 4:54 AM SALES REP) eGFR 87 >=60 mL/min/1. 73 m2 Comment: [...] last reviewed 2020. Blood 02/25/2024 4:54 AM SALES REP 02/25/2024 5:00 AM SALES REP us Mason Ward MD LAB BLOOD ORDERABLES Final Resu lt [facility] ([place]) 1 [facility] Department [place] [address] * (ABNORMAL) Differential, auto (02/25/2024 4:54 AM SALES REP) Neutrophil abs 5.1 1.5 - 6.5 K/cumm [...] revised on 2017. Blood 02/25/2024 4:54 AM SALES REP 02/25/2024 5:00 AM SALES REP us Mason Ward MD LAB BLOOD ORDERABLES Final Resu lt [facility] ([place]) 1 [facility] Department [place] [address] * (ABNORMAL) CBC with auto differential (02/25/2024 4:54 AM SALES REP) WBC 8.4 3.8 - 9.9 K/cumm Hgb 12.0 11.9 - 15.5 g/dL [facility] ([place]) Hct 37.5 35.6 - 45.5 % [facility] ([place]) Plt 219 150 - 400 K/cumm [facility] ([place]) [...] - 0.01 K/cumm [facility] ([place]) Blood 02/25/2024 4:54 AM SALES REP 02/25/2024 5:00 AM SALES REP Mary Kay Vinson MD LAB BLOOD ORDERABLES Final Resu lt [facility] ([place]) 1 [facility] [address] [place] [address] * Magnesium (02/25/2024 4:54 AM SALES REP) Magnesium 1.9 1.4 - 2.5 mg/dL Blood 02/25/2024 4:54 AM SALES REP 02/25/2024 5:00 AM SALES REP Mary Kay Vinson MD LAB BLOOD ORDERABLES Final Resu lt Performing Organization Address City/[facility]/[place] Co de Phone Number [facility] ([place]) 1 [place] [address] * (ABNORMAL) Comprehensive metabolic panel (02/25/2024 4:54 AM SALES REP) Sodium 143 135 - 145 mmol/L Potassium, pl 4.2 3.3 - 4.9 mmol/L [facility] ([place]) Chloride 105 97 - 110 mmol/L [facility] ([place]) CO2 27 22 - 32 mmol/L [facility] ([place]) Anion gap 11 2 - 15 mmol/L [facility] ([place]) BUN 12 6 - 25 mg/dL [facility] ([place]) Creatinine 0.60 0.60 - 1.10 mg/dL [facility] ([place]) Glucose 98 70 - 199 mg/dL [facility] ([place]) Comment: Interpretive Data [...] [facility] ([place]) Blood 02/25/2024 4:54 AM SALES REP 02/25/2024 5:00 AM SALES REP us Mary Kay Vinson MD LAB BLOOD ORDERABLES Final Resu lt Performing Organization Address City/[facility]/ZIP Co de Phone Number [facility] ([place]) 1 [facility] [employer] [facility] [address] [place] [address] * POCT glucose (02/24/2024 11:17 PM SALES REP) [facility] Glucose, POC 152 70 - 199 mg/dL Comment:Glu2: RN/ Notified Blood 02/24/2024 11:1 7 PM SALES REP 02/24/2024 11:17 PM SALES REP us Mason Ward MD LAB POCT ORDERABLES - DEVICE Fi nal Result [facility] ([place]) 1 [facility] of Social [address] [place] [address] * (ABNORMAL) Influenza A/B, RSV, and COVID-19 PCR Nasopharyngeal (02/24/2024 9:28 PM SALES REP) [facility] COVID-19 RNA Positive(A) Negative Influenza A RNA Negative Negative [facility] ([place]) Influenza B RNA Negative Negative [facility] ([place]) RSV RNA Negative Negative [facility] ([place]) Comment: Interpretive data: Testing performed by [facility]. This test is performed using the Thing5 Xpert Xpress CoV-2/Flu/RSV plus assay. This is a multiplex, real- time reverse transcriptase PCR assay intended for the qualitative detection of nucleic acid from SARS-CoV-2, influenza A, influenza B, and respiratory syncytial virus. This assay has been cleared by the [place] Food and Drug administration. The performance characteristics have been verified by the [facility]. Results must be considered in the clinical context, and a negative result does not rule out infection. Interpretive Data last revised 2023 Nasopharyngeal 02/24/2024 9: 28 PM SALES REP 02/24/2024 9:34 PM SALES REP Narrative [facility] ([place]) - 02/24/2024 10:12 PM SALES REP Is the Patient experiencing symptoms consistent with COVID?->No Mason Ward MD LAB MICROBIOLOGY - GENERAL ANABEL PRIETO Final Result [facility] ([place]) 1 [facility] Department [place] [address] * XR Chest 1 View (02/24/2024 6:06 PM SALES REP) Anatomical Region Laterality Modality Body, Chest N/A Computed Radiogr aphy 02/24/2024 7:24 PM SALES REP Narrative 02/24/2024 7:27 PM SALES REP EXAM DESCRIPTION: XR CHEST 1 VIEW REASON [...] Electronically signed by Shukri Celestin M.D. MZ: YARA Report ID: [id number] Reading Location: [place] [address] Procedure Note Shukri Celestin MD - 02/24/2024 [...] Electronically signed by Shukri Celestin M.D. MZ: YARA Report ID: [id number] Reading Location: [id number] us Carlos Manuel Herron MD IMG XR PROCEDURES Final Resu lt * CT Cervical Spine WO Contrast (02/24/2024 5:54 PM SALES REP) Anatomical Region Laterality Modality Spine N/A Computed Tomogra phy 02/24/2024 7:21 PM SALES REP Narrative 02/24/2024 7:26 PM SALES REP EXAM DESCRIPTION: CT CERVICAL SPINE WO CONTRAST [...] Man M.D. LL: LA NENA Report ID: [id number] Reading Location: [id number] Procedure Note Stefania Man MD - 02/24/2024 [...] are opportunity Lucy there is osteophyte formation atmultiple levels. There [...] Man M.D. LL: LA NENA Report ID: [id number] Reading Location: [id number] us Carlos Manuel Herron MD IMG CT PROCEDURES Final Resu lt * CT Head WO Contrast (02/24/2024 5:54 PM SALES REP) Anatomical Region Laterality Modality Head and Neck N/A Computed Tomogra phy 02/24/2024 7:17 PM SALES REP Narrative 02/24/2024 7:20 PM SALES REP EXAM DESCRIPTION: CT HEAD WO CONTRAST REASON [...] Man M.D. LL: LA NENA Report ID: [id number] Reading Location: [place] [address] Procedure Note Stefania Man MD - 02/24/2024 [...] Stefania Man M.D. LL: LL Report ID: [id number] Reading Location: [id number] us Carlos Manuel Herron MD IMG CT PROCEDURES Final Resu lt * eGFR (02/24/2024 3:52 PM SALES REP) eGFR 86 >=60 mL/min/1. 73 m2 Comment: [...] last reviewed 2020. Blood 02/24/2024 3:52 PM SALES REP 02/24/2024 3:59 PM SALES REP Esteban Ruth MD LAB BLOOD ORDERABLES Final Res ult [facility] ([place]) 1 [facility] Department [place] [address] * Differential, auto (02/24/2024 3:52 PM SALES REP) Neutrophil abs 4.4 1.5 - 6.5 K/cumm [...] 2017. Monocyte pct 9.6 % [facility] ([place]) Comment: Interpretive Data Percent cell count reference [...] revised on 2017. Blood 02/24/2024 3:52 PM SALES REP 02/24/2024 3:59 PM SALES REP Esteban Ruth MD LAB BLOOD ORDERABLES Final Res ult Performing Organization Address City/[facility]/ZIP Co de Phone Number [facility] ([place]) 1 [facility] Department [place] [address] * (ABNORMAL) CBC with auto differential (02/24/2024 3:52 PM SALES REP) WBC 7.5 3.8 - 9.9 K/cumm Hgb [...] [facility] ([place]) Blood 02/24/2024 3:52 PM SALES REP 02/24/2024 3:59 PM SALES REP Esteban Ruth MD LAB BLOOD ORDERABLES Final Res ult [facility] ([place]) 1 [facility] Department [place] [address] * (ABNORMAL) Comprehensive metabolic panel (02/24/2024 3:52 PM SALES REP) Sodium 138 135 - 145 mmol/L Potassium, pl 4.6 3.3 - 4.9 mmol/L [facility] ([place]) Chloride 100 97 - 110 mmol/L [facility] ([place]) CO2 28 22 - 32 mmol/L [facility] ([place]) Anion gap 10 2 - 15 mmol/L [facility] ([place]) BUN 12 6 - 25 mg/dL [facility] ([place]) Creatinine 0.61 0.60 - 1.10 [...] [facility] ([place]) Blood 02/24/2024 3:52 PM SALES REP 02/24/2024 3:59 PM SALES REP us Esteban Ruth MD LAB BLOOD ORDERABLES Final Res ult [facility] ([place]) 1 [facility] Department [place] [address] * ECG 12 lead (02/24/2024 3:44 PM SALES REP) 02/24/2024 3:44 PM SALES REP Narrative [facility] 02/24/2024 6:06 PM SALES REP Vent Rate: 76 bpm RR Interval: 783 msec TN Interval: 182 msec QRS Duration: 102 msec QT Interval: 405 msec QTC Interval: 436 msec P-R-T [place]: 62 - 15 - 32 degrees IMPRESSION: SINUS RHYTHM WITH OCCASIONAL SUPRAVENTRICULAR PREMATURE COMPLEXES POSSIBLE ANTERIOR MYOCARDIAL INFARCTION , PROBABLY OLD [30 ms Q WAVE IN V3/V4, OR R < 0.2 mV IN V4] BORDERLINE ECG NO CHANGE FROM PREVIOUS TRACING NOTED Electronically Signed By: Michael Hinojosa MD Esteban Ruth MD ECG ORDERABLES Final Result Performing Organization Address [facility]/[place] Co de Phone Number [employer] [place] [employer] [facility] * XR Hip Right 2 or 3 Views W Pelvis (02/24/2024 3:22 PM SALES REP) Anatomical Region Laterality Modality Lower Extremities, Hip, Pelvis Right C omputed Radiography 02/24/2024 3:39 PM SALES REP Narrative 02/24/2024 3:41 PM SALES REP EXAM DESCRIPTION: XR HIP RIGHT 2 OR [...] Kristan Loera D.O. PS: PS Report ID: [id number] Reading Location: [id number] Procedure Note Kristan Loera, DO - 02/24/2024 [...] Kristan Loera D.O. PS: PS Report ID: [id number] Reading Location: [place] [address] Carlos Manuel Herron MD IMG XR PROCEDURES Final Resu lt * (ABNORMAL) DIABETES FOOT EXAM (01/06/2024 2:56 PM SALES REP) SCRIBED DIABETIC FOOT EXAM Abnormal Historical Provider HEALTH MAINTENANCE Edited Result - Final * Albumin Creatinine Ratio, Urine (09/04/2023 11:40 AM CDT) [facility] Albumin Ur 16.8 mg/L Comment: Interpretive Data No reference range established. Current interpretive data was last revised 2018. Testing performed by: [address] [address] Creatinine Ur 91.7 mg/dL [facility] Comment: Interpretive Data No reference range established. Current interpretive data was last revised 2018. Testing performed by: [address] [address] Albumin Creatinine Ratio, Ur 18 1 - 29 mg/g [facility] Comment:Testing performed by : [address], [address] Urine 09/04/2023 11:4 0 AM CDT 09/04/2023 6:14 PM CDT us Elsy Chance MD LAB URINE ORDERABLES Final Result Performing Organization Address [facility] de Phone Number [address] Department [place] [address] * (ABNORMAL) Hemoglobin A1c (09/01/2023 12:34 PM CDT) [facility] Hgb A1C 6.2(H) 4.0 - 5.6 % Comment:Testing performed by : [address], [address] Estimated Average Glucose 131 mg/dL [facility] Comment: The ADA recommends reporting an estimated Average Glucose (eAG) with all Hemoglobin A1c results using the equation derived from a study of 507 normal and diabetic adults. Minority populations were underrepresented and children were not included. (Diabetes Care 31:4524-4066, 2008). The eAG is not equivalent to a fasting glucose. Testing performed by: [address] [address] Blood 09/01/2023 12:3 4 PM CDT 09/01/2023 12:34 PM CDT us Elsy Chance MD LAB BLOOD ORDERABLES Final Result [facility] [place] [address] [address] Department [place] [address] * (ABNORMAL) Lipid panel (10/23/2017 10:06 AM CDT) Cholesterol 201(H) <200 mg/dL [facility] HDL 46(L) >50 mg/dL [facility] Triglycerides 210(H) <150 mg/dL [facility] LDL 122(H) mg/dL (calc) [facility] [place] Comment: Reference range: <100 Desirable range <100 mg/dL for primary prevention; <70 mg/dL for patients with CHD or diabetic patients with > or = 2 CHD risk factors. LDL-C is now calculated using the Rinku calculation, which is a validated novel method providing better accuracy than the Friedewald equation in the estimation of LDL-C. Yaakov SS et al. CARINA. 2013;310(19): 5866-4096 (http://education.Qwalytics/faq/XQR336) Chol/HDL ratio 4.4 <5.0 (calc) [facility] [place] Non-HDL, (LDL+VLDL) 155(H) <130 mg/dL (calc) [facility] [place] Comment: For patients with diabetes plus 1 major ASCVD risk factor, treating to a non-HDL-C goal of <100 mg/dL (LDL-C of <70 mg/dL) is considered a therapeutic option. Blood specimen (specimen) 10/23/2017 10:06 AM CDT 10/23/2017 10:06 AM CDT Narrative [facility] - 10/24/2017 1:58 AM CDT FASTING:YES AN UPDATE OR CORRECTION HAS BEEN MADE TO NAME FASTING: YES Resulting Agency Comment Performing Organization Information: Site ID: [place] Name: [employer] Address: [address] [address] Director: Juan Pablo Kennedy D.O., MPH us Elsy Chance MD LAB BLOOD ORDERABLES Final Result ASHLEY VALDEZ JONNATHAN Gama from Last 3 Months or Most Recently Relevant to Health Maintenance Additional Health Concerns Infection Onset Date Last Indicated COVID: Recovered Comment:Added based on recent COVID infection. 02/25/2024 025 Insurance [facility] MEDICARE [facility] MEDIC[facility] Address: [address] [place] [address] UHC MEDICARE ADVANTAGE [facility] MEDIC[facility] [employer] MEDICARE UHC MEDICARE ADVANTAGE Advance Directives For more information, please contact: [phone] Documents on File Type Date Recorded Patient Quill Stripper Expl anation ADVANCE DIRECTIVE 04/08/2024 3:26 PM POWER OF INSURANCE UNDERWRITING ASSISTANT-MEDICAL ADVANCE DIRECTIVE 05/06/2018 2:02 PM DNR ADVANCE [...] 10:06 AM 10/19/2018 3:57 PM Care Teams Carpet Layer Helper Relationship Specialty Start Date End Date Elsy Chance MD PCP - General 05/10/16 Hayden Minor DC Chiropractic Medicine 09/17/16 Robby Ruiz MD [address] [place] [address] [place] [address] Consulting Physician Ophthalmology 09/17/16 Mateo Hogan MD [address] [address] Consulting Physician Ophthalmology 09/17/16 Lupis Linares MD [address] [facility] [address] [place] [address] Consulting Physician Pain Management 09/17/16 Demarcus Cardenas MD [address] [place] [address] [place] [address] Consulting Physician Gastroenterology 09/17/16 Enrrique Nath MD [address] [place] [address] [place] [address] Consulting Physician Rheumatology 11/05/17 [place] [address] [address] Consulting Physician Cardiovascular Disease 11/05/17 Alexey Carrera MD [employer] [address] Referring Physician Allergy and Immunology 05/12/19
--- OUTSIDE RECORDS SUMMARY | 2024-05-12 11:26 | XMS_ITS | Encounter Summary ---
Author Organization [facility] Address [address] [place] [address] Phone Care Team Providers Care Occupational Health Nurse Name Role Phone Elsy Chance MD Primary Care Provider +- [phone] Hayden Minor DC Unavailable +[phone] Robby Ruiz MD Unavailable +[phone] Mateo Hogan MD Unavailable [phone] Lupis Linares MD Unavailable [phone] Demarcus Cardenas MD Unavailable [phone] Enrrique Nath MD Unavailable [phone] Ed Zavala MD Unavailable [phone] Alexey Carrera MD Unavailable +[phone] Tejal MeyerW Unavailable [phone] Encounter Details Date Type Department Care Team (Late st Contact Info) Description 04/10/2021 Orders Only [facility] [address] [place] [address] Elsy Chance MD [address] [place] [address] Social History Tobacco Use Types Packs/Day Years Used Date Smoking Tobacco: Former Smokeless Tobacco: Never Alcohol Use Standard Drinks/Week Comments Not Currently 0 (1 standard drink = 0.6 oz pur e alcohol) PHQ-2 Answer Date Recorded PHQ-2 Total Score (If total score is 3 or more points, staff should administer the PHQ-9) 5 05/30/2020 Comments No Sex and Gender Information Value Date Recorded Sex Assigned at Not on file Legal Sex Female 10:51 AM SPRAY MAKER Gender Identity Not on file Sexual Orientation Not on file Occupation Industry Job Start Date Job End Date retired Not on file Not on file Not on file documented as of this encounter Plan of Treatment Not on file documented as of this encounter Procedures Procedure Name Priority Date/Time Associated Diagnosis Comments SCAN - LABS 04/10/2021 documented in this encounter Results * SCAN - LABS (04/10/2021) Elsy Chance MD Final Resu lt documented in this encounter Visit Diagnoses Not on filedocumented in this encounter Additional Health Concerns Infection Onset Date Last Indicated Resolved Time COVID: Suspected 05/31/2021 05/31/2021 05/31/2021 3:16 PM CDT COVID: Suspected 08/17/2021 08/17/2021 08/17/2021 10:11 AM CDT COVID: Suspected 08/28/2021 08/28/2021 08/28/2021 1:39 PM CDT COVID: Suspected 07/13/2022 07/13/2022 07/13/2022 4:36 PM CDT COVID: Suspected 01/31/2024 01/31/2024 01/31/2024 7:16 PM SPRAY MAKER COVID19 01/31/2024 01/31/2024 02/10/2024 3:05 AM SPRAY MAKER COVID: Recovered Comment:Added based on recent COVID infection. 02/10/2024 02/12/2024 02/25/2024 7:[address] COVID19 02/24/2024 02/24/2024 02/25/2024 7:16 AM SPRAY MAKER COVID: Recovered Comment:Added based on recent COVID infection. 02/25/2024 02/25/2024 COVID19 03/02/2024 03/02/2024 03/12/2024 3:07 AM SPRAY MAKER COVID: Suspected 04/30/2024 04/30/2024 04/30/2024 1:45 PM CDT documented as of this encounter Care Teams Occupational Health Nurse Relationship Specialty Start Date End Date Elsy Chance MD PCP - General 05/10/16 Hayden Minor DC Chiropractic Medicine 09/17/16 Robby Ruiz MD [address] [place] [address] [place] [address] Consulting Physician Ophthalmology 09/17/16 Mateo Hogan MD [address] [address] Consulting Physician Ophthalmology 09/17/16 Lupis Linares MD [address] [facility] [address] [place] [address] Consulting Physician Pain Management 09/17/16 Demarcus Cardenas MD [address] [place] [address] [place] [address] Consulting Physician Gastroenterology 09/17/16 Enrrique Nath MD [address] [place] [address] [place] [address] Consulting Physician Rheumatology 11/05/17 [place] [address] [place] [address] Consulting Physician Cardiovascular Disease 11/05/17 Alexey Carrera MD [facility] [place] [address] Referring Physician Allergy and Immunology 05/12/19 Tejal Meyer, [address] [place] [address] Graphic Design Teacher Construction Pit Worker 09/09/23 10/02/23 documented as of this encounter
--- OUTSIDE RECORDS SUMMARY | 2024-05-12 11:26 | XMS_ITS | Encounter Summary ---
Author Organization [facility] Address [address] [employer] [place] [address] Phone Care Team Providers Care Home Health Travel Pt Name Role Phone Elsy Chance MD Primary Care Provider + [phone] Whitney Deal MD Unavailable Hayden Minor DC Unavailable +[phone] Robby Ruiz MD Unavailable [phone] Mateo Hogan MD Unavailable [phone] Lupis Linares MD Unavailable [phone] Demarcus Cardenas MD Unavailable [phone] Enrrique Nath MD Unavailable [phone] Ed Zavala MD Unavailable [phone] Alexey Carrera MD Unavailable [phone] Tejal MeyerW Unavailable [phone] Encounter Details Date Type Department Care Team (Late st Contact Info) Description 05/05/2017 Orders Only [facility] [address] [place] [address] Elsy Chance MD [address] [place] [address] Social History Tobacco Use Types Packs/Day Years Used Date Smoking Tobacco: Former Smokeless Tobacco: Never Alcohol Use Standard Drinks/Week Comments Yes 0 (1 standard drink = 0.6 oz pur e alcohol) Comments No Sex and Gender Information Value Date Recorded Sex Assigned at Not on file Legal Sex Female 10:51 AM CRAY FISHING HAND Gender Identity Not on file Sexual Orientation Not on file documented as of this encounter Plan of Treatment Not on file documented as of this encounter Procedures Procedure Name Priority Date/Time Associated Diagnosis Comments SCAN - RADIOLOGY/IMAGING 05/05/2017 12:03 PM CDT documented in this encounter Results * SCAN - RADIOLOGY/IMAGING (05/05/2017 12:03 PM CDT) Anatomical Region Laterality Modality Other Elsy Chance MD Final Resu lt documented in this encounter Visit Diagnoses Not on filedocumented in this encounter Additional Health Concerns Infection Onset Date Last Indicated Resolved Time COVID: Suspected 12/17/2019 12/17/2019 12/18/2019 12:00 PM CRAY FISHING HAND Respiratory Infection (SANDEE), contact + droplet Comment:Automatically added due to negative COVID-19 result. 12/18/2019 12/18/2019 01/01/2020 3:0 7 AM CRAY FISHING HAND COVID: Suspected 05/31/2021 05/31/2021 05/31/2021 3:16 PM CDT COVID: Suspected 08/17/2021 08/17/2021 08/17/2021 10:11 AM CDT COVID: Suspected 08/28/2021 08/28/2021 08/28/2021 1:39 PM CDT COVID: Suspected 07/13/2022 07/13/2022 07/13/2022 4:36 PM CDT COVID: Suspected 01/31/2024 01/31/2024 01/31/2024 7:16 PM CRAY FISHING HAND COVID19 01/31/2024 01/31/2024 02/10/2024 3:05 AM CRAY FISHING HAND COVID: Recovered Comment:Added based on recent COVID infection. 02/10/2024 02/12/2024 02/25/2024 7:[address] COVID19 02/24/2024 02/24/2024 02/25/2024 7:16 AM CRAY FISHING HAND COVID: Recovered Comment:Added based on recent COVID infection. 02/25/2024 02/25/2024 COVID19 03/02/2024 03/02/2024 03/12/2024 3:07 AM CRAY FISHING HAND COVID: Suspected 04/30/2024 04/30/2024 04/30/2024 1:45 PM CDT documented as of this encounter Care Teams Home Health Travel Pt Relationship Specialty Start Date End Date Elsy Chance MD PCP - General 05/10/16 Whitney Deal MD Rheumatology 09/17/16 11/04/17 Hayden Minor DC Chiropractic Medicine 09/17/16 Robby Ruiz MD [address] [place] [address] [place] [address] Consulting Physician Ophthalmology 09/17/16 Mateo Hogan MD [address] [employer] [address] [address] [address] Consulting Physician Ophthalmology 09/17/16 Lupis Linares MD [address] [facility] [address] [place] [address] Consulting Physician Pain Management 09/17/16 Demarcus Cardenas MD [address] [place] [address] [place] [address] Consulting Physician Gastroenterology 09/17/16 Enrrique Nath MD [address] [place] [address] [address] [place] [address] Consulting Physician Rheumatology 11/05/17 [place] [address] [facility] [address] [place] [address] Consulting Physician Cardiovascular Disease 11/05/17 Alexey Carrera MD [address] [place] [address] [place] [address] Referring Physician Allergy and Immunology 05/12/19 Tejal Meyer, [address] [place] [address] Flash Welder Front End Web Developer 09/09/23 10/02/23 documented as of this encounter
[2024-05-12 11:27] LABS: Erythrocyte Sedimentation Rate 19 mm/hr (0-30)
--- OUTSIDE RECORDS SUMMARY | 2024-05-12 11:27 | XMS_ITS | Clinical Summary ---
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 Active buPROPion (WELLBUTRIN) 150 MG XL tablet 3 Active DULoxetine (CYMBALTA) [address] Particles 3 Active Jardiance 25 MG Tablet 3 Active famotidine (PEPCID) 20 MG Tablet 3 Active hydroxychloroqu ine (PLAQUENIL) 200 MG Tablet 3 Active labetalol (NORMODYNE) 200 MG Tablet 3 Active metFORMIN (GLUCOPHAGE) 500 MG Tablet 3 Active rosuvastatin (CRESTOR) 10 MG Tablet 3 Active Rybelsus 14 MG Tablet 3 Active predniSONE (DELTASONE) 10 MG Tablet 4 tabs for 2 days; then 3 tabs for 2 days, then 2 tabs for 2 days, then 1 tabs for 2 days, then discontinue. 20 Tablet 3 Active Active Problems No known active problems Immunizations Immunization Administration Dates Next Due Influenza Vaccine, Quadrivalent, PF 01/10/2020 Influenza Vaccine,unspecifie d Formulation 12/11/2020 Influenza, High-dose, Quadrivalent 11/28/2021, Influenza, Injectable, Quadrivalent 12/26/2016 Influenza, Seasonal, Injecta ble, Undefined 11/30/2014,12/01/2013,12/02/2012,2011,11/15/2008 Influenza, high-dose, trivalent, PF 12/23/2018,0 11/05/2017 Pneumococcal Vaccine - 13 Valent 04/11/2014 Pneumococcal Vaccine Adult - 23 Valent 09/04/2015,02/09/2010,04/17/2009 TDAP Vaccine 02/08/2011 Zoster Vaccine Recombinant 10/26/2018,08/26/2018 Social History Tobacco Use Types Packs/Day Years Used Date Smoking Tobacco: Never Smokeless Tobacco: Never Tobacco Cessation:Counseling Given: No Alcohol Use Standard Drinks/Week Comments Never 0 (1 standard drink = 0.6 oz pur e alcohol) Comments No Sex and Gender Information Value Date Recorded Sex Assigned at Not on file Legal Sex Female 7:30 PM CDT Gender Identity Not on file Sexual Orientation Not on file Last Filed Vital Signs Vital Sign Reading Time Taken Comments Blood Pressure 130/62 07/24/2022 1:52 PM CDT Pulse 73 07/24/2022 1:52 PM CDT Temperature 36.6 C (97.9 F) 07/24/2022 1:52 PM CDT Respiratory Rate 20 07/24/2022 1:52 PM CDT Oxygen Saturation 97% 07/24/2022 1:52 PM CDT Inhaled Oxygen Concentration - - Weight - - Height 165.1 cm (5' 5 ) 07/24/2022 1:52 PM CDT Body Mass Index - - Plan of Treatment Health Maintenance Due Date Last Done Comments DEXA Bone Density 1935 Hepatitis C Virus (HCV) Screening 1935 Respiratory Syncytial Virus (RSV) Immunization (Adult) (1 - 1-dose 75+ series) 10/15/2011 Influenza Immunization (#1) 10/12/202311/10, 12/11/2020, 12/01/2020, Additional history exists SARS-COV-2 Immunization (4 - 2024-25 season) 2023 10/13/2020, 04/05/2020, 03/15/2020 DTaP/Tdap/Td Immunization Discontinued 02/08/2011 Pneumococcal Immunization (50+ years) Completed 09/04/2015, 04/11/2014, 02/09/2010, Additional history exists Zoster Immunization Completed 10/26/2018, 9 Hepatitis B Immunization Aged Out No longer eligible based on patient's age to complete this topic Meningococcal Immunization (ACWY) Aged Out No longer eligible based on patient's age to complete this topic Rotavirus Immunization Aged Out No lo nger eligible based on patient's age to complete this topic Insurance MEDICARE C AETNA Care Teams Kiss Machine Operator Relationship Specialty Start Date End Date Elsy Chance MD [address] [place] [address] PCP - General Internal Medicine 07/31/17
--- OUTSIDE RECORDS SUMMARY | 2024-05-12 11:27 | XMS_ITS ---
Author Organization [facility] Address [address] [place] [address] Phone Care Team Providers Care Information Services Vice President Name Role Phone JUAN DAVID STONE Primary Care Provider [phone] Problems Includes: Active, inactive, and resolved Problems All Visits Onset Date Resolved Date Provider Condition S tatus Depressive Disorder NEC 05/08/2010 SUKUMAR NGUYEN M.D. Active Last Documented On 1 1:49PM ; [facility] HYPERLIPIDEMIA NEC/NOS 05/08/2010 KANDICE BADILLO M.D. Active Last Documented On 1 1:46PM ; [facility] IRRITABLE BOWEL SYNDROME 05/08/2010 KANDICE RUSH M.D. Active Last Documented On 1 1:48PM ; [facility] RHEUMATOID ARTHRITIS 05/08/2010 KANDICE NELSON M.D. Active Last Documented On 1 1:46PM ; [facility] ACUTE SINUSITIS NOS 05/25/2009 KANDICE ROBERTS M.DParvez Active Last Documented On 0 12:25PM ; [facility] Arthropathy NOS-Unspec 05/25/2009 KANDICE BADILLO M.D. Active Last Documented On 0 12:25PM ; [facility] DMII UNSPF UNCNTRLD 05/25/2009 KANDICE ROBERTS M.DParvez Active Last Documented On 0 12:24PM ; [facility] FIBROMATOSES NEC 05/25/2009 KANDICE NGUYEN M.D. Active Last Documented On 0 12:25PM ; [facility] HYPERTENSION NOS 05/25/2009 KANDICE NGUYEN M.D. Active Last Documented On 0 12:23PM ; [facility] Plan of Treatment Findings Encounter Date Continue current medication COVID SICK V ISIT- ESTABLISHED PATIENT with SHERLEY PORTILLO EXECUTIVE WELLNESS PROGRAMS DIRECTOR-C 07/14/2023 Last Documented On 4 3:08PM ; [facility] The options include close observation CO VID SICK VISIT- ESTABLISHED PATIENT with SHERLEY PORTILLO EXECUTIVE WELLNESS PROGRAMS DIRECTOR-C 07/14/2023 Last Documented On 4 3:08PM ; [facility] Instructions to patient Intervention and counseling on cessation of tobacco use Last Documented On 4 12:20PM ; [facility] Instructions for patient : B reast Self Exam discussed. Reviewed monthly self breast examination and technique Last Documented On 1 1:41PM ; [facility] Recommend diet and exercise at least 30 min three times per week Last Documented On 1 1:41PM ; [facility] Discussed Gardasil vaccinati on and recommend vaccination for HPV prevention. Handout given. Patient undertsands sexual transmission of high-risk HPV and association with abnormal pap smear and cervical cancer. recommend to decrease high risk behaviors such as: number of sexual partners, smoking, and contraceptive use Last Documented On 1 1:41PM ; [facility] Recommend preventative vacci nation including but not limited to influenza/flu vaccine, DTP, Rubella, Hepatitis B vaccination series Last Documented On 1 1:41PM ; [facility] Recommend annual pap smear e xamination or every three year if high risk hpv negative and 3 consecutive normal pap examination during preceding three years Last Documented On 1 1:41PM ; [facility] Recommend TSH, fasting gluco se, fasting lipid panel, CBC, BMP Last Documented On 1 1:41PM ; [facility] Recommend Calcium supplement ation and weight bearing exercise Last Documented On 1 1:41PM ; [facility] Recommended Bone Density Last Documented On 1 1:41PM ; [facility] Recommended Colonoscopy Pt r eferred to Gastroenetrologist. Pt understands that recommendation for colonoscopy is every 10 years after the age of 50 or age of 40 if first degree relative with history of colon cancer. Patient understands that failure to follow recommendation can lead to delayed diagnosis of colon cancer and patient accepts all responsibility regarding scheduling and follow up with regulatory specialist Last Documented On 1 1:41PM ; [facility] Assessments Includes: Assessments for all patient encounters Findings Encounter Date Acute bronchitis COVID SICK VISIT- ES TABLISHED PATIENT with ABA STEPHENS SALES ENABLEMENT MANAGER-BOILER HOUSE INSPECTOR 07/21/2023 Last Documented On 4 1:01PM ; [facility] Assessment of cough COVID SICK VISIT- ES TABLISHED PATIENT with ABA STEPHENS SALES ENABLEMENT MANAGER-BOILER HOUSE INSPECTOR 07/21/2023 Last Documented On 4 1:01PM ; [facility] Cough COVID SICK VISIT- ESTABLISHED MARZENA GLASS with SHERLEY PORTILLO EXECUTIVE WELLNESS PROGRAMS DIRECTOR-C 07/14/2023 Last Documented On 4 3:08PM ; [facility] Contact with and (Suspected) exposure to COVID-19 COVID SICK VISIT- ESTABLISHED PATIENT with MAGALYS Sol AMBRIZ EXECUTIVE WELLNESS PROGRAMS DIRECTOR-C 12/31/2021 Last Documented On 2 2:12PM ; [facility] COVID-19 infection COVID SICK VISIT- ES TABLISHED PATIENT with MAGALYS Sol AMBRIZ EXECUTIVE WELLNESS PROGRAMS DIRECTOR-C 12/31/2021 Last Documented On 2 2:12PM ; [facility] Exposure to a viral disease [Z20.828 - Contact with and (suspected) exposure to other viral communicable diseases] SICK VISIT with ROSIE ESCOBAR SALES ENABLEMENT MANAGER-FPA, EXECUTIVE WELLNESS PROGRAMS DIRECTOR-BC 10/13/2019 Last Documented On 0 4:06PM ; [facility] Sinusitis SICK VISIT with ROSIE ESCOBAR A PRN-FPA, EXECUTIVE WELLNESS PROGRAMS DIRECTOR-BC 10/13/2019 Last Documented On 0 4:06PM ; [facility] Asymptomatic postmenopausal status ANNUA L BEE ROBBER EXAM with KANDICE NGUYEN M.D. 05/08/2010 Last Documented On 1 1:58PM ; [facility] MAMMOGRAM SCREENING ANNUAL BEE ROBBER EXAM with KANDICE NGUYEN M.D. 05/08/2010 Last Documented On 1 1:58PM ; [facility] NORMAL FEMALE EXAM ANNUAL BEE ROBBER EXAM with KANDICE NGUYEN M.D. 05/08/2010 Last Documented On 1 1:58PM ; [facility] Screening Malig. Neoplasm Rectum ANNUAL BEE ROBBER EXAM with KNADICE NGUYEN M.D. 05/08/2010 Last Documented On 1 1:58PM ; [facility] Instructions Includes: Instructions for all patient encounters Instructions to patient Intervention and counseling on cessation of tobacco use Last Documented On 4 12:20PM ; [facility] Instructions for patient : B reast Self Exam discussed. Reviewed monthly self breast examination and technique Last Documented On 1 1:41PM ; [facility] Recommend diet and exercise at least 30 min three times per week Last Documented On 1 1:41PM ; [facility] Discussed Gardasil vaccinati on and recommend vaccination for HPV prevention. Handout given. Patient undertsands sexual transmission of high-risk HPV and association with abnormal pap smear and cervical cancer. recommend to decrease high risk behaviors such as: number of sexual partners, smoking, and contraceptive use Last Documented On 1 1:41PM ; [facility] Recommend preventative vacci nation including but not limited to influenza/flu vaccine, DTP, Rubella, Hepatitis B vaccination series Last Documented On 1 1:41PM ; [facility] Recommend annual pap smear e xamination or every three year if high risk hpv negative and 3 consecutive normal pap examination during preceding three years Last Documented On 1 1:41PM ; [facility] Recommend TSH, fasting gluco se, fasting lipid panel, CBC, BMP Last Documented On 1 1:41PM ; [facility] Recommend Calcium supplement ation and weight bearing exercise Last Documented On 1 1:41PM ; [facility] Recommended Bone Density Last Documented On 1 1:41PM ; [facility] Recommended Colonoscopy Pt r eferred to Gastroenetrologist. Pt understands that recommendation for colonoscopy is every 10 years after the age of 50 or age of 40 if first degree relative with history of colon cancer. Patient understands that failure to follow recommendation can lead to delayed diagnosis of colon cancer and patient accepts all responsibility regarding scheduling and follow up with regulatory specialist Last Documented On 1 1:41PM ; [facility] Medical Equipment - Implanted Devices Includes: Current and historical Devices No Medical Equipment Recorded Medications Includes: Current and historical Medications Current Medications (continue as prescribed) Donepezil HCl 5 MG Oral Tablet 07/21/2023 Provider: Diagnosis: Last Documented On 4 12:19PM By Melyssa RUSSELL ; [facility] Jardiance 25 MG Oral Tablet 12/25/2021 Provider: JUAN DAVID STONE Diagnosis: Last Documented On 2 2:09PM By Magalys CONNOR ; [facility] Labetalol HCl 200 MG Oral Tablet 12/25/2021 Provider : JUAN DAVID STONE Diagnosis: Last Documented On 2 2:09PM By Magalys CONNOR ; [facility] metFORMIN HCl 500 MG Oral Tablet 12/25/2021 Provider : JUAN DAVID STONE Diagnosis: Last Documented On 2 2:09PM By Magalys CONNOR ; [facility] Rosuvastatin Calcium 10 MG Oral Tablet 12/25/2021 Pr ovider: JUAN DAVID STONE Diagnosis: Last Documented On 2 2:09PM By Magalys CONNOR ; [facility] Rybelsus 14 MG Oral Tablet 12/25/2021 Provider: Monty STONE Diagnosis: Last Documented On 2 2:09PM By Magalys CONNOR ; [facility] Hydroxychloroquine Sulfate 200 MG Oral Tablet 12/26/19 Provider: Diagnosis: Last Documented On 2 2:09PM By Magalys CONNOR ; [facility] Famotidine 20 MG Oral Tablet 12/25/2021 Provider: JUAN DAVID STONE Diagnosis: Last Documented On 2 2:09PM By Magalys CONNOR ; [facility] DULoxetine HCl 60 MG Oral Capsule Delayed Releas e Particles 12/25/2021 Provider: Diagnosis: Last Documented On 2 2:09PM By Magalys CONNOR ; [facility] buPROPion HCl ER (XL) 150 MG Oral Tablet Extended Release 24 Hour 12/25/2021 Provider: JUAN DAVID DEUTSCH Diagnosis: Last Documented On 2 2:09PM By Magalys CONNOR ; [facility] Past Medications on file Benzonatate 200 MG Oral Capsule 07/21/2023 - 07/31/2023 Provider: ABA CRUZ RN-BOILER HOUSE INSPECTOR Diagnosis: Acute cough Take 1 tablet three times per day as needed Last Documented On 4 12:50PM By Aba Stephens APRN BOILER HOUSE INSPECTOR ; [facility] Doxycycline Hyclate 100 MG Oral Capsule 07/14/2023 - 07/24/2023 Provider: SHERLEY CONNOR Diagnosis: Acute cough One tablet twice a day Last Documented On 07/14/2023 3:11PM By Sherley MELARA ; [facility] Lagevrio 200 MG Oral Capsule 12/31/2021 - 07/21/2023 Provider: MAGALYS MELARA-C Diagnosis: COVID-19 4 tablet (800mg) q12 hours x 5 days Last Documented On 4 12:18PM By Melyssa RUSSELL ; [facility] Glimepiride 4 MG OR TABS 05/08/2010 - 12/31/2021 Provi zoë: Diagnosis: Last Documented On 2 2:08PM By Magalys CONNOR ; [facility] Actos 45 MG OR TABS 05/08/2010 - 12/31/2021 Provider: Diagnosis: Last Documented On 2 2:07PM By Magalys CONNOR ; [facility] metFORMIN HCl 500 MG TABS 05/08/2010 - 12/31/2021 Prov ider: Diagnosis: Last Documented On 2 2:08PM By Magalys CONNOR ; [facility] Librax 5-2.5 MG OR CAPS 05/08/2010 - 12/31/2021 Provid er: Diagnosis: Last Documented On 2 2:08PM By Magalys CONNOR ; [facility] Toprol XL 200 MG OR TB24 05/08/2010 - 12/31/2021 Provi zoë: Diagnosis: Last Documented On 2 2:08PM By Magalys CONNOR ; [facility] Lasix 40 MG OR TABS 05/08/2010 - 12/31/2021 Provider: Diagnosis: Last Documented On 2 2:08PM By Magalys CONNOR ; [facility] Diovan 320 MG OR TABS 05/08/2010 - 12/31/2021 Provider : Diagnosis: Last Documented On 2 2:07PM By Magalys CONNOR ; [facility] guanFACINE HCl 2 MG OR TABS 05/08/2010 - 12/31/2021 Pr ovider: Diagnosis: Last Documented On 2 2:08PM By Magalys CONNOR ; [facility] Norvasc 5 MG OR TABS 05/08/2010 - 12/31/2021 Provider: Diagnosis: Last Documented On 2 2:08PM By Magalys CONNOR ; [facility] Lipitor 10 MG OR TABS 05/08/2010 - 12/31/2021 Provider : Diagnosis: Last Documented On 2 2:08PM By Magalys CONNOR ; [facility] Lisinopril 20 MG OR TABS 05/08/2010 - 12/31/2021 Provi zoë: Diagnosis: Last Documented On 2 2:08PM By Magalys CONNOR ; [facility] Zoloft 50 MG OR TABS 05/08/2010 - 12/31/2021 Provider: Diagnosis: Last Documented On 2 2:08PM By Magalys CONNOR ; [facility] Fluticasone Propionate 50 MCG/ACT NA SUSP 05/08/2010 - 12/31/2021 Provider: Diagnosis: Last Documented On 2 2:07PM By Magalys CONNOR ; [facility] Potassimin 75 MG OR TABS 05/08/2010 - 12/31/2021 Provi zoë: Diagnosis: Last Documented On 2 2:08PM By Magalys CONNOR ; [facility] Cimzia 2 X 200 MG/ML SC KIT 05/08/2010 - 12/31/2021 Pr ovider: Diagnosis: Last Documented On 2 2:07PM By Magalys CONNOR ; [facility] Methotrexate 2.5 MG OR TABS 05/08/2010 - 12/31/2021 Pr ovider: Diagnosis: Last Documented On 2 2:09PM By Magalys CONNOR ; [facility] Folic Acid 1 MG OR TABS 05/08/2010 - 12/31/2021 Provid er: Diagnosis: Last Documented On 2 2:07PM By Magalys CONNOR ; [facility] Adult Aspirin EC Low Strength 81 MG OR TBEC 05/08/2010 - 12/31/2021 Provider: Diagnosis: Last Documented On 2 2:07PM By Magalys CONNOR ; [facility] Multivitamins OR TABS 05/08/2010 - 12/31/2021 Provider : Diagnosis: Last Documented On 2 2:08PM By Magalys CONNOR ; [facility] Calcium 1200 4179-5928 MG-UNIT OR CHEW 05/08/2010 - Provider: Diagnosis: Last Documented On 2 2:07PM By Magalys CONNOR ; [facility] B Complex-B12 OR TABS 05/08/2010 - 12/31/2021 Provider : Diagnosis: Last Documented On 2 2:07PM By Magalys CONNOR ; [facility] Acetaminophen ER 650 MG OR TBCR 05/08/2010 - 2 Provider: Diagnosis: Last Documented On 2 2:07PM By Magalys CONNOR ; [facility] NexIUM 40 MG OR CPDR 05/08/2010 - 12/31/2021 Provider: Diagnosis: Last Documented On 2 2:09PM By Magalys CONNOR ; [facility] Medications Administered Includes: Administered Medications in patient's chart No Administered Medications Recorded Vital Signs Includes: Vital Signs from 05/13/2023 through 05/12/2024 Vital Name 07/21/2023 12:20P 07/14/2023 02: 46P Pulse Rate-Sitting (bpm) 70 72 Temp-Oral (F) 97.8 98.9 Weight (lb) 152 149 Oxygen Saturation (%) 96 94 Respiration Rate (breaths/min) 20 Last Documented: On 07/21/2023 12:20P M ; [facility] On 07/14/2023 2:46PM ; [facility] Results Includes: Results from 05/13/2023 through 05/12/2024 SARS COVID-19 FLU A & B [facility] Ordered by SHERLEY CONNOR on 04/2023 Collected: Reported: 07/14/2023 15:04 Last Documented On 4 3:08PM ; [facility] Reviewed by SHERLEY CONNOR on 07/14/2023; All test results are final unless otherwise noted. COVID neg N (Normal) Last Documented On 4 3:03PM ; [facility] INFLUENZA A neg (Negative) N (Normal) Last Documented On 4 3:03PM ; [facility] INFLUENZA B neg (negative) N (Normal) Last Documented On 4 3:03PM ; [facility] INT. QC ACCEPTABLE? y N (Normal) Last Documented On 4 3:03PM ; [facility] LOT # & EXP. DATE [id number] 01/29/24 N (Normal) Last Documented On 4 3:03PM ; [facility] History of Present Illness History of Present Illness not supported for this document type No History of Present Illness Recorded Social History Description Last Updated Tobacco non-user 07/21/2023 Last Documented On 4 1:01PM ; [facility] No tobacco use 07/14/2023 Last Documented On 4 3:08PM ; [facility] Non-smoker 05/08/2010 Last Documented On 1 1:58PM ; [facility] Currently 05/25/2009 Last Documented On 0 12:28PM ; [facility] Marital history 05/25/2009 Last Documented On 0 12:28PM ; [facility] Smoking Status Unknown Procedures and Surgical History Includes: Procedures from 05/13/2023 through 05/12/2024 Procedures Code Diagnosis Performing Provider Service L ocation Service Date SARS-CO,SARS-COV-2, INFLUENZA A/B TEST (CLIA WAIVED) 20087 Acute cough HSERLEY PORTILLO EXECUTIVE WELLNESS PROGRAMS DIRECTOR-C [facility] 07/14/2023 Last Documented On 4 11:16AM ; [facility] Surgical History Last Updated History of bladder surgery 05/08/2010 Last Documented On 1 1:58PM ; [facility] History of sinus surgery 05/08/2010 Last Documented On 1 1:58PM ; [facility] History of arthroscopy with release of t ransverse carpal ligament 05/08/2010 Last Documented On 1 1:58PM ; [facility] History of pipe-thyroidectomy 05/08/2010 Last Documented On 1 1:58PM ; [facility] Dilation + Curettage 05/08/2010 Last Documented On 1 1:58PM ; [facility] History of cholecystectomy 05/08/2010 Last Documented On 1 1:58PM ; [facility] History of total abdominal hysterectomy 05/08/2010 Last Documented On 1 1:58PM ; [facility] Tonsillectomy 05/08/2010 Last Documented On 1 1:58PM ; [facility] History of hysterectomy 05/08/2010 Last Documented On 1 1:58PM ; [facility] Medical History Includes: Medical History in patient's chart Description Last Updated Taking OTC medications 07/14/2023 Last Documented On 4 3:08PM ; [facility] No exposure to a contagious disease 04/2023 Last Documented On 4 3:08PM ; [facility] Vaginal delivery 05/08/2010 Last Documented On 1 1:58PM ; [facility] History of chronic reflux esophagitis Last Documented On 1 1:58PM ; [facility] History of irritable bowel syndrome 04/11 Last Documented On 1 1:58PM ; [facility] History of thyroid disorder 05/08/2010 Last Documented On 1 1:58PM ; [facility] History of type I diabetes mellitus 04/11 Last Documented On 1 1:58PM ; [facility] Rheumatology history 05/08/2010 Last Documented On 1 1:58PM ; [facility] A colonoscopy was performed 2YRS 011 Last Documented On 1 1:58PM ; [facility] Aborta 1 05/08/2010 Last Documented On 1 1:58PM ; [facility] Last mammogram date: 200905/30/082010 Last Documented On 1 1:58PM ; [facility] LMP: 1988 05/08/2010 Last Documented On 1 1:58PM ; [facility] Para 3 05/08/2010 Last Documented On 1 1:58PM ; [facility] Patient recently had a dexa scan 05-08-10 05/08/2010 Last Documented On 1 1:58PM ; [facility] ANETTE/BSO 1985 ~A&P REPAIR 1993 ~GALLBLADD ER ~THYROIDECTOMY ~[id number] 05/25/2009 Last Documented On 0 12:28PM ; [facility] 1 elective (s) 05/25/2009 Last Documented On 0 12:28PM ; [facility] 3 living children 05/25/2009 Last Documented On 0 12:28PM ; [facility] A Pap smear was performed 05/25/2009 Last Documented On 0 12:28PM ; [facility] 4 05/25/2009 Last Documented On 0 12:28PM ; [facility] Last pap smear date 05/05/2008 05/25/2009 Last Documented On 0 12:28PM ; [facility] Family History Includes: Family History in patient's chart Description Last Updated Family history of diabetes mellitus 04/11 Last Documented On 1 1:58PM ; [facility] Family history of hypertension 1 Last Documented On 1 1:58PM ; [facility] Heart disease 05/08/2010 Last Documented On 1 1:58PM ; [facility] Review of Systems Review of Systems not supported for this document type No Review of Systems Recorded Mental Status Description Oriented to time, place, and person Functional Status No Functional Status Recorded Physical Exam Physical Exam not supported for this document type No Physical Exam Recorded Immunizations Includes: Immunizations in patient's chart Vaccine Dose # Date Site Reaction(s) Status Source Influenza (Quadrivalent)36 mo.& older PF 0.5ml (SD) 1 Complete (Repor breanna) Patient Last Documented On 1 1:43PM ; [facility] Pneumococcal Polyvalent (PPV23) 1 Complete (Reported) Patient Last Documented On 1 1:43PM ; [facility] Td 1 Complete (Reported) Leyda ent Last Documented On 1 1:43PM ; [facility] Allergies Includes: Active, inactive, and resolved Allergies Substance Type Reaction Onset Date Resolved Date Statu s Keflex Allergy 05/25/2009 Active Last Documented On 4 12:19PM ; [facility] Iodine Allergy 05/25/2009 Active Last Documented On 4 12:19PM ; [facility] Codeine Allergy 05/25/2009 Active Last Documented On 4 12:19PM ; [facility] Biaxin Allergy 05/25/2009 Active Last Documented On 4 12:19PM ; [facility] Encounters Includes: Encounters from 05/13/2023 through 05/12/2024 Encounter Provider Location Date Check-In Time Check-Out Time Diagnosis COVID SICK VISIT- ESTABLISHED PATIENT ABA STEPHENS SALES ENABLEMENT MANAGER-BOILER HOUSE INSPECTOR [facility] 07/21/19 24 12:17PM 12:38PM Assessment of Cough,Acute Bronchitis COVID SICK VISIT- ESTABLISHED PATIENT SHERLEY PORTILLO EXECUTIVE WELLNESS PROGRAMS DIRECTOR-C [facility] 07/14/19 24 2:31PM 3:02PM Cough Insurance Includes: Active Insurance Policies Plan Name Member ID Group # Subscriber Relationship Effect edgar Dates - AET [id number] FANNY ROSSI Self Clinical Notes Includes: Signed Clinical Notes starting from 03/01/2022 * Progress note Date Encounter Last Documented by 07/21/2023 COVID SICK VISIT- ESTABLISHED PA QUAN Last documented on 07/21/2023; 1:01 PM, ABA Jose STEPHENS [employer]; [facility], [facility] Chief Complaint The Chief Complaint is: Cough for 1 week. pt was here on 07/13, cough is not any better. History of Present Illness FANNY ROSSI is an 87 year old female. [...] - No myalgia - No taste decreased Fanny is a 87-year-old female who presents to the [facility] with cough x 1 week. She was seen 1 week ago in the [facility] for a cough and given doxycycline BID [...] days, 0 refills EndCited We discussed that Fanny's lungs sound clear today. If symptoms worsen, [...] tobacco assessment performed Review of medications documented. * Progress note Date Encounter Last Documented by 07/14/2023 COVID SICK VISIT- ESTABLISHED MARZENA GLASS Last documented on 07/14/2023; 3:08 PM, SHERLEY CONNOR; [facility], [facility] Chief Complaint The Chief Complaint is: Congested cough and nasal congestion since last friday. History of Present Illness FANNY ROSSI is an 87 year old female. [...] Not unpleasantly altered - No skin symptoms Fanny is an 87-year-old female patient that presented [...] y Normal LOT # & EXP. DATE [id number] 01/29/24 Normal Assessment - Cough [Cough] Therapy [...]
[2024-05-13 18:26] LABS: Add Urine Microscopic? YES; Appearance Urine Clear (Clear); Bacteria Urine 1+ /hpf; Bilirubin Urine Negative (Negative); Blood Urine Negative (Negative); Color Urine Light Yellow (Yellow); Glucose Urine UA 2+ (Negative); Ketones Urine Trace (Negative); Leukocyte Esterase Ur 1+ (Negative); Nitrate Urine Negative (Negative); Protein Urine Negative (Negative); RBC Urine 0-2 /hpf (0-2); Specific Grav Ur >= 1.030 (1.010-1.020); Squamous Epithelial Cell Urine Few /hpf (Few); Urobilinogen Urine 0.2 mg/dL (0.2-1.0); pH Urine 5.5 (5.0-8.0)
== END 2024-05-12 10:07 | disposition home or self-care (01) ==
LOC: CHSLAB 10:10
PROVIDERS: Visit Provider Internal Medicine
DX: M06.00 Rheumatoid arthritis without rheumatoid factor, unspecified site (principal); E11.9 Type 2 diabetes mellitus without complications; I10 Essential (primary) hypertension
CPT/HCPCS: 36415; 80053; 81001; 84100; 85025; 85652; 86140